=== PATIENT | male | born 1980 | race Asian ===

== ENCOUNTER 2024-02-21 17:10 | Inpatient (IN) | payer MEDICAID, SELFPAY ==
[2024-02-21] VITALS (11 sets, daily range): BP systolic 164–209; BP diastolic 111–134; PULSE 90–131; RESP 17–95; TEMP 36.6–37; O2SAT 94–97; BMI 24.0
--- NOTE | 2024-02-21 17:35 | EKG_ITS ---
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
--- NOTE | 2024-02-21 17:35 | XR_ITS ---
Examination: CTA carotids with intravenous contrast CTA brain, head with intravenous contrast. 2-D sagittal, coronal reconstructions. 3-D reconstructions. Exam date and time: February 21, 2024 1756 hrs. Indications: Stroke alert, onset dizziness weakness numbness in the left side of the body beginning 1:00 PM today CTDI: vol (mGy) 19.4 DLP: (mGycm) 474 Technique: Multiple CTA axial brain, head carotid images post intravenous contrast injection 75 cc, [id number]. 2-D sagittal, coronal reconstructions. 3-D reconstructions, 3-D post processing including vascular maximum intensity projection images. Low dose protocols were performed. One or more of the following dose reduction techniques were used; automated exposure control, adjustment of the mA and/or KV according to patient size, use of iterative reconstruction technique. Findings: No significant common carotid carotid bifurcation or internal carotid artery stenoses Dominant left vertebral artery with no critical stenoses No cerebral large vessel arterial occlusions, thrombus, dissection or cerebral aneurysm Impression: No significant neck arterial stenoses No cerebral large vessel arterial occlusions, thrombus, dissection or cerebral aneurysm
--- NOTE | 2024-02-21 17:35 | XR_ITS ---
Examination: CT brain head without contrast. 2-D sagittal coronal reconstructions Date and time of exam:February 21, 2024 at 1741 hrs. Indications: Stroke alert, onset dizziness, weakness left side of the body beginning 1:00 PM today CTDI: vol (mGy):50.3 DLP: (mGycm):1017 Technique: Multiple CT axial sections of the brain have been obtained, 5 mm slice thickness. Contrast has not been administered. 2-D sagittal, coronal reconstructions have been obtained Low dose protocols were performed. One or more of the following dose reduction techniques were used; automated exposure control, adjustment of the mA and/or KV according to patient size, use of iterative reconstruction technique. Findings: No significant ventricular enlargement. Multiple old appearing small basal ganglia infarcts Intra-axial or extra-axial hemorrhage density is not seen. No mass effect or midline shift Basal cisterns are not remarkable. Fourth ventricle is midline. Cranial vault intact. Impression: Negative for acute hemorrhage, mass effect or midline shift Multiple small old appearing basal ganglia infarcts, but clinical correlation advised Brain MRI follow-up would best assess for acute ischemic change
--- NOTE | 2024-02-21 17:58 | ESCONSULT_ITS ---
Tele Neuro Consultation Consultation Date 02/21/24 Most Recent Vital Signs Last Vital Signs Temp 97.9 F 02/21/24 17:25 Pulse 92 02/21/24 17:25 Resp 18 02/21/24 17:25 BP 209/132 H 02/21/24 17:25 Pulse Ox 97 02/21/24 17:25 O2 Del Method Room Air 02/21/24 17:25 Consultation Narrative [facility] Tele[facility]urology Consult Services Patient Name:???Diana Peter Date of :???1980 Date of Service:???02/21/2024 17:38:39 Diagnosis:?R20.2 - Paresthesia of skin Impression: ?43M presents noting R sided numbness off and on for the last 1 month, however today upon waking up at 1pm he noticed his left leg and left torso were numb. He is not sure that his left leg was clearly weak, but he did have trouble walking. He was at his baseline when he went to sleep at 0300. Patient denies a prior diagnosis of HTN. On exam with decreased sensation R face and LLE. CT head with acute/subacute/chronic hypodensities concerning for infarct in bilateral basal ganglia. Presentation concerning for stroke. Our recommendations are outlined below. Recommendations: ? Stroke/Telemetry Floor ? Neuro Checks ? Bedside Swallow Eval ? DVT Prophylaxis ? IV Fluids, Normal Saline ? Head of Bed 30 Degrees ? Euglycemia and Avoid Hyperthermia (PRN Acetaminophen) ? Initiate or continue Aspirin 325 MG daily ?Ok to lower blood pressure by about 15% in the ER ?MR brain w/wo Sign Out: ? Discussed with Emergency Department Provider Advanced Imaging:Advanced imaging has been ordered. Results pending. Metrics: Last Known Well: 02/21/2024 03:00:00 Dispatch Time: 02/21/2024 17:38:39 Arrival Time: 02/21/2024 17:10:00 Initial Response Time: 02/21/2024 17:41:16Symptoms: left sided numbness. Initial patient interaction: 02/21/2024 17:43:00 NIHSS Assessment Completed: 02/21/2024 17:50:06Patient is not a candidate for Thrombolytic. Thrombolytic Medical Decision: 02/21/2024 17:50:07Patient was not deemed candidate for Thrombolytic because of following reasons: LKW outside 4.5 hr window. . I personally Reviewed the CT Head and it Showed acute vs subacute vs chronic hypodensities bilateral basal ganglia Primary Provider Notified of Diagnostic Impression and Management Plan on: 02/21/2024 17:52:20 History of Present Illness:Patient is a 43 year old Male. Patient was brought by private transportation with symptoms of left sided numbness. 43M presents noting R sided numbness off and on for the last 1 month, however today upon waking up at 1pm he noticed his left leg and left torso were numb. He is not sure that his left leg was clearly weak, but he did have trouble walking. He was at his baseline when he went to sleep at 0300. ? Past Medical History: ?There is no history of Hypertension Medications: No Anticoagulant use? No Antiplatelet use Reviewed EMR for current medications Allergies:? Reviewed Social History: Smoking: Yes Family History: There is no family history of premature cerebrovascular disease pertinent to th is consultation ROS : 14 Points Review of Systems was performed and was negative except mentioned in HPI. Past Surgical History: There Is No Surgical History Contributory To Today?s Visit ? Examination: BP(204/133),?Pulse(106),?Blood Glucose(146) 1A: Level of Consciousness - Alert; keenly responsive?+ 0 1B: Ask Month and Age - 1 Question Right?+ 1 1C: Blink Eyes & Squeeze Hands - Performs Both Tasks?+ 0 2: Test Horizontal Extraocular Movements - Normal?+ 0 3: Test Visual Hill - No Visual Loss?+ 0 4: Test Facial Palsy (Use Grimace if Obtunded) - Normal symmetry?+ 0 5A: Test Left Arm Motor Drift - No Drift for 10 Seconds?+ 0 5B: Test Right Arm Motor Drift - No Drift for 10 Seconds?+ 0 6A: Test Left Leg Motor Drift - No Drift for 5 Seconds?+ 0 6B: Test Right Leg Motor Drift - No Drift for 5 Seconds?+ 0 7: Test Limb Ataxia (FNF/Heel-Hoang) - No Ataxia?+ 0 8: Test Sensation - Normal; No sensory loss?+ 0 9: Test Language/Aphasia - Normal; No aphasia?+ 0 10: Test Dysarthria - Normal?+ 0 11: Test Extinction/Inattention - No abnormality?+ 0 NIHSS Score:?1 NIHSS Free Text :?less sensation R face, L foot Pre-Morbid Modified Aiken Scale:0 Points = No symptoms at all Spoke with :?ED physcian This consult was conducted in real time using interactive audio and video technology. Patient was informed of the technology being used for this visit and agreed to proceed. Patient located in hospital and provider located at home/office setting. Patient is being evaluated for possible acute neurologic impairment and high probability of imminent or life-threatening deterioration. I spent total of 35 minutes providing care to this patient, including time for face to face visit via telemedicine, review of medical records, imaging studies and discussion of findings with providers, the patient and/or family. Dr Talia Rachel [facility] For Inpatient follow-up with [facility] physician please call [facility] at . As we are not an outpatient service for any post hospital d ischarge needs please contact the hospital for assistance. If you have any questions for the [facility] physicians or need to reconsult for clinical or diagnostic changes please contact us via [facility] at .
[2024-02-21] MEDS: hydrALAZINE INJ 20 MG/ML VIAL IV (18:07)
[2024-02-21 18:16] LABS: Basophils % (Auto) 0 % (0-2.5); Eosinophils # (Auto) 0.1 Thou/mm3 (0.0-0.5); Eosinophils % (Auto) 2 % (0-10); Hematocrit 59.9 % (41.0-53.0); Immature Granulocytes % (Auto) 0 % (0-0); Immature Granulocytes Auto 0.01 Thou/mm3 (0.00-0.00); Lymphocytes # (Auto) 1.7 Thou/mm3 (1.0-4.8); Lymphocytes % (Auto) 30 % (10-50); Mean Corpuscular HGB Conc 35.4 g/dl (31.0-37.0); Mean Corpuscular Hemoglobin 31.7 pg (25.0-35.0); Mean Corpuscular Volume 90 fL (80-100); Monocytes # (Auto) 0.4 Thou/mm3 (0.0-0.8); Monocytes % (Auto) 6 % (0-12); Neutrophils # (Auto) 3.5 Thou/mm3 (1.8-7.7); Neutrophils % (Auto) 61 % (37-80); Nucleated Red Blood Cell % 0 /100 WBC (0); Platelet Count 222 Thou/mm3 (140-440); RDW Standard Deviation 41.1 fL (35.1-43.9); Red Blood Count 6.68 Miln/mm3 (4.50-5.90); White Blood Count 5.7 Thou/mm3 (3.8-10.6)
--- NOTE | 2024-02-21 18:26 | PD.EDDIZZY ---
ED Dizzyness RME/HPI General Chief Complaint: Dizziness Stated Complaint: Dizzy and numb on left side Time Seen by Provider: 02/21/24 17:13 Arrival date/time: 02/21/24 17:10 This is a 43-year-old male that comes in with complaints of left leg left shoulder numbness that started At an unknown time. Patient states that he woke up approximately at 1:30 PM today and had the symptoms. Patient was ambulatory but stated that he had a hard time walking. Patient has no focal deficits upon initial assessment. Patient denies past medical history. Patient reports that he is an active smoker. Patient reports to smoking half a pack a day since he was 19 years old. Patient denies any surgeries. Patient reported dizziness and a mild headache. Patient arrives hypertensive to the emergency room. Related Data Previous Rx's ?Medication ?Instructions ?Recorded amlodipine 10 mg tablet (Norvasc) 10 mg PO QDAY 30 days #30 tabs 02/24/24 aspirin 81 mg tablet,delayed 81 mg PO QDAY 21 days #21 tabs 02/24/24 release atorvastatin 80 mg tablet (Lipitor) 80 mg PO HS 30 days #30 tabs 02/24/24 clopidogrel 75 mg tablet 75 mg PO QDAY 30 days #30 tabs 02/24/24 Allergies Allergy/AdvReac Type Severity Reaction Status Date / Time No Known Allergies Allergy Verified 02/21/24 17:16 Review of Systems Review of Systems Systems Reviewed: All systems reviewed, normal except as documented Past Medical History Past Medical History Comments PMH COMMENT: denies pmh ED Exam General General appearance: Present alert and in no apparent distress Head Head exam: Present atraumatic Eye Eye exam: Present normal appearance, PERRL and EOMI ENT ENT exam: Present normal exam, normal oropharynx and mucous membranes moist Neck Neck exam: Present normal inspection, full ROM and trachea midline Chest Chest inspection: Present normal inspection and symmetric chest wall rise Respiratory Respiratory exam: Present normal lung sounds bilaterally Cardiovascular Cardiovascular exam: Present regular rate, normal rhythm and normal heart sounds Abdominal Exam Abdominal exam: Present soft Extremities Exam Extremities exam: Present normal inspection and full ROM Back Exam Back exam: Present normal inspection and full ROM Neurological Exam Neurological exam: Present alert, oriented X3 and CN II-XII intact (no pronator drift, equal hand respiratory tech bilaterally, equal strengths bilateral legs, no focal deficits ) Psychiatric Psychiatric exam: Present normal affect and normal mood Skin Skin exam: Present warm, dry, intact and normal color Course Quality Measures none (admitted for stroke ) Orders Category Date Time Status Bedside Blood Glucose NOW Care 02/21/24 17:35 Active COVID-19 Screening Questionnaire NOW Care 02/21/24 20:10 Active Firm Administrator NOW Care 02/21/24 17:35 Active Continuous Pulse Oximetry NOW Care 02/21/24 17:35 Active Decision to Admit X1 Care 02/21/24 20:10 Completed EKG (ED ONLY) *Do not use* NOW Care 02/21/24 17:35 Completed EKG (ED ONLY) *Do not use* NOW Care 02/21/24 20:25 Completed Insert IV NOW Care 02/21/24 17:35 Completed NIH Stroke Scale now Care 02/21/24 17:35 Active NPO NOW Care 02/21/24 17:35 Completed Nurse Swallow Screen x1 Care 02/21/24 17:35 Active Consult to Neurology / Tele-Neurology Routine Cons 02/21/24 17:[address] angio stroke protocol Stat Exams 02/21/24 17:[address] stroke protocol Stat Exams 02/21/24 17:35 Completed EKG (ED Only) Stat Exams 02/21/24 17:35 Draft EKG (ED Only) Stat Exams 02/21/24 20:25 Draft Alcohol, Blood Medical Stat Lab 02/21/24 17:55 Completed B-Type Natriuretic Peptide Stat Lab 02/21/24 17:55 Completed CBC Stat Lab 02/21/24 17:55 Completed Comprehensive Metabolic Panel Stat Lab 02/21/24 17:55 Completed Drug Screen,Urine Stat Lab 02/21/24 18:38 Completed Magnesium Stat Lab 02/21/24 17:55 Completed Partial Thromboplastin Time Stat Lab 02/21/24 17:55 Completed Prothrombin Time with INR Stat Lab 02/21/24 17:55 Completed Troponin I Stat Lab 02/21/24 17:55 Completed Urinalysis Stat Lab 02/21/24 18:40 Completed Acetaminophen Tab [Tylenol ES Tab] Med 02/21/24 18:46 Discontinued 1,000 mg PO X1 ONE Aspirin Med 02/21/24 19:57 Discontinued 325 mg PO X1 ONE Nicardipine/Ns 20Mg Ivpb [Cardene Ivpb] Med 02/21/24 18:45 Discontinued 20 mg in 200 ml IV 5 mg/hr Sodium Chloride 0.9% 1000 ml [Ns] 1,000 ml Med 02/21/24 19:48 Discontinued IV 999 mls/hr hydrALAZINE INJ [Apresoline Inj] Med 02/21/24 17:36 Discontinued 20 mg IV X1 ONE Vital Signs Vital signs: Vital Signs Temperature 97.9 F 02/21/24 17:25 Pulse Rate 92 02/21/24 17:25 Respiratory Rate 18 02/21/24 17:25 Blood Pressure 209/132 H 02/21/24 17:25 Pulse Oximetry (%) 97 02/21/24 17:25 Oxygen Delivery Method Room Air 02/21/24 17:25 Procedures -ED EKG Interpretation #1: Date of EK02/21/24 Time of EK:16 Rate: 98 Interpretation: Interpreted by me (sinus rhythm with q waves in septal leads ) EKG Impression: No ectopy, Normal QRS and Normal intervals Dizziness MDM Narrative MDM Narrative:: This is a 43-year-old male that comes in with complaints of left leg left shoulder numbness that started At an unknown time. Patient states that he woke up approximately at 1:30 PM today and had the symptoms. Patient was ambulatory but stated that he had a hard time walking. Patient has no focal deficits upon initial assessment. Patient denies past medical history. Patient reports that he is an active smoker. Patient reports to smoking half a pack a day since he was 19 years old. Patient denies any surgeries. Patient reported dizziness and a mild headache. Patient arrives hypertensive to the emergency room. ct head: Findings: No significant ventricular enlargement. Multiple old appearing small basal ganglia infarcts Intra-axial or extra-axial hemorrhage density is not seen. No mass effect or midline shift Basal cisterns are not remarkable. Fourth ventricle is midline. Cranial vault intact. Impression: Negative for acute hemorrhage, mass effect or midline shift Multiple small old appearing basal ganglia infarcts, but clinical correlation advised Brain MRI follow-up would best assess for acute ischemic change cta head and neck: Findings: No significant common carotid carotid bifurcation or internal carotid artery stenoses Dominant left vertebral artery with no critical stenoses No cerebral large vessel arterial occlusions, thrombus, dissection or cerebral aneurysm Impression: No significant neck arterial stenoses No cerebral large vessel arterial occlusions, thrombus, dissection or cerebral aneurysm Labs significant for hgb 21.2 and hct of 59.9. Pt had elevated lfts. Patient hypertensive 200/100. Spoke to tele neurology which recommended to bring blood pressure down by 15 percent. Pt started on a nicardipine drip. Hospitalist called to admit patient. Patient data External records reviewed:: [facility] previous records Clinical information provided by:: patient Social determinants that could affect healthcare access:: none Patient has the following chronic illnesses:: none How is presenting disease/condition affected by chronic disease/condition?: no chronic disease Evaluation data The following diagnostics were reviewed and interpreted by me:: lab results, radiology exam(s) and EKG tracing(s) Lab and/or radiology exams considered but not ordered:: none Interpretation Summary: see note Medications / Prescriptions Medications or Prescriptions considered but not ordered:: none Medication administrations:: Medication Administration History Acetaminophen (Acetaminophen 325 Mg Tablet) 650 mg PO Q6H PRN PRN Reason: PAIN OR FEVER > 101 Stop: 03/22/24 20:28 Amlodipine Besylate (Amlodipine Besylate 5 Mg Tablet) 5 mg PO [facility] Stop: 03/26/24 20:59 Last Admin: 02/28/24 20:28 Dose: 5 mg Documented By: Admin: 02/27/24 20:21 Dose: 5 mg Documented By: Admin: 02/26/24 22:06 Dose: 5 mg Documented By: Admin: 02/25/24 20:56 Dose: 5 mg Documented By: TALAT Aspirin (Aspirin Ec 81 Mg Tabec) 81 mg PO QDAY [facility] Stop: 03/28/24 08:59 Last Admin: 02/28/24 08:51 Dose: 81 mg Documented By: Admin: 02/27/24 09:46 Dose: 81 mg Documented By: RYAN Atorvastatin Calcium (Atorvastatin Calcium 20 Mg Tablet) 80 mg PO [facility] Stop: 03/24/24 20:59 Last Admin: 02/28/24 20:24 Dose: 80 mg Documented By: Admin: 02/27/24 20:21 Dose: 80 mg Documented By: Admin: 02/26/24 22:06 Dose: 80 mg Documented By: Admin: 02/25/24 20:55 Dose: 80 mg Documented By: Admin: 02/24/24 20:10 Dose: 80 mg Documented By: Admin: 02/23/24 20:23 Dose: 80 mg Documented By: CHICO Clopidogrel Bisulfate (Clopidogrel Bisulfate 75 Mg Tablet) 75 mg PO QDAY [facility] Stop: 03/25/24 08:59 Last Admin: 02/26/24 11:35 Dose: Not Given Documented By: RYAN Non-Admin Reason: NPO Admin: 02/25/24 09:04 Dose: 75 mg Documented By: Admin: 02/24/24 08:32 Dose: 75 mg Documented By: REYNOLD Heparin Sodium (Porcine) (Heparin Sod Inj 5000 Unit/Ml Vial) 5,000 unit SC BID [facility] Stop: 03/09/24 20:59 Last Admin: 02/28/24 20:24 Dose: 5,000 unit Documented By: TALAT Co-signed By: Admin: 02/28/24 08:52 Dose: 5,000 unit Documented By: DEWEY Co-signed By: TAMMY Admin: 02/27/24 20:21 Dose: 5,000 unit Documented By: CHAO Co-signed By: CHICO Admin: 02/27/24 09:47 Dose: 5,000 unit Documented By: RYAN Co-signed By: REYNOLD Admin: 02/26/24 22:13 Dose: Not Given Documented By: YENIFER Non-Admin Reason: hold per MD Admin: 02/26/24 11:36 Dose: Not Given Documented By: RYAN Non-Admin Reason: Held for Procedure Admin: 02/25/24 20:59 Dose: 5,000 unit Documented By: TALAT Co-signed By: Admin: 02/25/24 09:04 Dose: 5,000 unit Documented By: RYAN Co-signed By: GALLO Admin: 02/24/24 20:11 Dose: 5,000 unit Documented By: CHICO Co-signed By: ALIN Lisinopril (Lisinopril 2.5 Mg Tablet) 5 mg PO QDAY [facility] Stop: 03/28/24 08:59 Last Admin: 02/28/24 08:51 Dose: 5 mg Documented By: Admin: 02/27/24 09:46 Dose: 5 mg Documented By: RYAN Ondansetron HCl (Ondansetron Inj 2 Mg/Ml Inj 2 Ml) 4 mg IV Q6H PRN; Protocol PRN Reason: NAUSEA OR VOMITING Stop: 03/22/24 20:28 Pantoprazole Sodium (Pantoprazole 40 Mg Tablet) 40 mg PO QDAY [facility] Stop: 03/23/24 08:59 Last Admin: 02/28/24 08:51 Dose: 40 mg Documented By: Admin: 02/27/24 09:46 Dose: 40 mg Documented By: Admin: 02/26/24 11:36 Dose: Not Given Documented By: JRR Non-Admin Reason: NPO Admin: 02/25/24 09:04 Dose: 40 mg Documented By: Admin: 02/24/24 08:32 Dose: 40 mg Documented By: Admin: 02/23/24 08:17 Dose: 40 mg Documented By: Admin: 02/22/24 09:53 Dose: 40 mg Documented By: DEWEY Sennosides (Senna Tablet) 1 tab PO QDAY [facility]; Protocol Stop: 03/23/24 08:59 Last Admin: 02/28/24 08:53 Dose: Not Given Documented By: JTulio Non-Admin Reason: Patient Refused Admin: 02/27/24 09:46 Dose: 1 tab Documented By: Admin: 02/26/24 11:36 Dose: Not Given Documented By: JRR Non-Admin Reason: NPO Admin: 02/25/24 09:04 Dose: 1 tab Documented By: Admin: 02/24/24 08:33 Dose: 1 tab Documented By: Admin: 02/23/24 08:17 Dose: 1 tab Documented By: Admin: 02/22/24 09:53 Dose: 1 tab Documented By: DEWEY Discontinued Medications Acetaminophen (Acetaminophen 500 Mg Tablet) 1,000 mg PO X1 ONE Stop: 02/21/24 18:47 Last Admin: 02/21/24 18:52 Dose: Not Given Documented By: EMILIA Non-Admin Reason: Patient Refused Amlodipine Besylate (Amlodipine Besylate 5 Mg Tablet) 10 mg PO QDAY [facility] Stop: 03/25/24 08:59 Last Admin: 02/24/24 08:32 Dose: 10 mg Documented By: REYNOLD Amlodipine Besylate (Amlodipine Besylate 5 Mg Tablet) 5 mg PO HS [facility] Stop: 03/26/24 20:59 Amlodipine Besylate (Amlodipine Besylate 5 Mg Tablet) 5 mg PO HS [facility] Stop: 03/26/24 20:59 Aspirin (Aspirin 325 Mg Tablet) 325 mg PO X1 ONE Stop: 02/21/24 19:58 Last Admin: 02/21/24 20:53 Dose: 325 mg Documented By: ZARA Aspirin (Aspirin Ec 81 Mg Tabec) 81 mg PO QDAY [facility] Stop: 03/23/24 08:59 Aspirin (Aspirin 325 Mg Tablet) 325 mg PO QDAY [facility] Stop: 03/23/24 08:59 Last Admin: 02/23/24 08:17 Dose: 325 mg Documented By: Admin: 02/22/24 09:53 Dose: 325 mg Documented By: DEWEY Aspirin (Aspirin Ec 81 Mg Tabec) 81 mg PO QDAY [facility] Stop: 03/25/24 08:59 Last Admin: 02/26/24 11:35 Dose: Not Given Documented By: RYAN Non-Admin Reason: NPO Admin: 02/25/24 09:04 Dose: 81 mg Documented By: Admin: 02/24/24 08:32 Dose: 81 mg Documented By: REYNOLD Atorvastatin Calcium (Atorvastatin Calcium 20 Mg Tablet) 40 mg PO [facility] Stop: 03/22/24 20:59 Last Admin: 02/22/24 20:04 Dose: 40 mg Documented By: Admin: 02/21/24 20:52 Dose: 40 mg Documented By: ZARA Benzocaine (Benzocaine 20% (Hurricaine) [place] 1 Dose) Confirm Administered Dose 1 dose TOP .STK-MED ONE Stop: 02/26/24 12:18 Last Admin: 02/26/24 14:20 Dose: Not Given Documented By: CU Non-Admin Reason: Override Medication Benzocaine (Benzocaine 20% (Hurricaine) [place] 1 Dose) 0 dose TOP X1 ONE Stop: 02/26/24 13:07 Last Admin: 02/26/24 13:07 Dose: 1 dose Documented By: MILLIE Fentanyl Citrate (Fentanyl Cit Inj 50 Mcg/Ml Amp 2ml) Confirm Administered Dose 200 mcg .ROUTE .STK-MED ONE Stop: 02/26/24 12:18 Last Admin: 02/26/24 14:20 Dose: Not Given Documented By: CU Non-Admin Reason: Override Medication Fentanyl Citrate (Fentanyl Cit Inj 50 Mcg/Ml Amp 2ml) 100 mcg IVP X1 ONE Stop: 02/26/24 13:07 Last Admin: 02/26/24 13:08 Dose: 100 mcg Documented By: MILLIE Flumazenil (Flumazenil Inj 0.1 Mg/Ml Vial 10 Ml) Confirm Administered Dose 1 mg .ROUTE .STK-MED ONE Stop: 02/26/24 12:19 Last Admin: 02/26/24 14:20 Dose: Not Given Documented By: MILLIE Non-Admin Reason: Override Medication Folic Acid (Folic Acid 1 Mg Tablet) 1 mg PO BID [facility] Stop: 02/27/24 20:59 Folic Acid (Folic Acid 1 Mg Tablet) 1 mg PO BID [facility] Stop: 02/27/24 10:04 Last Admin: 02/27/24 09:46 Dose: 1 mg Documented By: Admin: 02/26/24 22:06 Dose: 1 mg Documented By: Admin: 02/26/24 11:35 Dose: Not Given Documented By: RYAN Non-Admin Reason: Nausea Admin: 02/25/24 20:56 Dose: 1 mg Documented By: Admin: 02/25/24 09:04 Dose: 1 mg Documented By: Admin: 02/24/24 20:10 Dose: 1 mg Documented By: Admin: 02/24/24 08:33 Dose: 1 mg Documented By: Admin: 02/23/24 20:24 Dose: 1 mg Documented By: Admin: 02/23/24 08:18 Dose: 1 mg Documented By: Admin: 02/22/24 20:05 Dose: 1 mg Documented By: Admin: 02/22/24 10:10 Dose: 1 mg Documented By: DEWEY Hydralazine HCl (Hydralazine Inj 20 Mg/Ml Vial) 20 mg IV X1 ONE Stop: 02/21/24 17:37 Last Admin: 02/21/24 18:07 Dose: 20 mg Documented By: EMILIA Hydralazine HCl (Hydralazine Inj 20 Mg/Ml Vial) 20 mg IV X1 ONE Stop: 02/23/24 11:39 Last Admin: 02/23/24 11:42 Dose: 20 mg Documented By: REYNOLD Nicardipine/Sodium Chloride (Cardene Ivpb) 20 mg in 200 mls @ 50 mls/hr IV .Q4H PRN; Protocol PRN Reason: Per Protocol Stop: 03/22/24 18:44 Sodium Chloride (Ns) 1,000 mls @ 999 mls/hr IV .Q1H1M ONE Stop: 02/21/24 20:48 Last Infusion: 02/21/24 21:59 Dose: Infused Documented By: Admin: 02/21/24 20:52 Dose: 999 mls/hr Documented By: ZARA Lactated Ringer's (Lactated Ringers) 1,000 mls @ 150 mls/hr IV .Q6H40M [facility] Stop: 02/27/24 07:23 Sodium Chloride (Ns) 1,000 mls @ 150 mls/hr IV .Q6H40M [facility] Stop: 02/27/24 08:05 Last Admin: 02/27/24 17:30 Dose: Not Given Documented By: RYAN Non-Admin Reason: Discontinued Admin: 02/27/24 02:40 Dose: 150 mls/hr Documented By: Infusion: 02/27/24 02:37 Dose: Infused Documented By: Admin: 02/26/24 19:56 Dose: 150 mls/hr Documented By: Infusion: 02/26/24 19:56 Dose: Infused Documented By: Admin: 02/26/24 15:27 Dose: 150 mls/hr Documented By: RYAN Comments: started 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,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 Labetalol HCl (Labetalol Inj 5 Mg/Ml Vial 20 Ml) 10 mg IVP Q6H PRN PRN Reason: hypertension Stop: 03/22/24 20:44 Last Admin: 02/23/24 08:19 Dose: 10 mg Documented By: Admin: 02/21/24 21:51 Dose: 10 mg Documented By: ZARA Comments: Lisinopril (Lisinopril 2.5 Mg Tablet) 5 mg PO QDAY [facility] Stop: 03/25/24 12:44 Last Admin: 02/24/24 13:32 Dose: 5 mg Documented By: REYNOLD Lisinopril (Lisinopril 2.5 Mg Tablet) 5 mg PO QDAY [facility] Stop: 03/25/24 12:44 Last Admin: 02/26/24 11:36 Dose: Not Given Documented By: RYAN Non-Admin Reason: NPO Admin: 02/25/24 09:05 Dose: 5 mg Documented By: RYAN Lisinopril (Lisinopril 2.5 Mg Tablet) 5 mg PO X1 ONE Stop: 02/26/24 15:07 Last Admin: 02/26/24 15:27 Dose: 5 mg Documented By: RYAN Lorazepam (Lorazepam 0.5 Mg Tablet) 0.5 mg PO Q4HR PRN PRN Reason: CIWA Score 2-6 Stop: 02/27/24 09:41 Lorazepam (Lorazepam 0.5 Mg Tablet) 1 mg PO Q4HR PRN PRN Reason: CIWA SCORE 7-11 Stop: 02/27/24 09:41 Lorazepam (Lorazepam 0.5 Mg Tablet) 2 mg PO Q4HR PRN PRN Reason: CIWA SCORE 12-15 Stop: 02/27/24 09:41 Metoprolol Tartrate (Metoprolol Tartrate Inj 1 Mg/Ml Amp 5 Ml) 5 mg IVP X1 ONE Stop: 02/21/24 21:52 Last Admin: 02/21/24 23:41 Dose: Not Given Documented By: VR Non-Admin Reason: Cancelled by Provider Midazolam HCl (Midazolam Inj 1 Mg/Ml Vial 2 Ml) Confirm Administered Dose 6 mg .ROUTE .STK-MED ONE Stop: 02/26/24 12:18 Last Admin: 02/26/24 14:20 Dose: Not Given Documented By: CU Non-Admin Reason: Override Medication Midazolam HCl (Midazolam Inj 1 Mg/Ml Vial 2 Ml) 6 mg IV X1 ONE Stop: 02/26/24 13:07 Last Admin: 02/26/24 13:08 Dose: 6 mg Documented By: MILLIE Naloxone HCl (Naloxone Inj 0.4 Mg/Ml Vial) Confirm Administered Dose 0.4 mg .ROUTE .STK-MED ONE Stop: 02/26/24 12:19 Last Admin: 02/26/24 14:20 Dose: Not Given Documented By: CU Non-Admin Reason: Override Medication Ondansetron HCl (Ondansetron Inj 2 Mg/Ml Inj 2 Ml) Confirm Administered Dose 4 mg .ROUTE .STK-MED ONE Stop: 02/26/24 12:19 Last Admin: 02/26/24 14:21 Dose: Not Given Documented By: CU Non-Admin Reason: Override Medication Potassium Chloride (Potassium Chloride 20 Meq Tabcr) 40 meq PO X1 ONE Stop: 02/22/24 09:51 Last Admin: 02/22/24 10:09 Dose: 40 meq Documented By: DEWEY Potassium Chloride (Potassium Chloride 20 Meq Tabcr) 40 meq PO X1 ONE Stop: 02/24/24 12:40 Last Admin: 02/24/24 13:32 Dose: 40 meq Documented By: REYNOLD Thiamine HCl (Thiamine 100 Mg Tablet) 100 mg PO BID [facility] Stop: 02/27/24 20:59 Thiamine HCl (Thiamine 100 Mg Tablet) 100 mg PO BID [facility] Stop: 02/27/24 10:04 Last Admin: 02/27/24 09:46 Dose: 100 mg Documented By: Admin: 02/26/24 22:07 Dose: 100 mg Documented By: Admin: 02/26/24 11:36 Dose: Not Given Documented By: RYAN Non-Admin Reason: NPO Admin: 02/25/24 20:57 Dose: 100 mg Documented By: Admin: 02/25/24 09:04 Dose: 100 mg Documented By: Admin: 02/24/24 20:11 Dose: 100 mg Documented By: Admin: 02/24/24 08:33 Dose: 100 mg Documented By: Admin: 02/23/24 20:24 Dose: 100 mg Documented By: Admin: 02/23/24 08:17 Dose: 100 mg Documented By: Admin: 02/22/24 20:05 Dose: 100 mg Documented By: Admin: 02/22/24 10:10 Dose: 100 mg Documented By: MarcelT see mar Consultations Consultation(s) initiated? (list below): No Diagnosis Most likely diagnosis given after review of the tests above:: stroke, brain bleed Admission Indicated Admission indicated?: indicated Admission Request Was there a request for admission?: Yes Admission Attestation Admission request attestation: Discussed case with [] from Hospitalist service regarding admission. Discussed patients ED course, exam findings, labs, and radiology results. The Hospitalist [agrees,declines] to accept the patient for admission. Disposition Plan Disposition Plan: Discharge Discharge Attestation Discharge Attestation: The patient and all family members were given an opportunity to ask questions and understood the discharge instructions. Discharge instructions specifically effects, indications for sooner follow up or return to the emergency department, and the expected course of current diagnosis. Patient condition: Stable Discharge Plan Plan Patient Disposition: Admit Acute Care w/in Hospital Disposition Comment: Hold discharge pending further instructions please! Patient condition on transfer: Stable Problem List Clinical Impression: Polycythemia, Hypertensive urgency, Acute CVA (cerebrovascular accident) PA/CARVER HAND Supervising Physician PA/CARVER HAND Supervising Physician: geraldine
[2024-02-21 18:29] LABS: INR 1.2 (0.9-1.3); Partial Thromboplastin Time 30.3 Seconds (22.0-36.0); Prothrombin Time 12.7 Seconds (9.0-12.2)
[2024-02-21 18:33] LABS: Hemoglobin 21.2 g/dL (13.5-16.0)
[2024-02-21 18:35] LABS: Alanine Aminotransferase 50 U/L (10-49); Albumin, Serum 4.9 gm/dL (3.5-5.0); Albumin/Globulin Ratio 1.6 (1.2-2.2); Alcohol, Blood Medical < 3.0 mg/dL (0-10.0); Alkaline Phosphatase 78 U/L (46-116); Anion Gap 7 (7-16); Aspartate Amino Transferase 37 U/L (0-34); BUN/Creatinine Ratio 7 Ratio (12-20); Bilirubin,Total 1.2 mg/dL (0.3-1.2); Blood Urea Nitrogen 8 mg/dL (9-23); Calcium 10.1 mg/dL (8.3-10.6); Calcium (Corrected) 10.1 mg/dL (8.5-10.1); Carbon Dioxide 25.7 mMol/L (20.0-31.0); Chloride 103 mMol/L (98-107); Creatinine (Component) 1.1 mg/dL (0.6-1.3); Glucose 123 mg/dL (74-106); Magnesium 1.9 mg/dL (1.6-2.6); Osmolality,Calculated 271 (275-295); Potassium 3.8 mMol/L (3.4-5.1); Sodium 136 mMol/L (136-145); Total Protein 7.9 gm/dL (5.7-8.2); Troponin I < 0.002 ng/mL (0.0-0.045); eGFR > 60 See Note
[2024-02-21 18:48] LABS: B-Type Natriuretic Peptide < 20 pg/mL (0-100)
[2024-02-21 19:12] LABS: Collection Type, Urine Clean Catch; Squamous Epithelial Cell,Urine 0 /hpf (0-5); WBC,Urine 0 /hpf (0-5)
[2024-02-21 19:22] LABS: Bilirubin,Urine Negative (Negative); Blood,Urine Negative (Negative); Clarity,Urine Clear (Clear/Hazy); Color,Urine Colorless (Lt Yel-Yel); Glucose, Urine Negative (Negative); Ketones,Urine Negative (Negative); Leukocyte Esterase,Urine Negative (Negative); Nitrite,Urine Negative (Negative); PH,Urine 6.5 (5.0-7.0); Protein,Urine Negative (Neg - Trace); RBC,Urine < 1 /hpf (0-3); Specific Gravity,Urine 1.017 (1.001-1.035); Urobilinogen,Urine Negative mg/dL (0.0-1.0)
[2024-02-21 19:31] LABS: Amphetamine/Methamp Scrn,U Negative (Negative); Barbiturate Screen,Urine Negative (Negative); Benzodiazepines Screen,Urine Negative (Negative); Benzoylecgonine Screen, Ur Negative (Negative); Fentanyl Screen,Urine Negative (Negative); Opiate Screen,Urine Negative (Negative); THC Screen,Urine Negative (Negative)
--- NOTE | 2024-02-21 20:25 | EKG_ITS ---
[facility] Test Date: 2024-02-21 Pat Name: RUTHIE WALTERS Department: Room: - Gender: Male Circular [place]: : 1980 Requested By: Doug Payne Order Number: [id number] Reading MD: Doug Payne Measurements Intervals [place] Rate: 129 P: 56 UT: 166 QRS: 21 QRSD: 83 T: 40 QT: 297 QTc: 436 Interpretive Statements SINUS TACHYCARDIA SEPTAL MYOCARDIAL INFARCTION , PROBABLY OLD [40+ ms Q WAVE IN V1/V2] Compared to ECG 02/21/2024 18:16:23 Sinus rhythm no longer present Myocardial infarct finding still present /[id number]/[id number]
--- NOTE | 2024-02-21 20:34 | ECHO_ITS ---
Transthoracic Echo Report Ht (in): 64 Wt (lb): 140 Exam Location: Portable Status: Emergency Dialysis Equipment Technician: Emma Elliott Indications: Procedure Performed: BP: 166 / 122 HR: 96 Rhythm: Sinus Technical Quality: Fair Contrast: Agitated Saline Total Dose (mL): MEASUREMENTS (Male / Female) Normal Values 2D ECHO LV Diastolic Diameter PLAX 4.2 cm 4.2 - 5.9 / 3.9 - 5.3 cm LV Systolic Diameter PLAX 2.6 cm IVS Diastolic Thickness 0.9 cm 0.6 - 1.0 / 0.6 - 0.9 cm LVPW Diastolic Thickness 0.8 cm 0.6 - 1.0 / 0.6 - 0.9 cm LV Relative Wall Thickness 0.4 LVOT Diameter 2.0 cm LA Volume Index 16.2 cm?/m? 16 - 28 cm?/m? Ascending Aorta Diameter 3.0 cm M-MODE Aortic Root Diameter MM 2.8 cm LA Systolic Diameter MM 2.9 cm LA Ao Ratio MM 1.0 AV Cusp Separation MM 1.9 cm DOPPLER AV Peak Velocity 96.1 cm/s AV Peak Gradient 3.7 mmHg AV Mean Gradient 2.0 mmHg AV Velocity Time Integral 22.2 cm LVOT Peak Velocity 91.6 cm/s LVOT Peak Gradient 3.4 mmHg LVOT Velocity Time Integral 20.2 cm LVOT Cardiac Index 3579.4 cm?/min?m? AV Area Cont Eq vti 2.9 cm? AV Area Cont Eq pk 3.0 cm? MV Peak Velocity 73.2 cm/s MV Peak Gradient 2.1 mmHg MV Mean Velocity 46.2 cm/s MV Mean Gradient 1.0 mmHg MV Area PHT 4.2 cm? Mitral E Point Velocity 72.8 cm/s Mitral A Point Velocity 61.1 cm/s Mitral E to A Ratio 1.2 LV E' Lateral Velocity 9.1 cm/s Mitral E to LV E' Lateral Ratio 8.0 LV E' Septal Velocity 7.4 cm/s Mitral E to LV E' Septal Ratio 9.8 FINDINGS Left Ventricle Normal left ventricular size, wall thickness, systolic function with no obvious regional wall motion abnormalities. The ejection fraction is visually estimated at 65-70%. Right Ventricle The right ventricle is normal in size and systolic function. Left Atrium The left atrium is normal by two-dimensional, color flow and Doppler imaging with no structural abnormalities, no thrombus formation present. Right Atrium The right atrium is normal by two-dimensional imaging, color flow and Doppler imaging with no struct ural abnormalities, no thrombus formation present. Atrial Septum The interatrial septum appears normal with no evidence of a shunt. Aorta The aorta is normal by two-dimensional, color flow and Doppler interrogation. Mitral Valve The mitral valve is normal by two-dimensional, color flow and Doppler interrogation. There is trace mitral valve regurgitation. Aortic Valve The aortic valve is trileaflet and normal by two-dimensional, color flow and Doppler interrogation. There is no significant aortic valve regurgitation. Tricuspid Valve The tricuspid valve is normal by two-dimensional, color flow and Doppler interrogation. There is no significant tricuspid valve regurgitation. Pulmonic Valve The pulmonic valve is not well visualized. There is no significant pulmonic valve regurgitation. Vessels The pulmonary artery appears normal. The inferior vena cava pulmonary and hepatic veins appear wes l. Pericardium The pericardium is normal by two-dimensional imaging. There is no significant pericardial effusion. CONCLUSIONS Negative bubble study. No evidence of PFO or ASD. Normal LV size and function. Estimated EF 65-70% Normal RV size and function. Trace MR. Arminda Breen (Electronically Signed) Final Date: 25 February 2024 10:09
[2024-02-21] MEDS: SODIUM CHLORIDE 0.9% 1000 ML 1,000 ML 999 ML IV (20:52)
[2024-02-21] MEDS: ATORVASTATIN CALCIUM 20 MG TABLET 40 MG PO (20:52)
[2024-02-21] MEDS: Aspirin 325 MG TABLET PO (20:53)
--- NOTE | 2024-02-21 21:48 | PC.NURSE ---
report received from Windy Henriquez in ED
[2024-02-21] MEDS: LABETALOL INJ 5 MG/ML VIAL 20 ML 10 MG IVP (21:51)
--- NOTE | 2024-02-21 21:52 | PD.RESHP ---
Documentation for date of: 02/21/24 [facility] History of Present Illness History of present illness: A 43-year-old male with no significant medical history presented to the emergency department after experiencing dizziness, left leg and shoulder numbness, and difficulty walking. These symptoms began at 1:30 PM after waking from sleep. The patient also reported associated dizziness and a headache, but denied any prior similar episodes, loss of consciousness, seizures, vision changes, chest pain, shortness of breath, or palpitations. On examination, the patient was hypertensive with a blood pressure of 210/132, but other vital signs were normal. Laboratory results showed polycythemia (hemoglobin 21.2, hematocrit 59.9) with other labs unremarkable. An EKG showed sinus tachycardia. A stroke alert was initiated, and a teleneuro consultation was requested. The NIH Stroke Scale score was 1. A CT head scan revealed multiple small old basal ganglia infarcts but no hemorrhage, mass, or midline shift. A CTA of the head and neck showed no large vessel occlusions . Based on these findings, teleneuro recommended admitting the patient for further evaluation and workup. In ED patient patient received hydralazine 20 IV push x 1, and was placed on nicardipine drip. Patient will be admitted for CVA/TIA as well as hypertensive emergency treatment and management. #PMH as above #PSH none #Allergies NKDA #Social history patient smokes 1 pack daily for more than 20 years, 5-6 beer daily, denies any recreational drug use, lives with the Review of Systems Review of Systems Systems Reviewed: All systems reviewed, normal except as documented Exam Vital Signs Temp Pulse Resp BP Pulse Ox O2 Del Method 98.6 F 118 H 22 H 164/128 H 95 Room Air 02/21/24 18:40 02/21/24 21:06 02/21/24 21:06 02/21/24 21:06 02/21/24 21:06 02/21/24 21:06 Narrative Exam GENERAL: no acute distress, AAO x3, well nourished. HEENT: Head AT/ NC. Mucous membranes moist. PERRL. NECK: Supple, no lymphadenopathy, no carotid bruits. CARDIOVASCULAR: tachicardic. Normal S1/S2, No m/r/g. No pitting edema of bilateral LEs. RESPIRATORY: CTAB. No wheezing, rhonchi, crackles. GASTROINTESTINAL: Abdomen soft, non tender no palpable masses. Bowel sounds present in all 4 quadrants. MUSCULOSKELETAL:? No cyanosis or edema, no visible joint swelling. NEUROLOGICAL: CN II-XII grossly intact. No focal deficits. Sensation intact, symmetric. PSYCHIATRIC: Awake and alert, not agitated, normal mood and affect. INTEGUMENTARY: No obvious rashes, no jaundice, normal turgor. Results: Labs 02/22/24 04:41 02/22/24 04:41 Labs: Short CBC 02/21/24 Range/Units 17:55 WBC 5.7 (3.8-10.6) Thou/mm3 Hgb 21.2 H* (13.5-16.0) g/dL Hct 59.9 H (41.0-53.0) % Plt Count 222 (140-440) Thou/mm3 BMP 02/21/24 17:55 Sodium 136 Potassium 3.8 Chloride 103 Carbon Dioxide 25.7 BUN 8 L Creatinine 1.1 Glucose 123 H Calcium 10.1 Cardiac Enzymes 02/21/24 Range/Units 17:55 Troponin I < 0.002 (0.0-0.045) ng/mL Liver Function 02/21/24 Range/Units 17:55 Total Bilirubin 1.2 (0.3-1.2) mg/dL AST 37 H (0-34) U/L ALT 50 H (10-49) U/L Alkaline Phosphatase 78 (46-116) U/L Albumin 4.9 (3.5-5.0) gm/dL Urine 02/21/24 Range/Units 18:40 Urine Color Colorless A (Lt Yel-Yel) Urine Clarity Clear (Clear/Hazy) Urine pH 6.5 (5.0-7.0) Ur Specific [place] 1.017 (1.001-1.035) Urine Protein Negative (Neg - Trace) Urine Glucose (UA) Negative (Negative) Quality Measures Quality Measures VTE prophylaxis Medications Home Medications and Allergies Home Medications ?Medication ?Instructions ?Recorded ?Confirmed ?Type No Known Home Medications 02/21/24 02/21/24 History Allergies Allergy/AdvReac Type Severity Reaction Status Date / Time No Known Allergies Allergy Verified 02/21/24 17:16 Visit Medications Acetaminophen (Acetaminophen 325 Mg Tablet) 650 mg PO Q6H PRN PRN Reason: PAIN OR FEVER > 101 Stop: 03/22/24 20:28 Aspirin (Aspirin Ec 81 Mg Tabec) 81 mg PO QDAY MINO Stop: 03/23/24 08:59 Atorvastatin Calcium (Atorvastatin Calcium 20 Mg Tablet) 40 mg PO HS MINO Stop: 03/22/24 20:59 Last Admin: 02/21/24 20:52 Dose: 40 mg Labetalol HCl (Labetalol Inj 5 Mg/Ml Vial 20 Ml) 10 mg IVP Q6H PRN PRN Reason: hypertension Stop: 03/22/24 20:44 Metoprolol Tartrate (Metoprolol Tartrate Inj 1 Mg/Ml Amp 5 Ml) 5 mg IVP X1 ONE Stop: 02/21/24 21:52 Ondansetron HCl (Ondansetron Inj 2 Mg/Ml Inj 2 Ml) 4 mg IV Q6H PRN; Protocol PRN Reason: NAUSEA OR VOMITING Stop: 03/22/24 20:28 Pantoprazole Sodium (Pantoprazole 40 Mg Tablet) 40 mg PO QDAY MINO Stop: 03/23/24 08:59 Sennosides (Senna Tablet) 1 tab PO QDAY [facility]; Protocol Stop: 03/23/24 08:59 Discontinued Medications Acetaminophen (Acetaminophen 500 Mg Tablet) 1,000 mg PO X1 ONE Stop: 02/21/24 18:47 Last Admin: 02/21/24 18:52 Dose: Not Given Aspirin (Aspirin 325 Mg Tablet) 325 mg PO X1 ONE Stop: 02/21/24 19:58 Last Admin: 02/21/24 20:53 Dose: 325 mg Hydralazine HCl (Hydralazine Inj 20 Mg/Ml Vial) 20 mg IV X1 ONE Stop: 02/21/24 17:37 Last Admin: 02/21/24 18:07 Dose: 20 mg Nicardipine/Sodium Chloride (Cardene Ivpb) 20 mg in 200 mls @ 50 mls/hr IV .Q4H PRN; Protocol PRN Reason: Per Protocol Stop: 03/22/24 18:44 Sodium Chloride (Ns) 1,000 mls @ 999 mls/hr IV .Q1H1M ONE Stop: 02/21/24 20:48 Last Admin: 02/21/24 20:52 Dose: 999 mls/hr Assessment & Plan Plan 43-year-old male with past medical history of hypertension not on any medication was admitted for CVA/TIA rule out and hypertensive urgency treatment and management. #Dizziness #Headache #Left-sided numbness/weakness DDx will include CVA/TIA versus hypertensive urgency In ED patient was given 20 of IV push hydralazine, and was placed on nicardipine drip CT head was done which was negative for acute hemorrhage, mass effect or midline shift, showed multiple small old appearing basal ganglia infarcts, CTA head/neck was negative for any LVO, -Activate stroke protocol order set -NIHSS score 1. -Patient is not a candidate for Thrombolytic therapy,LWK above 4.5 hours. -Admit to telemetry -Neurochecks every 4 -Seizure precaution -Head of bed elevation 30 degree -N.p.o. for now -Bedside swallow evaluation -Aspirin 81 mg daily -Lipitor 40 mg daily -Tylenol as needed to avoid hyperthermia -Euglycemia state -Hemoglobin A1c ordered, follow-up with results -MRI w/wo contrast -Echo ordered -Dr Olson was consulted, recommendations appreciated -Physical therapy evaluation. -DVT prophylaxis with SCDs due to risk of bleeding -Control risk factors such as HTN, HLD -labetolol 10 PRN for SBP>210,DBP>110, HR>90 -Continue to closely monitor and follow-up with results #?polycitemia vera Elevated HxH, dizziness, headache ,Hyperviscosity -blood smear, -Jak2 mutation send out lab Disposition:Temetryle DVT prophylaxis: SCDs GI prophylaxis: none Diet: NPO Lines: PIV CODE STATUS:Full code Patient care was discussed with attending physician Dr. Elmer Toney MD PGY-2 I have carefully reviewed this document. Due to imperfections in the voice software, there could be grammatical errors including phonetic/typographic errors. This in no way compromises the medical care the patient is receiving Attending Provider Attestation/Addendum I reviewed labs, imaging, EKG, home medications and prior available records. Face to face evaluation was performed by me. I have personally examined the patient and discussed assessment and plan with the IM team. I reviewed the resident note and agree with the plan with exceptions as below. 43-year-old male with history of tobacco use who presented with a chief complaint of left sided numbness and weakness started around 1:30 PM on the day of admission in addition to weakness and imbalance. His symptoms resolved at the time of my evaluation. CT head showed multiple bilateral basal ganglia acute versus subacute infarcts. He was admitted for further workup. Left-sided weakness: Differential diagnosis includes CVA versus TIA versus MS versus hypertensive encephalopathy. Consulted teleneurology: Recommended aspirin, atorvastatin, 15% reduction in the BP, and brain MRI. Continue frequent neurochecks every 4 hours. Hypertensive emergency: He was started on nicardipine drip in the ED. Stopped the nicardipine drip after we reached the 15% reduction goal. IV labetalol pushes as needed. Monitor BP. Tobacco use: Counseled the patient regarding importance of smoking cessation.
[2024-02-22] VITALS (8 sets, daily range): BP systolic 138–183; BP diastolic 92–110; PULSE 68–115; RESP 12–97; TEMP 36.1–36.6; O2SAT 95–98; BMI 23.6
[2024-02-22 05:27] LABS: Misc Send Out* See Sep Rpt
[2024-02-22 05:47] LABS: Basophils % (Auto) 0 % (0-2.5); Eosinophils # (Auto) 0.1 Thou/mm3 (0.0-0.5); Eosinophils % (Auto) 1 % (0-10); Hematocrit 57.6 % (41.0-53.0); Hemoglobin 19.7 g/dL (13.5-16.0); Immature Granulocytes % (Auto) 0 % (0-0); Immature Granulocytes Auto 0.02 Thou/mm3 (0.00-0.00); Lymphocytes # (Auto) 1.8 Thou/mm3 (1.0-4.8); Lymphocytes % (Auto) 24 % (10-50); Mean Corpuscular HGB Conc 34.2 g/dl (31.0-37.0); Mean Corpuscular Hemoglobin 31.5 pg (25.0-35.0); Mean Corpuscular Volume 92 fL (80-100); Monocytes # (Auto) 0.6 Thou/mm3 (0.0-0.8); Monocytes % (Auto) 8 % (0-12); Neutrophils # (Auto) 5.1 Thou/mm3 (1.8-7.7); Neutrophils % (Auto) 66 % (37-80); Nucleated Red Blood Cell % 0 /100 WBC (0); Platelet Count 223 Thou/mm3 (140-440); RDW Standard Deviation 42.5 fL (35.1-43.9); Red Blood Count 6.26 Miln/mm3 (4.50-5.90); White Blood Count 7.7 Thou/mm3 (3.8-10.6)
[2024-02-22 06:05] LABS: Path Review Blood Smear Sent to Pathologist
[2024-02-22 06:12] LABS: Alanine Aminotransferase 42 U/L (10-49); Albumin, Serum 4.4 gm/dL (3.5-5.0); Albumin/Globulin Ratio 1.5 (1.2-2.2); Alkaline Phosphatase 71 U/L (46-116); Anion Gap 8 (7-16); Aspartate Amino Transferase 28 U/L (0-34); BUN/Creatinine Ratio 7 Ratio (12-20); Bilirubin,Total 1.6 mg/dL (0.3-1.2); Blood Urea Nitrogen 6 mg/dL (9-23); Calcium 9.7 mg/dL (8.3-10.6); Calcium (Corrected) 9.7 mg/dL (8.5-10.1); Carbon Dioxide 24.7 mMol/L (20.0-31.0); Cardiac Risk Estimate 4.6 RATIO (4.0-6.7); Chloride 105 mMol/L (98-107); Cholesterol 195 mg/dL (132-200); Creatinine (Component) 0.9 mg/dL (0.6-1.3); Estimated Creatinine Clearance 90.4 mL/min (>60); Globulin 2.9 gm/dL (2.3-3.5); Glucose 92 mg/dL (74-106); HDL Cholesterol 42 mg/dL (40-60); LDL Cholesterol,Calculated 123 mg/dL (0-130); Magnesium 2.2 mg/dL (1.6-2.6); Osmolality,Calculated 273 (275-295); Phosphorous 3.4 mg/dL (2.4-5.1); Potassium 3.6 mMol/L (3.4-5.1); Sodium 138 mMol/L (136-145); Thyroid Stimulating Hormone 4.26 uIU/mL (0.55-4.78); Total Protein 7.3 gm/dL (5.7-8.2); Triglycerides 151 mg/dL (30-150); eGFR > 60 See Note
[2024-02-22 06:52] LABS: Glucose Estimated Average 103 mg/dL (80-131); Hemoglobin A1C 5.2 % Hgb (4.8-6.0)
[2024-02-22 07:06] LABS: INR 1.1 (0.9-1.3); Partial Thromboplastin Time 29.2 Seconds (22.0-36.0)
[2024-02-22] MEDS: PANTOPRAZOLE 40 MG TABLET PO (09:53)
[2024-02-22] MEDS: SENNA TABLET 1 TAB PO (09:53)
[2024-02-22] MEDS: Aspirin 325 MG TABLET PO (09:53)
[2024-02-22] MEDS: POTASSIUM CHLORIDE 20 mEq TABCR 40 MEQ PO (10:09)
[2024-02-22] MEDS: THIAMINE 100 MG TABLET PO ×2 (10:10→20:05)
[2024-02-22] MEDS: FOLIC ACID 1 MG TABLET PO ×2 (10:10→20:05)
--- NOTE | 2024-02-22 10:59 | XR_ITS ---
Examination: Abdomen sonogram, Limited Date and time of exam: February 22, 2024 1138 hrs. Indications: Elevated bilirubin on laboratory examination today Technique: Real-time aaron scale transabdominal sonographic images of the upper abdomen obtained. Findings: Gallbladder sludge No gallstones Normal gallbladder wall Normal common bile duct 0.3 cm Pancreatic head 2.2 cm Liver 13.4 cm right lobe millimeter lesion likely hemangioma Normal hepatopedal portal venous flow Patent IVC Impression: Gallbladder sludge Negative for cholelithiasis, negative for cholecystitis Normal common bile duct
--- NOTE | 2024-02-22 11:45 | ESPR_ITS ---
<Statement entered by Bhavana Olson MD - 02/22/24 21:42> I discussed with and supervised the technical support internship physician who took care of this patient. I personally saw and examined the patient and discussed the assessment and plan with the entire medicine team, including my attending , I agree with most of the assessment and plan as documented below Bhavana Olson M.D. PGY-2 Documentation for date of: 02/22/24 Subjective Subjective Interval history: 02/22/2024: Patient is an overnight admit, 43-year-old male with no significant past medical history; however, has not seen a doctor in over 9 years. Patient presented with left-sided weakness/numbness of upper and lower extremities; in the ED was found to be in hypertensive emergency and stroke alert was initiated. Patient was admitted after teleneurology recommended MRI brain to rule out stroke. Overnight during admission, patient developed SVT which was treated with x 1 dose of labetalol 10 mg IV. This morning, patient seen and examined in hospital bed back to his baseline; denies having any neurologic deficits and on exam muscle strength is 5 out of 5 bilaterally along with sensations being intact. Patient has a pending MRI brain along with TTE with bubble study. Patient also states that he drinks alcohol regularly; as a result, will start patient on CIWA protocol. Patient appeared to be slightly restless, asked if he would like a nicotine patch as he has active [id number] smoking history, but he denied. Patient also has polycythemia with an elevated hemoglobin and hematocrit; likely secondary to smoking but cannot rule out DIETER as patient states that he does snore. In the setting of alcohol use disorder, and elevated T bilirubin ordered a liver ultrasound;will follow-up with results. Exam Vital Signs Temp Pulse Resp BP Pulse Ox O2 Del Method 97.5 F 78 15 138/95 H 98 Room Air 02/22/24 08:00 02/22/24 08:00 02/22/24 08:00 02/22/24 08:00 02/22/24 08:00 02/22/24 08:00 Narrative Exam Physical Exam: GENERAL: Awake, answering questions appropriately, appears stated age, appears slightly restless HEENT: NC/AT. Moist mucosa. PERRLA/EOMI. CARDIO: Heart RRR, no obvious murmurs, no JVD. PULM: No coughing or visible SOB. Lungs CTA B/L. GI: Abdomen soft, NT/ND, +BS. SKIN/MSK/EXT: No wounds/discoloration/rashes/edema/amputations. +Pedal pulses present B/L. NEURO: Oriented x3, cranial nerves II to XII intact, fitness sales consultant strength 5/5, Moves extremities x4, no focal neurologic deficits noted Objective Labs 02/22/24 04:41 02/22/24 04:41 Labs: Laboratory Results - last 24 hr 02/21/24 02/21/24 02/21/24 17:55 18:38 18:40 WBC 5.7 RBC 6.68 H Hgb 21.2 H* Hct 59.9 H MCV 90 MCH 31.7 MCHC 35.4 RDW Std Deviation 41.1 Plt Count 222 Neut % (Auto) 61 Lymph % (Auto) 30 [place] % (Auto) 6 Eos % (Auto) 2 Baso % (Auto) 0 Neut # (Auto) 3.5 Lymph # (Auto) 1.7 [place] # (Auto) 0.4 Eos # (Auto) 0.1 Baso # (Auto) 0.0 Immature Gran # (Auto) 0.01 H Absolute Nucleated RBC 0.00 Immature Gran % 0 Nucleated RBC % 0 Smear Path Review PT 12.7 H INR 1.2 APTT 30.3 Sodium 136 Potassium 3.8 Chloride 103 Carbon Dioxide 25.7 Anion Gap 7 BUN 8 L Creatinine 1.1 Estim Creat Clear Calc 74.0 eGFR > 60 BUN/Creatinine Ratio 7 L Glucose [address] Glu mg/dL Hemoglobin A1c Calculated Osmolality 271 L Calcium 10.1 Corrected Calcium 10.1 Phosphorus Magnesium 1.9 Total Bilirubin 1.2 AST 37 H ALT 50 H Alkaline Phosphatase 78 Troponin I < 0.002 B-Natriuretic Peptide < 20 Total Protein 7.9 Albumin 4.9 Globulin 3.0 Albumin/Globulin Ratio 1.6 Triglycerides Cholesterol LDL Cholesterol, Calc HDL Cholesterol Cholesterol/HDL Ratio TSH Ur Collection Type Clean Catch Urine Color Colorless A Urine Clarity Clear Urine pH 6.5 Ur Specific [place] 1.017 Urine Protein Negative Urine Glucose (UA) Negative Urine Ketones Negative Urine Blood Negative Urine Nitrite Negative Urine Bilirubin Negative Urine Urobilinogen (Auto) Negative Ur Leukocyte Esterase Negative Urine RBC < 1 Urine WBC 0 Ur Squamous Epith Cells 0 Urine Bacteria None Urine Opiates Screen Negative Urine Fentanyl Screen Negative Ur Barbiturates Screen Negative U Amphetamin/Meth Scrn Negative U Benzodiazepines Scrn Negative U Cocaine Metab Screen Negative U Marijuana (THC) Screen Negative Ethyl Alcohol < 3.0 02/22/24 04:41 WBC 7.7 RBC 6.26 H Hgb 19.7 H* Hct 57.6 H MCV 92 MCH 31.5 MCHC 34.2 RDW Std Deviation 42.5 Plt Count 223 Neut % (Auto) 66 Lymph % (Auto) 24 [place] % (Auto) 8 Eos % (Auto) 1 Baso % (Auto) 0 Neut # (Auto) 5.1 Lymph # (Auto) 1.8 [place] # (Auto) 0.6 Eos # (Auto) 0.1 Baso # (Auto) 0.0 Immature Gran # (Auto) 0.02 H Absolute Nucleated RBC 0.00 Immature Gran % 0 Nucleated RBC % 0 Smear Path Review Sent to Pathologist PT 12.0 INR 1.1 APTT 29.2 Sodium 138 Potassium 3.6 Chloride 105 Carbon Dioxide 24.7 Anion Gap 8 BUN 6 L Creatinine 0.9 Estim Creat Clear Calc 90.4 eGFR > 60 BUN/Creatinine Ratio 7 L Glucose [address] Glu mg/dL 103 Hemoglobin A1c 5.2 Calculated Osmolality 273 L Calcium 9.7 Corrected Calcium 9.7 Phosphorus 3.4 Magnesium 2.2 Total Bilirubin 1.6 H AST 28 ALT 42 Alkaline Phosphatase 71 Troponin I B-Natriuretic Peptide Total Protein 7.3 Albumin 4.4 D Globulin 2.9 Albumin/Globulin Ratio 1.5 Triglycerides 151 H Cholesterol 195 LDL Cholesterol, Calc 123 HDL Cholesterol 42 Cholesterol/HDL Ratio 4.6 TSH 4.26 Ur Collection Type Urine Color Urine Clarity Urine pH Ur Specific [place] Urine Protein Urine Glucose (UA) Urine Ketones Urine Blood Urine Nitrite Urine Bilirubin Urine Urobilinogen (Auto) Ur Leukocyte Esterase Urine RBC Urine WBC Ur Squamous Epith Cells Urine Bacteria Urine Opiates Screen Urine Fentanyl Screen Ur Barbiturates Screen U Amphetamin/Meth Scrn U Benzodiazepines Scrn U Cocaine Metab Screen U Marijuana (THC) Screen Ethyl Alcohol Quality Measures Quality Measures VTE prophylaxis Assessment & Plan Assessment Current Active Medications: Generic Name Dose Route Start Last Admin Trade Name Freq PRN Reason Stop Dose Admin Acetaminophen 650 mg 02/21/24 20:29 Acetaminophen 325 Mg Tablet PO 03/22/24 20:28 Q6H PRN PAIN OR FEVER > 101 Aspirin 325 mg 02/22/24 09:00 02/22/24 09:53 Aspirin 325 Mg Tablet PO 03/23/24 08:59 325 mg QDAY MINO Administration Atorvastatin Calcium 40 mg 02/21/24 21:00 02/21/24 20:52 Atorvastatin Calcium 20 Mg Tablet PO 03/22/24 20:59 40 mg HS MINO Administration Folic Acid 1 mg 02/22/24 10:05 02/22/24 10:10 Folic Acid 1 Mg Tablet PO 02/27/24 10:04 1 mg BID MINO Administration Labetalol HCl 10 mg 02/21/24 20:34 02/21/24 21:51 Labetalol Inj 5 Mg/Ml Vial 20 Ml IVP 03/22/24 20:44 10 mg Q6H PRN Administration hypertension Lorazepam 0.5 mg 02/22/24 09:42 Lorazepam 0.5 Mg Tablet PO 02/27/24 09:41 Q4HR PRN CIWA Score 2-6 Lorazepam 1 mg 02/22/24 09:42 Lorazepam 0.5 Mg Tablet PO 02/27/24 09:41 Q4HR PRN CIWA SCORE 7-11 Lorazepam 2 mg 02/22/24 09:42 Lorazepam 0.5 Mg Tablet PO 02/27/24 09:41 Q4HR PRN CIWA SCORE 12-15 Ondansetron HCl 4 mg 02/21/24 20:29 Ondansetron Inj 2 Mg/Ml Inj 2 Ml IV 03/22/24 20:28 Q6H PRN NAUSEA OR VOMITING Protocol Pantoprazole Sodium 40 mg 02/22/24 09:00 02/22/24 09:53 Pantoprazole 40 Mg Tablet PO 03/23/24 08:59 40 mg QDAY MINO Administration Sennosides 1 tab 02/22/24 09:00 02/22/24 09:53 Senna Tablet PO 03/23/24 08:59 1 tab QDAY MINO Administration Protocol Thiamine HCl 100 mg 02/22/24 10:05 02/22/24 10:10 Thiamine 100 Mg Tablet PO 02/27/24 10:04 100 mg BID MINO Administration Plan 43-year-old male with past medical history of use disorder, smoking history ([id number]), possible hypertension not on any medication was admitted for CVA/TIA rule out and hypertensive urgency treatment and management. #Acute left-sided weakness, resolved #Possible TIA versus hypertensive emergency #Ruling out stroke/CVA Patient who presented with left-sided numbness/weakness which started at 1 PM on 02/20 Patient presented with blood pressure with systolics in the 200s In ED patient was given 20 of IV push hydralazine, and was placed on nicardipine drip CT head was done which was negative for acute hemorrhage, mass effect or midline shift, showed multiple small old appearing basal ganglia infarcts CTA head/neck was negative for any LVO Activate stroke protocol order set NIHSS score 1. Patient is not a candidate for tPA, LWK above 4.5 hours Passed bedside nursing swallow Plan: Neurology consulted, Dr. Olson, appreciate recommendations MRI w/wo contrast Echo with bubble study ordered Neurochecks every 4 HOB elevation 30 degree Continue Aspirin and atorvastatin Temperature control Euglycemia state Physical therapy evaluation. #Alcohol use disorder #Hyperbilirubinemia 5?points Child Class A Life Expectancy : 15-20 years Abdominal surgery gomez- operative mortality: 10% 9?points MELD Score (2016)* 1.9% Estimated 3-Month Mortality Patient states he drinks 5-6 beers a day Last drink was day prior to admission Patient appears slightly listless and restless on examination but denies having any diaphoresis/visual or auditory hallucinations/tongue fasciculations or tremors currently Plan: Ultrasound liver ordered CIWA protocol in place Folic and Thiamine supplementation #Possible hypertension? Patient does not follow-up outpatient with PCP Presented with hypertensive emergency as stated above Plan: Will consider starting an PETER/ARB on 02/22 if blood pressure remains elevated Will continue to monitor, telemetry #Polycythemia vera #History of Smoking Tobacco Patient is active smoker (>20pack year hx), denies using anabolic steroids, states that his mentions he snores Elevated HxH, dizziness, headache , hyperviscosity Plan: Patient could benefit from sleep study outpatient Blood smear and Jak2 mutation send out lab Patient denied wanting Nicotine patch at this time Hospital Management: Lines: PIV Bowel: Senna as needed Diet: Regular, passed bedside swallow eval GI prophylaxis: Not required DVT prophylaxis: Patient ambulating Dispo: Pending stroke workup; telemetry Code: Full Patient seen and examined with attending Dr. Torrez and senior resident Dr. Wesley Dempsey, PGY-1 Attending Provider Attestation/Addendum I have discussed and was present for the essential components of the history, physical examination, diagnosis, and treatment plan with the resident. I agree with the patient's care as documented by the resident and amended herein by me. Shubham Torrez DO. Patient seen and evaluated this AM. MRI brain pending, patient remains on CIWA, liver ultrasound performed today with no concerning findings, echo also pending. Will continue permissive hypertension through tomorrow Although this document has been carefully reviewed, there may still be some phonetic and other typographical errors. These errors are purely grammatical due to imperfections in the software program and should not be construed in any way to compromise the substance of the patient's medical care during this visit.
[2024-02-22] MEDS: ATORVASTATIN CALCIUM 20 MG TABLET 40 MG PO (20:04)
--- NOTE | 2024-02-22 20:20 | PC.NURSE ---
DR. ADDIE REGALADO MADE AWARE VIA PHONE OF PATIENT EXPERIENCING CONTINUED DIZZINESS. PT REQUESTING FOR MEDICATION TO HELP WITH SYMPTOMS. MD STATES HE WILL COME AND ASSESS PATIENT. MD AT BEDSIDE, PT STATING THAT HE IS NOT EXHIBITING ANYMORE DIZZINESS. NO FURTHER INTERVENTIONS AT THIS TIME.
--- NOTE | 2024-02-22 22:38 | PC.NURSE ---
Patient with c/o of worsening numbness traveling to left arm, up to shoulder, left torso, left neck (prior assessment, stated to have numbness to right face, bilateral hands, bilateral legs, worse of left leg than right leg). RUST 1. Dr. Arias on floor, assessing patient. BP at 183/110, HR 68, RR 19, 96% on RA, 0/[address] head w/o contrast placed by . Pt transported via wheelchair to CT Head. Back to bed at 2300, at bedside.
--- NOTE | 2024-02-22 22:45 | XR_ITS ---
Examination: CT brain head without contrast. 2-D sagittal coronal reconstructions Date and time of exam:February 22, 2024 10:55 PM Comparison February 21, 2024 Indications: New onset paresthesias today, stroke alert, onset left-sided body weakness beginning yesterday CTDI: vol (mGy):21 DLP: (mGycm):998 Technique: Multiple CT axial sections of the brain have been obtained, 5 mm slice thickness. Contrast has not been administered. 2-D sagittal, coronal reconstructions have been obtained Low dose protocols were performed. One or more of the following dose reduction techniques were used; automated exposure control, adjustment of the mA and/or KV according to patient size, use of iterative reconstruction technique. Findings: No significant ventricular enlargement. Bilateral old basal ganglia infarcts again depicted Intra-axial or extra-axial hemorrhage density is not seen. No mass effect or midline shift Basal cisterns are not remarkable. Fourth ventricle is midline. Cranial vault intact. Impression: Negative for acute hemorrhage, mass effect or midline shift Brain MRI follow-up would best assess for acute ischemic change
--- NOTE | 2024-02-22 23:24 | ESPR_ITS ---
Documentation for date of: 02/22/24 Subjective Subjective Interval history: Patient is in telemetry. Continues to have left leg monoparesis and paresthesia but significantly improved since admission. Exam - Neurology Vital Signs Temp Pulse Resp BP Pulse Ox O2 Del Method 97.3 F 68 19 183/110 H 96 Room Air 02/22/24 20:00 02/22/24 22:37 02/22/24 22:37 02/22/24 22:37 02/22/24 22:37 02/22/24 22:37 Narrative Exam GENERAL APPEARANCE: Well hydrated, well-nourished in no acute distress. HEENT: Normocephalic, atraumatic, extraocular movements intact. Pupils: Equal reacting to light and accommodation NECK: Supple, no JVD or bruits. CARDIOVASULAR: Heart: S1, S2 heard, regular without S3-S4 or murmur no rubs or gallops. LUNGS/CHEST: Clear to auscultation bilaterally. No rails, rhonchi, or wheezing. Normal inspection. ABDOMEN: Soft, nontender, with normal bowel sounds. No pulsatile masses. No rebound, rigidity, or guarding. Normal inspection and palpation. EXTREMITIES: Normal inspection and palpation. No edema, clubbing or cyanosis. SKIN: Warm and dry without rashes. Normal inspection. MUSCULOSKELETAL: No cervical, thoracic, lumbar or midline bony tenderness. Normal inspection. NEURO: Alert, awake and oriented x3. Cranial nerves: II through XII grossly intact. Speech and language: Normal with no dysarthria or dysphasia. Motor system: Tone and bulk: Normal: Strength: 5 out of 5 in all 4 extremities; No pronator drift noted. Deep tendon reflexes: 2+ bilaterally symmetrical. Plantar reflex: Downgoing bilaterally. Sensory system: Intact to all modalities of sensation bilaterally. Coordination: Intact to [id number] and ylrm-uiph-dvob test bilaterally. No ataxia, no dysmetria, or dysdiadochokinesia noted. No intention tremors noted. Gait: Walked with a walker. No signs of meningeal irritation noted. PSYCHIATRIC: Normal mood and affect. Objective Labs 02/24/24 05:42 02/24/24 05:42 Labs: Laboratory Results - last 24 hr 02/22/24 04:41 WBC 7.7 RBC 6.26 H Hgb 19.7 H* Hct 57.6 H MCV 92 MCH 31.5 MCHC 34.2 RDW Std Deviation 42.5 Plt Count 223 Neut % (Auto) 66 Lymph % (Auto) 24 [place] % (Auto) 8 Eos % (Auto) 1 Baso % (Auto) 0 Neut # (Auto) 5.1 Lymph # (Auto) 1.8 [place] # (Auto) 0.6 Eos # (Auto) 0.1 Baso # (Auto) 0.0 Immature Gran # (Auto) 0.02 H Absolute Nucleated RBC 0.00 Immature Gran % 0 Nucleated RBC % 0 Smear Path Review Sent to Pathologist PT 12.0 INR 1.1 APTT 29.2 Sodium 138 Potassium 3.6 Chloride 105 Carbon Dioxide 24.7 Anion Gap 8 BUN 6 L Creatinine 0.9 Estim Creat Clear Calc 90.4 eGFR > 60 BUN/Creatinine Ratio 7 L Glucose [address] Glu mg/dL 103 Hemoglobin A1c 5.2 Calculated Osmolality 273 L Calcium 9.7 Corrected Calcium 9.7 Phosphorus 3.4 Magnesium 2.2 Total Bilirubin 1.6 H AST 28 ALT 42 Alkaline Phosphatase 71 Total Protein 7.3 Albumin 4.4 D Globulin 2.9 Albumin/Globulin Ratio 1.5 Triglycerides 151 H Cholesterol 195 LDL Cholesterol, Calc 123 HDL Cholesterol 42 Cholesterol/HDL Ratio 4.6 TSH 4.26 Assessment & Plan Assessment and plan (1) Acute CVA (cerebrovascular accident): Status: Acute Assessment and plan: With left leg monoparesis and paresthesia MRI brain showed right thalamic infarct Echocardiogram: Taken, report pending Follow-up with hypercoagulopathy workup, Continue with aspirin 81 mg and Plavix 75 mg for prophylaxis along with high intensity statin (2) Hypertensive urgency: Status: Resolved Assessment and plan: Continue with aggressive blood pressure management (3) Polycythemia: Status: Acute Assessment and plan: Needs hematology evaluation for periodic phlebotomy
[2024-02-23] VITALS (12 sets, daily range): BP systolic 131–173; BP diastolic 88–122; PULSE 60–99; RESP 14–96; TEMP 36.1–36.9; O2SAT 94–97; BMI 23.4
--- NOTE | 2024-02-23 | XR_ITS ---
Examination: MRI of brain without intravenous contrast. MRI brain with intravenous contrast. Date and time of exam:February 23, 2024 1205 hrs. Indications: Dizziness difficulty walking ataxia beginning February 21, 2024 Technique: Multiple axial and sagittal images of the brain to been obtained. Siemens high-resolution 1.52 Sarika short bore scanner utilized. Sagittal sections, T1 weighted images, TR 500, TE 14, are performed. Axial sections proton-density and T2-weighted images have been obtained. Inversion recovery axial images, TR 9260, TE 111, TR 2500. Diffusion weighted images, axial sections, TR 4800, TE 128, B value 1000. Axial sections, ADC map, TR 4800, TE 128. Axial and coronal images were also obtained post 12 cc gadolinium administered intravenously. Findings:: Enlargement of the sella turcica is not present. The optic chiasm and infundibular stalk are not remarkable. There is no localized enlargement of the medulla or robert. Fourth ventricle and cerebellar tonsils appear normal in position. No subacute area of hemorrhage density is seen. Fourth ventricle is midline. Mass in the cerebellopontine angle region is not evident. 7th and 8th nerve complexes exhibit symmetry Globes are symmetrical Orbital musculature including medial lateral rectus muscles do not exhibit abnormality Increased white matter signal is prominent including old basal ganglia infarcts Effacement of the cortical sulcal markings is not identified. Mass effect upon the ventricular system is not identified. Diffusion-weighted images demonstrate acute focus restricted diffusion right thalamus Contrast images demonstrate no abnormal enhancement Impression: 20 mm acute infarct right thalamus
[2024-02-23 05:57] LABS: Basophils % (Auto) 1 % (0-2.5); Eosinophils # (Auto) 0.2 Thou/mm3 (0.0-0.5); Eosinophils % (Auto) 3 % (0-10); Hematocrit 57.9 % (41.0-53.0); Hemoglobin 19.7 g/dL (13.5-16.0); Immature Granulocytes % (Auto) 0 % (0-0); Immature Granulocytes Auto 0.01 Thou/mm3 (0.00-0.00); Lymphocytes # (Auto) 1.8 Thou/mm3 (1.0-4.8); Lymphocytes % (Auto) 27 % (10-50); Mean Corpuscular Hemoglobin 31.7 pg (25.0-35.0); Mean Corpuscular Volume 93 fL (80-100); Monocytes # (Auto) 0.6 Thou/mm3 (0.0-0.8); Monocytes % (Auto) 8 % (0-12); Neutrophils # (Auto) 4.2 Thou/mm3 (1.8-7.7); Neutrophils % (Auto) 62 % (37-80); Nucleated Red Blood Cell % 0 /100 WBC (0); Platelet Count 220 Thou/mm3 (140-440); RDW Standard Deviation 42.9 fL (35.1-43.9); Red Blood Count 6.21 Miln/mm3 (4.50-5.90); White Blood Count 6.9 Thou/mm3 (3.8-10.6)
[2024-02-23 06:31] LABS: Alanine Aminotransferase 41 U/L (10-49); Albumin, Serum 4.8 gm/dL (3.5-5.0); Albumin/Globulin Ratio 1.8 (1.2-2.2); Alkaline Phosphatase 70 U/L (46-116); Anion Gap 9 (7-16); Aspartate Amino Transferase 31 U/L (0-34); BUN/Creatinine Ratio 9 Ratio (12-20); Bilirubin,Total 1.9 mg/dL (0.3-1.2); Blood Urea Nitrogen 10 mg/dL (9-23); Chloride 102 mMol/L (98-107); Creatinine (Component) 1.1 mg/dL (0.6-1.3); Globulin 2.7 gm/dL (2.3-3.5); Glucose 86 mg/dL (74-106); Osmolality,Calculated 273 (275-295); Potassium 4.1 mMol/L (3.4-5.1); Sodium 138 mMol/L (136-145); Total Protein 7.5 gm/dL (5.7-8.2); eGFR > 60 See Note
--- NOTE | 2024-02-23 07:07 | ESPR_ITS ---
Documentation for date of: 02/23/24 Subjective Subjective Interval history: 02/23/2024; patient was seen and examined by bedside with sleeping in room, overnight patient complained of sudden dizziness along with continuation of numbness for which head CT was ordered, CT was negative for acute changes but noted for chronic bilateral basal ganglia infarcts, patient this a.m. continues to have same symptoms since admission with some increase in his dizziness and left facial /upper and lower extremity numbness. No motor function deficit noted, vitals noted for elevated BP of 150/90, labs unchanged except for increase in T.bili and LDL 123, biliary US was negative for cholelithiasis/cholecystitis. Brain MRI showed 20mm right thalamic infarct, patient currently pending echocardiogram, JAK2 mutation, erythropoetin level, and peripheral blood smear, continue patient on aspirin 325 mg and atorvastatin daily per neuro recommendations along with [facility] protocol. Exam Vital Signs Temp Pulse Resp BP Pulse Ox O2 Del Method 97.1 F 65 15 151/88 H 97 Room Air 02/23/24 04:00 02/23/24 04:00 02/23/24 04:00 02/23/24 04:00 02/23/24 04:00 02/23/24 04:00 Narrative Exam General: well developed, well nourished, laying in bed, not in acute distress, answering questions appropriately, making appropriate eye contact HEENT: Normocephalic, atraumatic, EOMI, PERRLA, moist oral mucosa, normal dentition. Cardiac: Regular rate and rhythm, normal S1/S2, no murmurs. Lungs: Clear to auscultation with no wheezings or crackles, normal respiratory effort and rate. Abdomen: Soft, nontender, nondistended, positive bowel sounds in all quadrants. No guarding or rebound tenderness. Neuro: Alert and oriented to name and date of and place. CN II- XII intact, no focal motor deficit noted, BUE/BLE motor function and sensation intact and equal, patient continues to report non-resolving dizziness. Extremities: Normal to inspection, no edema, no cyanosis, motor strength intact in all extremities but patient continues to report tingling sensation. Psych: Normal mood and affect. Objective Labs 02/24/24 05:42 02/24/24 05:42 Labs: Laboratory Results - last 24 hr 02/22/24 02/23/24 04:41 04:59 WBC 6.9 RBC 6.21 H Hgb 19.7 H* Hct 57.9 H MCV 93 MCH 31.7 MCHC 34.0 RDW Std Deviation 42.9 Plt Count 220 Neut % (Auto) 62 Lymph % (Auto) 27 [place] % (Auto) 8 Eos % (Auto) 3 Baso % (Auto) 1 Neut # (Auto) 4.2 Lymph # (Auto) 1.8 [place] # (Auto) 0.6 Eos # (Auto) 0.2 Baso # (Auto) 0.0 Immature Gran # (Auto) 0.01 H Absolute Nucleated RBC 0.00 Immature Gran % 0 Nucleated RBC % 0 Sodium 138 Potassium 3.6 Chloride 105 Carbon Dioxide 24.7 Anion Gap 8 BUN 6 L Creatinine 0.9 Estim Creat Clear Calc 90.4 eGFR > 60 BUN/Creatinine Ratio 7 L Glucose 92 Calculated Osmolality 273 L Calcium 9.7 Corrected Calcium 9.7 Phosphorus 3.4 Magnesium 2.2 Total Bilirubin 1.6 H AST 28 ALT 42 Alkaline Phosphatase 71 Total Protein 7.3 Albumin 4.4 D Globulin 2.9 Albumin/Globulin Ratio 1.5 Triglycerides 151 H Cholesterol 195 LDL Cholesterol, Calc 123 HDL Cholesterol 42 Cholesterol/HDL Ratio 4.6 TSH 4.26 Quality Measures Quality Measures VTE prophylaxis Assessment & Plan Assessment Current Active Medications: Generic Name Dose Route Start Last Admin Trade Name Freq PRN Reason Stop Dose Admin Acetaminophen 650 mg 02/21/24 20:29 Acetaminophen 325 Mg Tablet PO 03/22/24 20:28 Q6H PRN PAIN OR FEVER > 101 Aspirin 325 mg 02/22/24 09:00 02/22/24 09:53 Aspirin 325 Mg Tablet PO 03/23/24 08:59 325 mg QDAY MINO Administration Atorvastatin Calcium 40 mg 02/21/24 21:00 02/22/24 20:04 Atorvastatin Calcium 20 Mg Tablet PO 03/22/24 20:59 40 mg HS MINO Administration Folic Acid 1 mg 02/22/24 10:05 02/22/24 20:05 Folic Acid 1 Mg Tablet PO 02/27/24 10:04 1 mg BID MINO Administration Labetalol HCl 10 mg 02/21/24 20:34 02/21/24 21:51 Labetalol Inj 5 Mg/Ml Vial 20 Ml IVP 03/22/24 20:44 10 mg Q6H PRN Administration hypertension Lorazepam 0.5 mg 02/22/24 09:42 Lorazepam 0.5 Mg Tablet PO 02/27/24 09:41 Q4HR PRN CIWA Score 2-6 Lorazepam 1 mg 02/22/24 09:42 Lorazepam 0.5 Mg Tablet PO 02/27/24 09:41 Q4HR PRN CIWA SCORE 7-11 Lorazepam 2 mg 02/22/24 09:42 Lorazepam 0.5 Mg Tablet PO 02/27/24 09:41 Q4HR PRN CIWA SCORE 12-15 Ondansetron HCl 4 mg 02/21/24 20:29 Ondansetron Inj 2 Mg/Ml Inj 2 Ml IV 03/22/24 20:28 Q6H PRN NAUSEA OR VOMITING Protocol Pantoprazole Sodium 40 mg 02/22/24 09:00 02/22/24 09:53 Pantoprazole 40 Mg Tablet PO 03/23/24 08:59 40 mg QDAY MINO Administration Sennosides 1 tab 02/22/24 09:00 02/22/24 09:53 Senna Tablet PO 03/23/24 08:59 1 tab QDAY MINO Administration Protocol Thiamine HCl 100 mg 02/22/24 10:05 02/22/24 20:05 Thiamine 100 Mg Tablet PO 02/27/24 10:04 100 mg BID MINO Administration Plan 43-year-old male with past medical history of use disorder, smoking history ([id number]), possible hypertension not on any medication was admitted for CVA/TIA rule out and hypertensive urgency treatment and management. 02/23/2024; patient was seen and examined by bedside with sleeping in room, overnight patient complained of sudden dizziness along with continuation of numbness for which head CT was ordered, CT was negative for acute changes but noted for chronic bilateral basal ganglia infarcts, patient this a.m. continues to have same symptoms since admission with some increase in his dizziness and left facial /upper and lower extremity numbness. No motor function deficit noted, vitals noted for elevated BP of 150/90, labs unchanged except for increase in T.bili and LDL 123, biliary US was negative for cholelithiasis/cholecystitis. Brain MRI showed 20mm right thalamic infarct, patient currently pending echocardiogram, JAK2 mutation, erythropoetin level, protein C&S activity, factor V mutation, and peripheral blood smear, continue patient on aspirin 325 mg and atorvastatin daily per neuro recommendations along with CIWA protocol. #Right thalamic infarct #Dizziness. #Left upper and lower extremities numbness. #Hypertensive emergency #Ruling out stroke/CVA Patient who presented with left-sided numbness/weakness which started at 1 PM on 02/20 Patient presented with blood pressure with systolics in the 200s In ED patient was given 20 of IV push hydralazine, and was placed on nicardipine drip CT head was done which was negative for acute hemorrhage, mass effect or midline shift, showed multiple small old appearing basal ganglia infarcts CTA head/neck was negative for any LVO Activate stroke protocol order set NIHSS score 1. Patient is not a candidate for tPA, LWK above 4.5 hours Passed bedside nursing swallow Plan: Neurology consulted, Dr. Olson, appreciate recommendations MRI w/wo contrast Echo with bubble study ordered Neurochecks every 4 HOB elevation 30 degree Continue Aspirin and atorvastatin Temperature control Euglycemia state Physical therapy evaluation. #Alcohol use disorder #Hyperbilirubinemia 5?points Child Class A Life Expectancy : 15-20 years Abdominal surgery gomez- operative mortality: 10% 9?points MELD Score (2016)* 1.9% Estimated 3-Month Mortality Patient states he drinks 5-6 beers a day Last drink was day prior to admission Patient appears slightly listless and restless on examination but denies having any diaphoresis/visual or auditory hallucinations/tongue fasciculations or tremors currently Plan: Ultrasound liver ordered CIWA protocol in place Folic and Thiamine supplementation #HTN Patient does not follow-up outpatient with PCP Presented with hypertensive emergency as stated above Plan: Start patient on PETER/ARB on 02/22 if blood pressure remains elevated Will continue to monitor, telemetry #Polycythemia #History of Smoking Tobacco Patient is active smoker (>20pack year hx), denies using anabolic steroids, states that his mentions he snores Elevated HxH, dizziness, headache , hyperviscosity Plan: Patient could benefit from sleep study outpatient Blood smear and Jak2 mutation send out lab F/U erythropoetin level. Patient denied wanting Nicotine patch at this time Hospital Management: Lines: PIV Bowel: Senna as needed Diet: Regular, passed bedside swallow eval GI prophylaxis: Not required DVT prophylaxis: Patient ambulating Dispo: Pending stroke workup; telemetry Code: Full Plan of care discussed with attending Dr. Lore Robledo, PGY-3 Attending Provider Attestation/Addendum I have discussed and was present for the essential components of the history, physical examination, diagnosis, and treatment plan with the resident. I agree with the patient's care as documented by the resident and amended herein by me. Shubham Torrez, DO. Although this document has been carefully reviewed, there may still be some phonetic and other typographical errors. These errors are purely grammatical due to imperfections in the software program and should not be construed in any way to compromise the substance of the patient's medical care during this visit.
--- NOTE | 2024-02-23 08:14 | XR_ITS ---
Examination: Retroperitoneal ultrasound, complete Technique: Multiple high resolution grayscale images of the retroperitoneum obtained, including kidneys and bladder. Exam date and time:February 23, 2024 0959 hrs. Indications: Diagnosis secondary erythrocytosis Findings: Right kidney 10.0 x 4.5 0.0 cm renal cortex 1.3 Left kidney 10.5 x 5.6 x 4.9 cm cortex 1.8 cm No hydronephrosis or renal calculi No bladder mass or bladder calculi Bladder prevoid volume 131 cc Prostate 3.9 x 3.1 x 3.9 cm no prostate nodules Impression: No hydronephrosis or renal calculi
[2024-02-23] MEDS: THIAMINE 100 MG TABLET PO ×2 (08:17→20:24)
[2024-02-23] MEDS: PANTOPRAZOLE 40 MG TABLET PO (08:17)
[2024-02-23] MEDS: Aspirin 325 MG TABLET PO (08:17)
[2024-02-23] MEDS: SENNA TABLET 1 TAB PO (08:17)
[2024-02-23] MEDS: FOLIC ACID 1 MG TABLET PO ×2 (08:18→20:24)
[2024-02-23] MEDS: LABETALOL INJ 5 MG/ML VIAL 20 ML 10 MG IVP (08:19)
--- NOTE | 2024-02-23 09:06 | PC.SS ---
rounding note: Patient pending MRI. If cleared, may d/c home today
[2024-02-23] MEDS: hydrALAZINE INJ 20 MG/ML VIAL IV (11:42)
--- NOTE | 2024-02-23 14:54 | PC.SS ---
Patient Diana Peter is a 43 Year old male admitted for CVA/TIA. SS spoke to patients , Araceli Peter who reports is his surrogate decision maker [phone]. Patient lives at home with her. Prior to admission patient did not utilize any source of DME to assist with ambulation. Patient's PCP is Gerson Parks. Pharmacy of choice is [facility]. At time of discharge patient will return home. NExt of kin: , Araceli Peter Discharge Plan: home PCP: Gerson Parks
[2024-02-23 15:20] LABS: Path Review Blood Smear Sent to Pathologist
[2024-02-23 15:52] LABS: Vitamin B12 591 pg/mL (211-911)
[2024-02-23] MEDS: ATORVASTATIN CALCIUM 20 MG TABLET 80 MG PO (20:23)
--- NOTE | 2024-02-23 21:00 | PC.NURSE ---
Patient and asking about MRI and renal us that was completed. Bina PECK aware will go talk to patient.
--- NOTE | 2024-02-23 23:37 | PD.VPROG1 ---
Telemedicine visit statement This visit was conducted with the use of phone was obtained on 02/23/24. Documentation for date of: 02/23/24 Subjective Subjective Interval history: Patient is in telemetry. His left leg paresthesia and weakness are improving since admission. No new symptoms reported. Virtual exam Vital Signs Temp Pulse Resp BP Pulse Ox O2 Del Method 97.2 F 88 18 148/93 H 94 L Room Air 02/23/24 19:56 02/23/24 21:44 02/23/24 21:44 02/23/24 19:56 02/23/24 19:56 02/23/24 19:56 Objective Labs 02/24/24 05:42 02/24/24 05:42 Labs: Laboratory Results - last 24 hr 02/23/24 04:59 WBC 6.9 RBC 6.21 H Hgb 19.7 H* Hct 57.9 H MCV 93 MCH 31.7 MCHC 34.0 RDW Std Deviation 42.9 Plt Count 220 Neut % (Auto) 62 Lymph % (Auto) 27 [place] % (Auto) 8 Eos % (Auto) 3 Baso % (Auto) 1 Neut # (Auto) 4.2 Lymph # (Auto) 1.8 [place] # (Auto) 0.6 Eos # (Auto) 0.2 Baso # (Auto) 0.0 Immature Gran # (Auto) 0.01 H Absolute Nucleated RBC 0.00 Immature Gran % 0 Nucleated RBC % 0 Smear Path Review Sent to Pathologist Sodium 138 Potassium 4.1 D Chloride 102 Carbon Dioxide 27.0 Anion Gap 9 BUN 10 Creatinine 1.1 Estim Creat Clear Calc 74.0 eGFR > 60 BUN/Creatinine Ratio 9 L Glucose 86 Calculated Osmolality 273 L Calcium 10.0 Corrected Calcium 10.0 Total Bilirubin 1.9 H AST 31 ALT 41 Alkaline Phosphatase 70 Total Protein 7.5 Albumin 4.8 Globulin 2.7 Albumin/Globulin Ratio 1.8 Vitamin B12 591 Assessment & Plan Assessment (1) Acute CVA (cerebrovascular accident): Status: Acute Assessment and plan: With left leg monoparesis and paresthesia MRI brain showed right thalamic infarct Echocardiogram: Normal study He would need cardiology consult for transesophageal echocardiogram and extended Holter monitoring to evaluate for cardiac arrhythmias Follow-up with hypercoagulopathy workup, Continue with aspirin 81 mg and Plavix 75 mg for prophylaxis along with high intensity statin (2) Hypertensive urgency: Status: Resolved Assessment and plan: Continue with aggressive blood pressure management (3) Polycythemia: Status: Acute Assessment and plan: Needs hematology evaluation for periodic phlebotomy
[2024-02-24] VITALS (11 sets, daily range): BP systolic 122–160; BP diastolic 74–118; PULSE 69–101; RESP 12–97; TEMP 36.3–36.8; O2SAT 95–98; BMI 23.4
[2024-02-24 06:26] LABS: Basophils # (Auto) 0.1 Thou/mm3 (0.0-0.2); Basophils % (Auto) 1 % (0-2.5); Eosinophils # (Auto) 0.4 Thou/mm3 (0.0-0.5); Eosinophils % (Auto) 6 % (0-10); Hematocrit 56.8 % (41.0-53.0); Hemoglobin 19.7 g/dL (13.5-16.0); Immature Granulocytes % (Auto) 0 % (0-0); Immature Granulocytes Auto 0.01 Thou/mm3 (0.00-0.00); Lymphocytes # (Auto) 1.7 Thou/mm3 (1.0-4.8); Lymphocytes % (Auto) 24 % (10-50); Mean Corpuscular HGB Conc 34.7 g/dl (31.0-37.0); Mean Corpuscular Hemoglobin 31.5 pg (25.0-35.0); Mean Corpuscular Volume 91 fL (80-100); Monocytes # (Auto) 0.6 Thou/mm3 (0.0-0.8); Monocytes % (Auto) 8 % (0-12); Neutrophils # (Auto) 4.4 Thou/mm3 (1.8-7.7); Neutrophils % (Auto) 62 % (37-80); Nucleated Red Blood Cell % 0 /100 WBC (0); Platelet Count 228 Thou/mm3 (140-440); RDW Standard Deviation 42.5 fL (35.1-43.9); Red Blood Count 6.25 Miln/mm3 (4.50-5.90); White Blood Count 7.2 Thou/mm3 (3.8-10.6)
[2024-02-24 07:07] LABS: Alanine Aminotransferase 40 U/L (10-49); Albumin, Serum 4.8 gm/dL (3.5-5.0); Albumin/Globulin Ratio 1.8 (1.2-2.2); Alkaline Phosphatase 69 U/L (46-116); Anion Gap 10 (7-16); Aspartate Amino Transferase 34 U/L (0-34); BUN/Creatinine Ratio 12 Ratio (12-20); Bilirubin,Total 2.1 mg/dL (0.3-1.2); Blood Urea Nitrogen 12 mg/dL (9-23); Calcium 9.8 mg/dL (8.3-10.6); Calcium (Corrected) 9.8 mg/dL (8.5-10.1); Carbon Dioxide 24.8 mMol/L (20.0-31.0); Chloride 102 mMol/L (98-107); Estimated Creatinine Clearance 81.4 mL/min (>60); Globulin 2.6 gm/dL (2.3-3.5); Glucose 81 mg/dL (74-106); Osmolality,Calculated 272 (275-295); Potassium 3.6 mMol/L (3.4-5.1); Sodium 137 mMol/L (136-145); Total Protein 7.4 gm/dL (5.7-8.2); eGFR > 60 See Note
--- NOTE | 2024-02-24 07:58 | PD.RESDS ---
Planned Discharge Date 02/24/24 DS: Providers Provider Date of admission: 02/21/24 20:29 Primary care physician: Gerson Parks MD Admitting Provider: Doug Payne MD Attending Provider on Admission: Doug Payne MD Consults: 02/21/24 17:35 Consult to Neurology / Tele-Neurology Routine Comment: Consulting Provider: [facility] 02/21/24 20:35 Consult to Neurology / Tele-Neurology Stat Comment: Consulting Provider: Bry Olson Referral Physical Therapy Stat Comment: Physician Instructions: DS: Diagnosis Problem List Completed Was Problem List Reviewed/Reconciled?: Yes Hospital Course Hospital Course Hospital course: 02/23/2024; patient was seen and examined by bedside with sleeping in room, overnight patient complained of sudden dizziness along with continuation of numbness for which head CT was ordered, CT was negative for acute changes but noted for chronic bilateral basal ganglia infarcts, patient this a.m. continues to have same symptoms since admission with some increase in his dizziness and left facial /upper and lower extremity numbness. No motor function deficit noted, vitals noted for elevated BP of 150/90, labs unchanged except for increase in T.bili and LDL 123, biliary US was negative for cholelithiasis/cholecystitis. Brain MRI showed 20mm right thalamic infarct, patient currently pending echocardiogram, JAK2 mutation, erythropoetin level, and peripheral blood smear, continue patient on aspirin 325 mg and atorvastatin daily per neuro recommendations along with [facility] protocol. Patient was discharged on following instructions/recommendations; Take ASA for 21 days. Take Plavix once daily for life. Take Atorvastatin once daily for life. Take Amlodipine once daily to maintain good blood pressure control. F/U with PCP within 1 week of discharge. Obtain referral for Hematology/Oncology and schedule appointment [facility]. Obtain referral to cancer treatment center for evaluation of need for phlebotomy. F/U with Neurology- Dr. Olson within 1-2 weeks of discharge. Return to ED if symptoms recur or worsen. Status at Discharge Functional status at discharge: independent ambulation Overall status at discharge: patient is not back to baseline Time Spent with Patient Time attestation: Total time spent providing and/or coordinating discharge services: 35 minutes Exam Vital Signs Temp Pulse Resp BP Pulse Ox O2 Del Method 97.3 F 70 16 142/99 H 96 Room Air 02/24/24 03:52 02/24/24 07:54 02/24/24 07:54 02/24/24 03:52 02/24/24 03:52 02/24/24 03:52 Narrative Exam General: well developed, well nourished, laying in bed, not in acute distress, answering questions appropriately, making appropriate eye contact HEENT: Normocephalic, atraumatic, EOMI, PERRLA, moist oral mucosa, normal dentition. Cardiac: Regular rate and rhythm, normal S1/S2, no murmurs. Lungs: Clear to auscultation with no wheezings or crackles, normal respiratory effort and rate. Abdomen: Soft, nontender, nondistended, positive bowel sounds in all quadrants. No guarding or rebound tenderness. Neuro: Alert and oriented to name and date of and place. CN II- XII intact, no focal motor deficit noted, BUE/BLE motor function and sensation intact and equal, patient continues to report non-resolving dizziness. Extremities: Normal to inspection, no edema, no cyanosis, motor strength intact in all extremities but patient continues to report tingling sensation. Psych: Normal mood and affect. Discharge Plan Plan Patient Disposition: HOME (Self Care) Disposition Comment: Hold discharge pending further instructions please! Patient condition on transfer: Stable Care Plan Goals: Monitor blood pressure daily. Take ASA for 21 days. Take Plavix once daily for life. Take Atorvastatin once daily for life. Take Amlodipine once daily to maintain good blood pressure control. F/U with PCP within 1 week of discharge. Obtain referral for Hematology/Oncology and schedule appointment [facility]. F/U with Neurology- Dr. Olson within 1-2 weeks of discharge. Return to ED if symptoms recur or worsen. Prescriptions/Referrals Prescriptions/Med Rec: New amlodipine [Norvasc] 10 mg tablet 10 mg PO QDAY 30 Days Qty: 30 0RF aspirin 81 mg Tablet,Delayed Release (Dr/Ec) 81 mg PO QDAY 21 Days Qty: 21 0RF atorvastatin [Lipitor] 80 mg tablet 80 mg PO HS 30 Days Qty: 30 3RF clopidogrel 75 mg Tablet 75 mg PO QDAY 30 Days Qty: 30 3RF Referrals: Gerson Parks MD [Primary Care Provider] - Patient/Caregiver Discharge Instructions Education Materials: Hypertension Stroke Link, Polycythemia and Hyperviscosity ... Print Language: Turkish Stand Alone Forms: Aicha Award Info., Patient Portal Info Letter Quality Discharge Quality Measures VTE prophylaxis and stroke Statin ordered >75 y/o:moderate or high intensity dose on DC: n/a Statin ordered <75 y/o: high intensity dose on DC: yes Statin not ordered due to:: comfort measures only Anticoagulation ordered for A-fib or flutter (current or hx): not indicated Antithrombotic ordered on DC: ordered
[2024-02-24] MEDS: amLODIPine BESYLATE 5 MG TABLET 10 MG PO (08:32)
[2024-02-24] MEDS: CLOPIDOGREL BISULFATE 75 MG TABLET PO (08:32)
[2024-02-24] MEDS: ASPIRIN EC 81 MG TABEC PO (08:32)
[2024-02-24] MEDS: PANTOPRAZOLE 40 MG TABLET PO (08:32)
[2024-02-24] MEDS: SENNA TABLET 1 TAB PO (08:33)
[2024-02-24] MEDS: THIAMINE 100 MG TABLET PO ×2 (08:33→20:11)
[2024-02-24] MEDS: FOLIC ACID 1 MG TABLET PO ×2 (08:33→20:10)
--- NOTE | 2024-02-24 12:29 | PD.RESPRO ---
Documentation for date of: 02/24/24 Subjective Subjective Interval history: 02/24/2024; patient was seen and examined by bedside with present in room, no acute overnight events, continues to have dizziness and left facial /upper and lower extremity numbness. No motor function deficit noted, vitals noted for elevated BP of 160/118, labs unchanged except for increase in T.bili and LDL 123, biliary US was negative for cholelithiasis/cholecystitis. Brain MRI showed 20mm right thalamic infarct, and peripheral blood smear, patient was started on amlodipine 10 mg, Lisinopril 5mg, aspirin dose was reduced to 81 mg with addition of clopidogrel by neurology and atorvastatin daily per neuro recommendations along with [facility] protocol. Patient currently pending echocardiogram, JAK2 mutation, erythropoetin level, protein C&S activity, factor V mutation along with other anticoagulation panels. Per neurorecommendations will consult cardiology for inpatient MEGAN along with possible long-term Holter monitoring as patient has had multiple strokes at young age with no clear explanation. Cardiology consult placed, will continue to monitor patient's condition, elevated BP, and daily labs. Exam Vital Signs Temp Pulse Resp BP Pulse Ox O2 Del Method 97.7 F 87 17 160/118 H 97 Room Air 02/24/24 08:00 02/24/24 08:32 02/24/24 08:00 02/24/24 08:32 02/24/24 08:00 02/24/24 08:00 Narrative Exam General: well developed, well nourished, laying in bed, not in acute distress, answering questions appropriately, making appropriate eye contact HEENT: Normocephalic, atraumatic, EOMI, PERRLA, moist oral mucosa, normal dentition. Cardiac: Regular rate and rhythm, normal S1/S2, no murmurs. Lungs: Clear to auscultation with no wheezings or crackles, normal respiratory effort and rate. Abdomen: Soft, nontender, nondistended, positive bowel sounds in all quadrants. No guarding or rebound tenderness. Neuro: Alert and oriented to name and date of and place. CN II- XII intact, no focal motor deficit noted, BUE/BLE motor function and sensation intact and equal, patient continues to report non-resolving dizziness. Extremities: Normal to inspection, no edema, no cyanosis, motor strength intact in all extremities but patient continues to report tingling sensation. Psych: Normal mood and affect. Objective Labs 02/24/24 05:42 02/24/24 05:42 Labs: Laboratory Results - last 24 hr 02/23/24 02/24/24 04:59 05:42 WBC 7.2 RBC 6.25 H Hgb 19.7 H* Hct 56.8 H MCV 91 MCH 31.5 MCHC 34.7 RDW Std Deviation 42.5 Plt Count 228 Neut % (Auto) 62 Lymph % (Auto) 24 [place] % (Auto) 8 Eos % (Auto) 6 Baso % (Auto) 1 Neut # (Auto) 4.4 Lymph # (Auto) 1.7 [place] # (Auto) 0.6 Eos # (Auto) 0.4 Baso # (Auto) 0.1 Immature Gran # (Auto) 0.01 H Absolute Nucleated RBC 0.00 Immature Gran % 0 Nucleated RBC % 0 Smear Path Review Sent to Pathologist Sodium 137 Potassium 3.6 D Chloride 102 Carbon Dioxide 24.8 Anion Gap 10 BUN 12 Creatinine 1.0 Estim Creat Clear Calc 81.4 eGFR > 60 BUN/Creatinine Ratio 12 Glucose 81 Calculated Osmolality 272 L Calcium 9.8 Corrected Calcium 9.8 Total Bilirubin 2.1 H AST 34 ALT 40 Alkaline Phosphatase 69 Total Protein 7.4 Albumin 4.8 Globulin 2.6 Albumin/Globulin Ratio 1.8 Vitamin B12 591 Quality Measures Quality Measures VTE prophylaxis and stroke Suspected type of Stroke: Acute Ischemic Tenecteplase given: Reason(s) Tenecteplase not given: Outside the time window not given Rehab services: PT evaluation ordered VTE Prophylaxis: pharmaceutical Antithrombotic by day 2:: ordered Statin ordered: <75 y/o high intensity dose Anticoagulation ordered for A-fib or flutter (current or hx): not indicated Assessment & Plan Assessment Current Active Medications: Generic Name Dose Route Start Last Admin Trade Name Freq PRN Reason Stop Dose Admin Acetaminophen 650 mg 02/21/24 20:29 Acetaminophen 325 Mg Tablet PO 03/22/24 20:28 Q6H PRN PAIN OR FEVER > 101 Amlodipine Besylate 10 mg 02/24/24 09:00 02/24/24 08:32 Amlodipine Besylate 5 Mg Tablet PO 03/25/24 08:59 10 mg QDAY MINO Administration Aspirin 81 mg 02/24/24 09:00 02/24/24 08:32 Aspirin Ec 81 Mg Tabec PO 03/25/24 08:59 81 mg QDAY MINO Administration Atorvastatin Calcium 80 mg 02/23/24 21:00 02/23/24 20:23 Atorvastatin Calcium 20 Mg Tablet PO 03/24/24 20:59 80 mg HS MINO Administration Clopidogrel Bisulfate 75 mg 02/24/24 09:00 02/24/24 08:32 Clopidogrel Bisulfate 75 Mg Tablet PO 03/25/24 08:59 75 mg QDAY MINO Administration Folic Acid 1 mg 02/22/24 10:05 02/24/24 08:33 Folic Acid 1 Mg Tablet PO 02/27/24 10:04 1 mg BID MINO Administration Labetalol HCl 10 mg 02/21/24 20:34 02/23/24 08:19 Labetalol Inj 5 Mg/Ml Vial 20 Ml IVP 03/22/24 20:44 10 mg Q6H PRN Administration hypertension Lorazepam 0.5 mg 02/22/24 09:42 Lorazepam 0.5 Mg Tablet PO 02/27/24 09:41 Q4HR PRN CIWA Score 2-6 Lorazepam 1 mg 02/22/24 09:42 Lorazepam 0.5 Mg Tablet PO 02/27/24 09:41 Q4HR PRN CIWA SCORE 7-11 Lorazepam 2 mg 02/22/24 09:42 Lorazepam 0.5 Mg Tablet PO 02/27/24 09:41 Q4HR PRN CIWA SCORE 12-15 Ondansetron HCl 4 mg 02/21/24 20:29 Ondansetron Inj 2 Mg/Ml Inj 2 Ml IV 03/22/24 20:28 Q6H PRN NAUSEA OR VOMITING Protocol Pantoprazole Sodium 40 mg 02/22/24 09:00 02/24/24 08:32 Pantoprazole 40 Mg Tablet PO 03/23/24 08:59 40 mg QDAY MINO Administration Sennosides 1 tab 02/22/24 09:00 02/24/24 08:33 Senna Tablet PO 03/23/24 08:59 1 tab QDAY MINO Administration Protocol Thiamine HCl 100 mg 02/22/24 10:05 02/24/24 08:33 Thiamine 100 Mg Tablet PO 02/27/24 10:04 100 mg BID MINO Administration Plan 43-year-old male with past medical history of use disorder, smoking history ([id number]), possible hypertension not on any medication was admitted for CVA/TIA rule out and hypertensive urgency treatment and management. 02/24/2024; patient was seen and examined by bedside with present in room, no acute overnight events, continues to have dizziness and left facial /upper and lower extremity numbness. No motor function deficit noted, vitals noted for elevated BP of 160/118, labs unchanged except for increase in T.bili and LDL 123, biliary US was negative for cholelithiasis/cholecystitis. Brain MRI showed 20mm right thalamic infarct, and peripheral blood smear, patient was started on amlodipine 10 mg, Lisinopril 5mg, aspirin dose was reduced to 81 mg with addition of clopidogrel by neurology and atorvastatin daily per neuro recommendations along with CIWA protocol. Patient currently pending echocardiogram, JAK2 mutation, erythropoetin level, protein C&S activity, factor V mutation along with other anticoagulation panels. Per neurorecommendations will consult cardiology for inpatient MEGAN along with possible long-term Holter monitoring as patient has had multiple strokes at young age with no clear explanation. Cardiology consult placed, will continue to monitor patient's condition, elevated BP, and daily labs. #Right thalamic infarct #Dizziness. #Left upper and lower extremities numbness. #Hypertensive emergency #Ruling out stroke/CVA Patient who presented with left-sided numbness/weakness which started at 1 PM on 02/20 Patient presented with blood pressure with systolics in the 200s In ED patient was given 20 of IV push hydralazine, and was placed on nicardipine drip CT head was done which was negative for acute hemorrhage, mass effect or midline shift, showed multiple small old appearing basal ganglia infarcts CTA head/neck was negative for any LVO Activate stroke protocol order set NIHSS score 1. Patient is not a candidate for tPA, LWK above 4.5 hours Passed bedside nursing swallow Plan: Neurology consulted, Dr. Olson, appreciate recommendations MRI w/wo contrast Echo with bubble study ordered Neurochecks every 4 HOB elevation 30 degree Continue Aspirin and atorvastatin Temperature control Euglycemia state Physical therapy evaluation. #Alcohol use disorder #Hyperbilirubinemia 5?points Child Class A Life Expectancy : 15-20 years Abdominal surgery gomez-operative mortality: 10% 9?points MELD Score (2016)* 1.9% Estimated 3-Month Mortality Patient states he drinks 5-6 beers a day Last drink was day prior to admission Patient appears slightly listless and restless on examination but denies having any diaphoresis/visual or auditory hallucinations/tongue fasciculations or tremors currently Plan: Ultrasound liver ordered [facility] protocol in place Folic and Thiamine supplementation #HTN Patient does not follow-up outpatient with PCP Presented with hypertensive emergency as stated above Plan: Start patient on PETER/ARB on 02/22 if blood pressure remains elevated Will continue to monitor, telemetry #Polycythemia #History of Smoking Tobacco Patient is active smoker (>20pack year hx), denies using anabolic steroids, states that his mentions he snores Elevated HxH, dizziness, headache , hyperviscosity Plan: Patient could benefit from sleep study outpatient Blood smear and Jak2 mutation send out lab F/U erythropoetin level. Patient denied wanting Nicotine patch at this time Hospital Management: Lines: PIV Bowel: Senna as needed Diet: Regular, passed bedside swallow eval GI prophylaxis: Not required DVT prophylaxis: Heparin SC Dispo: Pending stroke workup; telemetry Code: Full Plan of care discussed with attending Dr. Lore Robledo, PGY-3 Attending Provider Attestation/Addendum I have discussed and was present for the essential components of the history, physical examination, diagnosis, and treatment plan with the resident. I agree with the patient's care as documented by the resident and amended herein by me. Shubham Torrez DO. In short and short, patient is a 43-year-old male with significant past medical history of substance abuse, tobacco use and questionable history of hypertension was admitted for strokelike symptoms and CVA rule out as well as hypertensive urgency. Initial CT head was negative for any acute intracranial pathology however did show small old appearing basal ganglia infarcts, CTA head and neck unremarkable, MRI brain demonstrated a 20 mm acute infarct in the right thalamus. INTERVAL HX: 02/23: Patient has no subjective complaints today, vital signs stable, patient afebrile overnight, patient on room air, SpO2 96%. Significant labs today include a hemoglobin of 19.7 which have been relatively stable since admission although elevated, BMP largely unremarkable. A renal ultrasound was also performed for possible secondary causes of erythrocytosis however negative study. CURRENT MEDICATIONS: Aspirin 81 mg daily Plavix 75 mg p.o. daily Atorvastatin 80 mg at bedtime Folic acid 1 mg p.o. twice daily Lisinopril 5 mg daily Protonix 40 mg daily Thiamine 100 mg p.o. twice daily ASSESSMENT: #Acute CVA, 20 mm infarct in the right thalamus #Erythrocytosis, possible polycythemia vera in setting of elevated hemoglobin/hematocrit with normal oxygen saturation, suspected hyperviscosity syndrome ISO CVA. Patient is an active smoker which also may contribute to his erythrocytosis. #Hypertensive emergency #Hyperbilirubinemia #Alcohol abuse PLAN: ?Neurology consulted, appreciate recommendations -Continue aspirin and Plavix as well as high-dose statin ? Blood pressure control, patient presently on lisinopril 5 mg daily and amlodipine 10 mg daily, will titrate as needed ? Hypercoagulability workup pending to include workup for polycythemia vera to include JAK2, erythropoietin levels, Red cell mass, antiphospholipid antibodies, Antithrombin, factor V Leiden, homocysteine, lupus anticoagulation, protein C, protein S etc. - Renal ultrasound performed, unremarkable, will also perform ultrasound of the patient's spleen to look for enlargement. ? Echo pending ? CIWA protocol in place Although this document has been carefully reviewed, there may still be some phonetic and other typographical errors. These errors are purely grammatical due to imperfections in the software program and should not be construed in any way to compromise the substance of the patient's medical care during this visit.
[2024-02-24] MEDS: POTASSIUM CHLORIDE 20 mEq TABCR 40 MEQ PO (13:32)
[2024-02-24] MEDS: Lisinopril 2.5 MG TABLET 5 MG PO (13:32)
--- NOTE | 2024-02-24 14:22 | XR_ITS ---
Examination: Ultrasound spleen Indications: Suspect splenic portal vein thrombus, elevated bilirubin on laboratory examination February 22, 2024 Exam date and time: February 24, 2024 1424 hrs. Technique And Findings: Multiple high resolution grayscale sonographic images of the spleen Spleen 9.2 x 3.7 x 8.4 cm No splenic lesion Splenic arterial and venous flow Impression: Normal spleen
[2024-02-24] MEDS: ATORVASTATIN CALCIUM 20 MG TABLET 80 MG PO (20:10)
[2024-02-24] MEDS: HEPARIN SOD INJ 5000 UNIT/ML VIAL SC (20:11)
--- NOTE | 2024-02-24 21:58 | PD.NEUROPROG ---
Documentation for date of: 02/24/24 Subjective Subjective Interval history: Patient is in telemetry. Continues to have left leg monoparesis and paresthesia but significantly improved since admission. Exam - Neurology Vital Signs Temp Pulse Resp BP Pulse Ox O2 Del Method 97.4 F 80 12 129/74 98 Room Air 02/24/24 19:24 02/24/24 19:24 02/24/24 19:24 02/24/24 19:24 02/24/24 19:24 02/24/24 19:24 Narrative Exam GENERAL APPEARANCE: Well hydrated, well-nourished in no acute distress. HEENT: Normocephalic, atraumatic, extraocular movements intact. Pupils: Equal reacting to light and accommodation NECK: Supple, no JVD or bruits. CARDIOVASULAR: Heart: S1, S2 heard, regular without S3-S4 or murmur no rubs or gallops. LUNGS/CHEST: Clear to auscultation bilaterally. No rails, rhonchi, or wheezing. Normal inspection. ABDOMEN: Soft, nontender, with normal bowel sounds. No pulsatile masses. No rebound, rigidity, or guarding. Normal inspection and palpation. EXTREMITIES: Normal inspection and palpation. No edema, clubbing or cyanosis. SKIN: Warm and dry without rashes. Normal inspection. MUSCULOSKELETAL: No cervical, thoracic, lumbar or midline bony tenderness. Normal inspection. NEURO: Alert, awake and oriented x3. Cranial nerves: II through XII grossly intact. Speech and language: Normal with no dysarthria or dysphasia. Motor system: Tone and bulk: Normal: Strength: 5 out of 5 in all 4 extremities; No pronator drift noted. Deep tendon reflexes: 2+ bilaterally symmetrical. Plantar reflex: Downgoing bilaterally. Sensory system: Intact to all modalities of sensation bilaterally. Coordination: Intact to [id number] and [id number] test bilaterally. No ataxia, no dysmetria, or dysdiadochokinesia noted. No intention tremors noted. Gait: Walked with a walker. No signs of meningeal irritation noted. PSYCHIATRIC: Normal mood and affect. Objective Labs 02/24/24 05:42 02/24/24 05:42 Labs: Laboratory Results - last 24 hr 02/24/24 05:42 WBC 7.2 RBC 6.25 H Hgb 19.7 H* Hct 56.8 H MCV 91 MCH 31.5 MCHC 34.7 RDW Std Deviation 42.5 Plt Count 228 Neut % (Auto) 62 Lymph % (Auto) 24 [place] % (Auto) 8 Eos % (Auto) 6 Baso % (Auto) 1 Neut # (Auto) 4.4 Lymph # (Auto) 1.7 [place] # (Auto) 0.6 Eos # (Auto) 0.4 Baso # (Auto) 0.1 Immature Gran # (Auto) 0.01 H Absolute Nucleated RBC 0.00 Immature Gran % 0 Nucleated RBC % 0 Sodium 137 Potassium 3.6 D Chloride 102 Carbon Dioxide 24.8 Anion Gap 10 BUN 12 Creatinine 1.0 Estim Creat Clear Calc 81.4 eGFR > 60 BUN/Creatinine Ratio 12 Glucose 81 Calculated Osmolality 272 L Calcium 9.8 Corrected Calcium 9.8 Total Bilirubin 2.1 H AST 34 ALT 40 Alkaline Phosphatase 69 Total Protein 7.4 Albumin 4.8 Globulin 2.6 Albumin/Globulin Ratio 1.8 Assessment & Plan Assessment and plan (1) Acute CVA (cerebrovascular accident): Status: Acute Assessment and plan: With left leg monoparesis and paresthesia MRI brain showed right thalamic infarct Echocardiogram: Normal study He would need cardiology consult for transesophageal echocardiogram and extended Holter monitoring to evaluate for cardiac arrhythmias Follow-up with hypercoagulopathy workup, Continue with aspirin 81 mg and Plavix 75 mg for prophylaxis along with high intensity statin (2) Hypertensive urgency: Status: Resolved Assessment and plan: Continue with aggressive blood pressure management (3) Polycythemia: Status: Acute Assessment and plan: Needs hematology evaluation for periodic phlebotomy
[2024-02-25] VITALS (10 sets, daily range): BP systolic 109–155; BP diastolic 74–98; PULSE 59–93; RESP 16–95; TEMP 36.2–36.7; O2SAT 93–96
[2024-02-25 06:48] LABS: Basophils # (Auto) 0.1 Thou/mm3 (0.0-0.2); Basophils % (Auto) 1 % (0-2.5); Eosinophils # (Auto) 0.4 Thou/mm3 (0.0-0.5); Eosinophils % (Auto) 6 % (0-10); Hematocrit 55.1 % (41.0-53.0); Hemoglobin 18.9 g/dL (13.5-16.0); Immature Granulocytes % (Auto) 0 % (0-0); Immature Granulocytes Auto 0.02 Thou/mm3 (0.00-0.00); Lymphocytes # (Auto) 1.7 Thou/mm3 (1.0-4.8); Lymphocytes % (Auto) 26 % (10-50); Mean Corpuscular HGB Conc 34.3 g/dl (31.0-37.0); Mean Corpuscular Hemoglobin 31.9 pg (25.0-35.0); Mean Corpuscular Volume 93 fL (80-100); Monocytes # (Auto) 0.7 Thou/mm3 (0.0-0.8); Monocytes % (Auto) 10 % (0-12); Neutrophils # (Auto) 3.9 Thou/mm3 (1.8-7.7); Neutrophils % (Auto) 58 % (37-80); Nucleated Red Blood Cell % 0 /100 WBC (0); Platelet Count 222 Thou/mm3 (140-440); RDW Standard Deviation 43.2 fL (35.1-43.9); Red Blood Count 5.93 Miln/mm3 (4.50-5.90); White Blood Count 6.8 Thou/mm3 (3.8-10.6)
[2024-02-25 06:56] LABS: Anion Gap 9 (7-16); BUN/Creatinine Ratio 15 Ratio (12-20); Blood Urea Nitrogen 15 mg/dL (9-23); Calcium 9.4 mg/dL (8.3-10.6); Carbon Dioxide 25.4 mMol/L (20.0-31.0); Chloride 104 mMol/L (98-107); Estimated Creatinine Clearance 81.4 mL/min (>60); Glucose 88 mg/dL (74-106); Osmolality,Calculated 275 (275-295); Potassium 4.1 mMol/L (3.4-5.1); Sodium 138 mMol/L (136-145); eGFR > 60 See Note
[2024-02-25] MEDS: ASPIRIN EC 81 MG TABEC PO (09:04)
[2024-02-25] MEDS: CLOPIDOGREL BISULFATE 75 MG TABLET PO (09:04)
[2024-02-25] MEDS: THIAMINE 100 MG TABLET PO ×2 (09:04→20:57)
[2024-02-25] MEDS: HEPARIN SOD INJ 5000 UNIT/ML VIAL SC ×2 (09:04→20:59)
[2024-02-25] MEDS: PANTOPRAZOLE 40 MG TABLET PO (09:04)
[2024-02-25] MEDS: FOLIC ACID 1 MG TABLET PO ×2 (09:04→20:56)
[2024-02-25] MEDS: SENNA TABLET 1 TAB PO (09:04)
[2024-02-25] MEDS: Lisinopril 2.5 MG TABLET 5 MG PO (09:05)
--- NOTE | 2024-02-25 10:12 | ESCONSULT_ITS ---
HPI Data of Consult Requesting Physician: Doug Payne MD Admitting Provider: Doug Payne MD Attending Provider: Doug Payne MD Primary Care Provider: Gerson Parks MD Consult Narrative Reason for consult: Stroke History of present illness: 43-year-old male with no relevant past medical history other than alcohol abuse disorder (sixpack of beers per day) and active smoker (half pack a day) was admitted to the hospital on 02/21/2024 due to strokelike symptoms and hypertensive emergency. Patient stated that on 02/21/2024 when he woke up he felt his left arm and left leg numb as well as he had difficulty walking due to weakness in his left leg. He also endorsed having some numbness in his left side face, dizziness, and headaches and his who was at bedside today stated that he was also having some slurred speech. He mentioned he had never had the symptoms before in the past and that this was new to him. Initially patient also had a blood pressure of 209/132 he denied any chest pain, palpitations, shortness of breath, or visual changes. In ED patient received 20 mg IV hydralazine x 1 and was placed on a Cardene drip. Teleneurology was consulted on admission and follow-up patient to have an NIHSS score of 1 and stated patient was out of window for tPA as his last known well normal was around 1 PM and he presented to the ER around 6 PM. Initially patient was afebrile, saturating well on room air at 97%, afebrile, and hypertensive. His initial labs showed elevated hemoglobin 21.2, elevated hematocrit 59.9, elevated PT 12.7, PTT 30.3, INR 1.2, potassium 3.8, BUN 8, creatinine 1.1, calcium 10.1, magnesium 1.9, T bilirubin 1.2, troponins were less than 0.002, UA was negative for any bacteria or blood, and U tox was negative. Initial imaging included head CT which showed multiple small old appearing basal ganglia infarcts, but no acute hemorrhage, mass effect, or midline shift, head/neck CTA did not show significant neck arterial stenosis and no cerebral large vessel arterial occlusions, EKG shows sinus rhythm, echo showed EF 65 to 70% with trace MR and a negative bubble study with no evidence of PFO or ASD. Since admission patient has significantly improved stating that his numbness in his left lower extremity as well as his left upper extremity and face is very minimal at this time. was at the bedside today also mentioned that he has significantly improved his speech and he is not having any slurred speech at this time. Patient mentioned that he has not follow-up with any physician for more than 10 years. He also mentioned that he does not know of any family medical history including his parents, grandparents, or siblings. He also mentioned that he does not take any daily medication. Over the course of patient's hospital stay he underwent additional imaging including a liver ultrasound due to elevated bilirubin and history of alcohol use showed lesion likely hemangioma and gallbladder sludge, head CT which was unchanged from initial one, brain MRI which showed a 20 mm acute infarct of the right thalamus, renal ultrasound which did not show any hydronephrosis or renal calculi, and spleen ultrasound which showed a normal spleen. Given unclear etiology of patient's stroke cardiology was consulted. Home medications: None per patient Past medical history: None per patient Past surgical history: None per patient Allergies: NKDA Social history: Smokes half a pack a day for the past 20+ years, drinks 6-7 beers per day, denies any illicit drugs. Patient lives with his . 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 cc:: cc: Doug Payne MD Review of Systems Review of Systems Narrative Review of Systems: Constitutional: Denies sweats, Denies weight loss/gain, Denies fever, Denies chills. HEENT: Denies hearing loss, Denies ear pain, Denies postnasal drip, Denies double vision, Denies blurry vision. Respiratory: Denies shortness of breath, Denies cough, Denies wheezing. Cardiovascular: Admits/Denies chest pain, Admits/Denies palpitations, Denies sudden loss of consciousness. GI: Denies blood in stool, Denies constipation, Denies abdominal pain, Denies difficulty swallowing, Denies nausea or vomit. : Denies urinary incontinence, Denies pain while urinating, Denies increased urinary frequency. MSK: Denies joint pain, Denies joint swelling, Admits numbness. Skin: Denies rash, Denies itching, Denies easy bruising. Neuro: Denies headaches, Admits dizziness, Denies seizures. Past Medical History Past Medical History Comments PMH COMMENT: Home medications: None per patient Past medical history: None per patient Past surgical history: None per patient Allergies: NKDA Social history: Smokes half a pack a day for the past 20+ years, drinks 6-7 beers per day, denies any illicit drugs. Patient lives with his . 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 Exam Vital Signs Temp Pulse Resp BP Pulse Ox O2 Del Method 97.8 F 84 17 120/78 93 L Room Air 02/25/24 08:00 02/25/24 09:05 02/25/24 08:00 02/25/24 09:05 02/25/24 08:00 02/25/24 08:00 Narrative Exam General: A/O x3, no acute distress, well-nourished, well-developed Eyes: PERRL, EOMI. Anicteric, vision grossly intact. Ears: No ear pain, no ear discharge, Hearing grossly intact. Nose: No nasal discharge. Mouth/Throat: Moist mucous membranes, poor denation, no redness, no lesions. Neck: Neck supple, non-tender, no cervical lymphadenopathy. Lungs: Clear WILIAN to auscultation and percussion, No accessory muscle use. Cardio: Normal S1/S2, regular rhythm, no murmurs, no JVD assessed. Abdomen: Soft, non-tender, no palpable masses, peristalsis present, no guarding or rebound. Extremities: Symmetrical, no significant deformities, no peripheral edema , non-tender, peripheral pulses presents. Skin: No rashes, no lesions, warm to touch. multiple tattoos throughout upper body. Neuro: Able to move all extremities, strength bilateral lower extremities 4/4, strength bilateral upper extremities 4/4, decreased sensation on left side of face, unequal sensation on left upper extremity and left lower extremity when compared to right upper extremity and right lower extremity respectively. No facial asymmetry and clear speech. Psych: Cooperative, appropriate mood and effect. Results Labs 02/26/24 04:37 02/26/24 04:37 Labs: Short CBC 02/25/24 Range/Units 06:06 WBC 6.8 (3.8-10.6) Thou/mm3 Hgb 18.9 H* (13.5-16.0) g/dL Hct 55.1 H (41.0-53.0) % Plt Count 222 (140-440) Thou/mm3 BMP 02/25/24 06:06 Sodium 138 Potassium 4.1 D Chloride 104 Carbon Dioxide 25.4 BUN 15 Creatinine 1.0 Glucose 88 Calcium 9.4 Quality Measures Quality Measures VTE prophylaxis and stroke Suspected type of Stroke: Acute Ischemic Tenecteplase given: Reason(s) Tenecteplase not given: Outside the time window not given Rehab services: PT evaluation ordered VTE Prophylaxis: pharmaceutical Antithrombotic by day 2:: not indicated (describe) (out of window ) Statin ordered: <75 y/o high intensity dose Anticoagulation ordered for A-fib or flutter (current or hx): not indicated Medications Home Medications and Allergies Allergies Allergy/AdvReac Type Severity Reaction Status Date / Time No Known Allergies Allergy Verified 02/21/24 17:16 Visit Medications Acetaminophen (Acetaminophen 325 Mg Tablet) 650 mg PO Q6H PRN PRN Reason: PAIN OR FEVER > 101 Stop: 03/22/24 20:28 Amlodipine Besylate (Amlodipine Besylate 5 Mg Tablet) 5 mg PO HS [facility] Stop: 03/26/24 20:59 Aspirin (Aspirin Ec 81 Mg Tabec) 81 mg PO QDAY [facility] Stop: 03/25/24 08:59 Last Admin: 02/25/24 09:04 Dose: 81 mg Atorvastatin Calcium (Atorvastatin Calcium 20 Mg Tablet) 80 mg PO HS [facility] Stop: 03/24/24 20:59 Last Admin: 02/24/24 20:10 Dose: 80 mg Clopidogrel Bisulfate (Clopidogrel Bisulfate 75 Mg Tablet) 75 mg PO QDAY [facility] Stop: 03/25/24 08:59 Last Admin: 02/25/24 09:04 Dose: 75 mg Folic Acid (Folic Acid 1 Mg Tablet) 1 mg PO BID [facility] Stop: 02/27/24 10:04 Last Admin: 02/25/24 09:04 Dose: 1 mg Heparin Sodium (Porcine) (Heparin Sod Inj 5000 Unit/Ml Vial) 5,000 unit SC BID [facility] Stop: 03/09/24 20:59 Last Admin: 02/25/24 09:04 Dose: 5,000 unit Labetalol HCl (Labetalol Inj 5 Mg/Ml Vial 20 Ml) 10 mg IVP Q6H PRN PRN Reason: hypertension Stop: 03/22/24 20:44 Last Admin: 02/23/24 08:19 Dose: 10 mg Lisinopril (Lisinopril 2.5 Mg Tablet) 5 mg PO QDAY [facility] Stop: 03/25/24 12:44 Last Admin: 02/25/24 09:05 Dose: 5 mg Lorazepam (Lorazepam 0.5 Mg Tablet) 0.5 mg PO Q4HR PRN PRN Reason: CIWA Score 2-6 Stop: 02/27/24 09:41 Lorazepam (Lorazepam 0.5 Mg Tablet) 1 mg PO Q4HR PRN PRN Reason: CIWA SCORE 7-11 Stop: 02/27/24 09:41 Lorazepam (Lorazepam 0.5 Mg Tablet) 2 mg PO Q4HR PRN PRN Reason: CIWA SCORE 12-15 Stop: 02/27/24 09:41 Ondansetron HCl (Ondansetron Inj 2 Mg/Ml Inj 2 Ml) 4 mg IV Q6H PRN; Protocol PRN Reason: NAUSEA OR VOMITING Stop: 03/22/24 20:28 Pantoprazole Sodium (Pantoprazole 40 Mg Tablet) 40 mg PO QDAY [facility] Stop: 03/23/24 08:59 Last Admin: 02/25/24 09:04 Dose: 40 mg Sennosides (Senna Tablet) 1 tab PO QDAY [facility]; Protocol Stop: 03/23/24 08:59 Last Admin: 02/25/24 09:04 Dose: 1 tab Thiamine HCl (Thiamine 100 Mg Tablet) 100 mg PO BID [facility] Stop: 02/27/24 10:04 Last Admin: 02/25/24 09:04 Dose: 100 mg Discontinued Medications Acetaminophen (Acetaminophen 500 Mg Tablet) 1,000 mg PO X1 ONE Stop: 02/21/24 18:47 Last Admin: 02/21/24 18:52 Dose: Not Given Amlodipine Besylate (Amlodipine Besylate 5 Mg Tablet) 10 mg PO QDAY [facility] Stop: 03/25/24 08:59 Last Admin: 02/24/24 08:32 Dose: 10 mg Amlodipine Besylate (Amlodipine Besylate 5 Mg Tablet) 5 mg PO HS [facility] Stop: 03/26/24 20:59 Aspirin (Aspirin 325 Mg Tablet) 325 mg PO X1 ONE Stop: 02/21/24 19:58 Last Admin: 02/21/24 20:53 Dose: 325 mg Aspirin (Aspirin Ec 81 Mg Tabec) 81 mg PO QDAY [facility] Stop: 03/23/24 08:59 Aspirin (Aspirin 325 Mg Tablet) 325 mg PO QDAY [facility] Stop: 03/23/24 08:59 Last Admin: 02/23/24 08:17 Dose: 325 mg Atorvastatin Calcium (Atorvastatin Calcium 20 Mg Tablet) 40 mg PO HS [facility] Stop: 03/22/24 20:59 Last Admin: 02/22/24 20:04 Dose: 40 mg Folic Acid (Folic Acid 1 Mg Tablet) 1 mg PO BID [facility] Stop: 02/27/24 20:59 Hydralazine HCl (Hydralazine Inj 20 Mg/Ml Vial) 20 mg IV X1 ONE Stop: 02/21/24 17:37 Last Admin: 02/21/24 18:07 Dose: 20 mg Hydralazine HCl (Hydralazine Inj 20 Mg/Ml Vial) 20 mg IV X1 ONE Stop: 02/23/24 11:39 Last Admin: 02/23/24 11:42 Dose: 20 mg Nicardipine/Sodium Chloride (Cardene Ivpb) 20 mg in 200 mls @ 50 mls/hr IV .Q4H PRN; Protocol PRN Reason: Per Protocol Stop: 03/22/24 18:44 Sodium Chloride (Ns) 1,000 mls @ 999 mls/hr IV .Q1H1M ONE Stop: 02/21/24 20:48 Last Infusion: 02/21/24 21:59 Dose: Infused Lisinopril (Lisinopril 2.5 Mg Tablet) 5 mg PO QDAY [facility] Stop: 03/25/24 12:44 Last Admin: 02/24/24 13:32 Dose: 5 mg Metoprolol Tartrate (Metoprolol Tartrate Inj 1 Mg/Ml Amp 5 Ml) 5 mg IVP X1 ONE Stop: 02/21/24 21:52 Last Admin: 02/21/24 23:41 Dose: Not Given Potassium Chloride (Potassium Chloride 20 Meq Tabcr) 40 meq PO X1 ONE Stop: 02/22/24 09:51 Last Admin: 02/22/24 10:09 Dose: 40 meq Potassium Chloride (Potassium Chloride 20 Meq Tabcr) 40 meq PO X1 ONE Stop: 02/24/24 12:40 Last Admin: 02/24/24 13:32 Dose: 40 meq Thiamine HCl (Thiamine 100 Mg Tablet) 100 mg PO BID [facility] Stop: 02/27/24 20:59 Assessment & Plan Plan 43-year-old male with no relevant past medical history other than alcohol abuse disorder (sixpack of beers per day) and active smoker (half pack a day) was admitted to the hospital on 02/21/2024 due to stroke-like symptoms and hypertensive emergency. 1. Right thalamic infarct 2. Dizziness 3. Left upper and lower extremity paresthesia 4. Dysarthria ?Patient came in on 02/21/2024 with complaints of dizziness, left upper and lower extremity numbness as well as weakness on the left lower extremity, as well as slurred speech. ?Brain MRI on 02/23/2024 showed a 20 mm acute infarct of the right thalamus ?There is no clear reason as of now for patient's stroke -Patient denies any kind of swallowing problems, esophageal interventions or prior surgeries. -Patient denies any kind of gastric ulcer bleeding, hematemesis, or hematochezia. -Patient denies any issue with anesthesia priorly. -Patient explained all risks, benefits, and alternative of MEGAN including, but not limited to risk of perforation, bleeding, respiratory failure secondary to sedation, injury to teeth, gum, esophagus, or stomach. Patient understands all risks and benefits and provided consent for the procedure. Plan: ?N.p.o. after midnight ?MEGAN tomorrow ?Recommended to continue DAPT and high intensity statin. ?Recommend to follow neurologist recommendations ?Cardiology will follow this case 5. Hypertensive emergency ?Initial blood pressure was 209/132 ?Patient had focal neurological symptoms ?Initially patient had no chest pain, chest discomfort, or shortness of breath. ?Initial EKG showed sinus rhythm ?Blood pressure this morning 120/78 Plan: ?Recommend continuing lisinopril 5 mg daily ?Recommend IV labetalol with parameters of SBP above 200, or DBP above 110 6. Erythrocytosis 7. Active smoker ?Patient's hemoglobin on admission was 21.2 and hematocrit 59.9 ?Patient smokes half a pack of cigarette every day which could explain the erythrocytosis ?DDx erythrocytosis secondary to cigarette smoking versus ?I counseled the patient extensively about need to quit smoking and he showed desire to quit. ?Hemoglobin today 18.9 and hematocrit 55.1 ?Patient's erythrocytosis percent and increased risk of thrombosis given his hypercoagulable state which could have caused his most recent stroke Plan: ?Recommend to follow-up on hematological workup included immunology ?Continue management as per primary care team 8. Alcohol abuse disorder 9. Hyperbilirubinemia 10. Hemangioma ?Patient admits to drinking 6 to 7 cans of beers every day ?Bilirubin on admission was 1.2 and up trended to 2.1 today ?Liver ultrasound was unremarkable other than an incidental hemangioma finding ?Continue management as per primary care team Continue rest of management as per primary team. We are grateful to be able to participate in Ms. Monterroso's care. Thank you for the consult Plan of care discussed with attending Vegetable Farmer, Dr Roosevelt Diane MD PGY-1 Attending Provider Attestation/Addendum I have personally seen and examined the patient separately on the above date of service and discussed the plan of care with the resident. I reviewed the resident Dr. Vanegas consultation note and agree with the resident findings and plan in the note above and have also edited the documentation to reflect my findings and plan. Gil Albert M.D. Interventional Cardiology
--- NOTE | 2024-02-25 11:22 | ECHO_ITS ---
Transesophage al Echo Report Ht 64 Wt 13 (in): (lb): 4 Exam Location: [facility] Inpatient s: Sonograph Emma Elliott er: Indicatio ns: Procedure Performed: BP 134 / 100 HR 70 : : Contras Agitated t: Saline Rhyth Sinus m: Technical Fair Quality: Total Dose (mL): Medicati ons The patient is medicated with 4mg of intravenous Versed and 100mcg of intravenous Fentanyl. Complicati ons There are no complications prior to, during or in recovery from the transesophageal ehocardiogram. FINDING S Left Ventricle Normal left ventricular size, wall thickness, systolic function with no obvious regional wall motion abnormalities. The ejection fraction is visually estimated at 60-65%. Right Ventricle The right ventricle is normal in size and systolic function. Left Atrium The left atrium is normal. Right Atrium The right atrium is normal. Atrial Septum The interatrial septum appears normal with no evidence of a shunt. Aort a The aorta is normal. Mitral Valve The mitral valve is normal. There is trace mitral valve regurgitation. Aortic Valve The aortic valve is trileaflet and normal. There is no significant aortic valve regurgitation. Tricuspid Valve The tricuspid valve is normal. There is trace tricuspid valve regurgitation. Pulmonic Valve There is no significant pulmonic valve regurgitation. Vesse ls The pulmonary artery appears normal. The inferior vena cava pulmonary and hepatic veins appear normal. Pericard ium The pericardium is normal. There is no significant pericardial effusion. CONCLUSIO NS Indication: Stroke R/O PFO Negative bubble study. No evidence of PFO or LA/RUIZ thrombus. Normal LV size and function. Estimated EF 60-65% Normal RV size and function. Trace MR, TR. Gil Albert (Electronically Signed) Final Date: 26 February 2024 16:09
--- NOTE | 2024-02-25 12:40 | ESPR_ITS ---
Documentation for date of: 02/25/24 Subjective Subjective Interval history: Patient was seen and examined by bedside with present in room, no acute overnight events Patient tolerating diet, adequate urine output and mentation is at baseline. Patient endorses improvement of left leg paresis, however continues to have dizziness and residual LT LE paresthesia up to the knees He is scheduled for a MEGAN tomorrow for further evaluation given history of recurrent CVA, as recommended by neurology Patient is tolerating diet, no difficulty swallowing Exam Vital Signs Temp Pulse Resp BP Pulse Ox O2 Del Method 97.8 F 76 17 120/78 93 L Room Air 02/25/24 08:00 02/25/24 12:00 02/25/24 08:00 02/25/24 09:05 02/25/24 08:00 02/25/24 08:00 Narrative Exam Constitutional Alert, oriented x3 and comfortable HEENT Vision grossly intact. Patent nares. Trachea midline. Respiratory Chest normal on inspection and clear to auscultation bilaterally. Cardiovascular S1 and S2 audible, RRR. No murmurs or carotid bruit. No gross JVD. Abdominal Soft and non tender to palpation in all quadrants. BS + Genitourinary No bladder tenderness, no flank pain. Normal to palpation. Musculoskeletal Extremities tone within normal limits. No LE edema. Neurological CN II - XII grossly intact. LLE reduced sensory function Skin Warm, dry and intact. No apparent lesions. Psychiatric Patient has a good affect, is cooperative. Objective Labs 02/25/24 06:06 02/25/24 06:06 Labs: Laboratory Results - last 24 hr 02/25/24 06:06 WBC 6.8 RBC 5.93 H Hgb 18.9 H* Hct 55.1 H MCV 93 MCH 31.9 MCHC 34.3 RDW Std Deviation 43.2 Plt Count 222 Neut % (Auto) 58 Lymph % (Auto) 26 [place] % (Auto) 10 Eos % (Auto) 6 Baso % (Auto) 1 Neut # (Auto) 3.9 Lymph # (Auto) 1.7 [place] # (Auto) 0.7 Eos # (Auto) 0.4 Baso # (Auto) 0.1 Immature Gran # (Auto) 0.02 H Absolute Nucleated RBC 0.00 Immature Gran % 0 Nucleated RBC % 0 Sodium 138 Potassium 4.1 D Chloride 104 Carbon Dioxide 25.4 Anion Gap 9 BUN 15 Creatinine 1.0 Estim Creat Clear Calc 81.4 eGFR > 60 BUN/Creatinine Ratio 15 Glucose 88 Calculated Osmolality 275 Calcium 9.4 Quality Measures Quality Measures VTE prophylaxis and stroke Suspected type of Stroke: Acute Ischemic Tenecteplase given: Reason(s) Tenecteplase not given: Outside the time window not given Rehab services: PT evaluation ordered and Speech Language Pathology eval ordered VTE Prophylaxis: pharmaceutical Antithrombotic by day 2:: ordered Statin ordered: <75 y/o high intensity dose Anticoagulation ordered for A-fib or flutter (current or hx): not indicated Assessment & Plan Assessment Current Active Medications: Generic Name Dose Route Start Last Admin Trade Name Freq PRN Reason Stop Dose Admin Acetaminophen 650 mg 02/21/24 20:29 Acetaminophen 325 Mg Tablet PO 03/22/24 20:28 Q6H PRN PAIN OR FEVER > 101 Amlodipine Besylate 5 mg 02/25/24 21:00 Amlodipine Besylate 5 Mg Tablet PO 03/26/24 20:59 HS MINO Aspirin 81 mg 02/24/24 09:00 02/25/24 09:04 Aspirin Ec 81 Mg Tabec PO 03/25/24 08:59 81 mg QDAY MINO Administration Atorvastatin Calcium 80 mg 02/23/24 21:00 02/24/24 20:10 Atorvastatin Calcium 20 Mg Tablet PO 03/24/24 20:59 80 mg HS MINO Administration Clopidogrel Bisulfate 75 mg 02/24/24 09:00 02/25/24 09:04 Clopidogrel Bisulfate 75 Mg Tablet PO 03/25/24 08:59 75 mg QDAY MINO Administration Folic Acid 1 mg 02/22/24 10:05 02/25/24 09:04 Folic Acid 1 Mg Tablet PO 02/27/24 10:04 1 mg BID MINO Administration Heparin Sodium (Porcine) 5,000 unit 02/24/24 21:00 02/25/24 09:04 Heparin Sod Inj 5000 Unit/Ml Vial SC 03/09/24 20:59 5,000 unit BID MINO Administration Labetalol HCl 10 mg 02/21/24 20:34 02/23/24 08:19 Labetalol Inj 5 Mg/Ml Vial 20 Ml IVP 03/22/24 20:44 10 mg Q6H PRN Administration hypertension Lisinopril 5 mg 02/25/24 08:00 02/25/24 09:05 Lisinopril 2.5 Mg Tablet PO 03/25/24 12:44 5 mg QDAY MINO Administration Lorazepam 0.5 mg 02/22/24 09:42 Lorazepam 0.5 Mg Tablet PO 02/27/24 09:41 Q4HR PRN CIWA Score 2-6 Lorazepam 1 mg 02/22/24 09:42 Lorazepam 0.5 Mg Tablet PO 02/27/24 09:41 Q4HR PRN CIWA SCORE 7-11 Lorazepam 2 mg 02/22/24 09:42 Lorazepam 0.5 Mg Tablet PO 02/27/24 09:41 Q4HR PRN CIWA SCORE 12-15 Ondansetron HCl 4 mg 02/21/24 20:29 Ondansetron Inj 2 Mg/Ml Inj 2 Ml IV 03/22/24 20:28 Q6H PRN NAUSEA OR VOMITING Protocol Pantoprazole Sodium 40 mg 02/22/24 09:00 02/25/24 09:04 Pantoprazole 40 Mg Tablet PO 03/23/24 08:59 40 mg QDAY MINO Administration Sennosides 1 tab 02/22/24 09:00 02/25/24 09:04 Senna Tablet PO 03/23/24 08:59 1 tab QDAY MINO Administration Protocol Thiamine HCl 100 mg 02/22/24 10:05 02/25/24 09:04 Thiamine 100 Mg Tablet PO 02/27/24 10:04 100 mg BID MINO Administration Plan 43-year-old male with past medical history of use disorder, smoking history ([id number]), possible hypertension not on any medication was admitted for CVA/TIA rule out and hypertensive urgency treatment and management. 02/24/2024;No motor function deficit noted, vitals noted for elevated BP of 160/118, labs unchanged except for increase in T.bili and LDL 123, biliary US was negative for cholelithiasis/cholecystitis. Brain MRI showed 20mm right thalamic infarct, and peripheral blood smear, patient was started on amlodipine 10 mg, Lisinopril 5mg, aspirin dose was reduced to 81 mg with addition of clopidogrel by neurology and atorvastatin daily per neuro recommendations along with CIWA protocol. Patient currently pending echocardiogram, JAK2 mutation, erythropoetin level, protein C&S activity, factor V mutation along with other anticoagulation panels. Per neurorecommendations will consult cardiology for inpatient MEGAN along with possible long-term Holter monitoring as patient has had multiple strokes at young age with no clear explanation. Cardiology consult placed, will continue to monitor patient's condition, elevated BP, and daily labs. 1. Acute ischemic CVA - Right thalamic infarct 2. Dizziness 3. Left lower extremities paresthesia Patient who presented with left-sided numbness/weakness which started at 1 PM on 02/20 NIHSS score 1 on admission Patient not a candidate for tPA, last well known >4.[address] head : negative for acute findings, showed multiple small old appearing basal ganglia infarcts CTA head/neck : negative Brain MRI : 20mm right thalamic infarct 02/20 Echo with bubble study: Negative bubble study. No evidence of PFO or ASD. Estimated EF 65-70% Passed bedside nursing swallow Plan: Neurology consulted, Dr. Olson, appreciate recommendations Neurochecks every 4 HOB elevation 30 degree Continue Aspirin and atorvastatin Temperature control Euglycemia state Physical therapy evaluation. 4. Hypertensive emergency Patient presented with blood pressure with systolics in the 200s In ED patient was given 20 of IV push hydralazine, and was placed on nicardipine drip Patient does not follow-up outpatient with PCP 02/24 BP trending 120/70s Plan: Started on PETER/ARB on 02/22 for HTN urgency Blood pressure controlled, on lisinopril 5 mg daily 5. Alcohol use disorder 6. Hyperbilirubinemia Patient states he drinks 5-6 beers a day Last drink was day prior to admission 5?points Child Class A Life Expectancy 9?points MELD Score (2016)* 1.9% Estimated 3-Month Mortality Patient appears slightly listless and restless on examination but denies having any diaphoresis/visual or auditory hallucinations/tongue fasciculations or tremors currently Ultrasound liver - Negative for cholelithiasis, normal CBD. Gallbladder sludge noted. Plan: CIWA protocol in place Maddrey score - does nto recommend steroids at this time Banana bag alternative x1 given IV Folic and Thiamine supplementation 7. Polycythemia 8. 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 Patient is an active smoker >20pack year hx, which also may contribute to his erythrocytosis. Denies steroid use. Renal ultrasound for possible secondary causes of erythrocytosis : negative study. 12/1 H&H improving : Hb 21 --> 18.9 and Hct 59 --> 55 He continues to complain of dizziness, headaches Plan: Hypercoagulability workup pending: JAK2, erythropoietin levels, blood smear, antiphospholipid antibodies, Antithrombin III, factor V Leiden, homocysteine, lupus anticoagulant, protein C, protein S Hematology Dr Farrell consulted, will follow up with recommendations re: need for phlebotomy Hospital Management: Dispo: Pending stroke workup; telemetry Bowel: Senna as needed Diet: Regular GI prophylaxis: Not required DVT prophylaxis: Heparin SC q12 Code status: Full Plan of care discussed with attending Dr Charles , Tristian Caba MD, PGY 2 Attending Provider Attestation/Addendum Jung, Charlene Charles, , attest that I was physically present for the [place] portions of the service and evaluated the patient with the resident and I reviewed and discussed the case with the resident and agree with the resident's findings and plans of care as documented above Patient seen and evaluated this AM. at bedside. Patient states that he is doing well and able to ambulate with walker. He continues to have some heaviness in his left leg. MS is 4+/5 in all four extremities. Patient continues to have trouble with coordination in his LUE and LLE. Pending MEGAN tomorrow. Due to persistent erythrocytosis, will consult hematology. Case was discussed with hematology, recommends phlebotomy and withdrawal 250mL of blood. Will need to wait for studies before starting any medications. However, patient can likely follow up outpatient. Patient denies any testosterone use or living in high altitudes. He is an active tobacco user, which may be the cause of his erythrocytosis. Patient to be NPO after midnight.
[2024-02-25 13:55] LABS: Base Excess 0 (-3-3); HCO3 25 mEq/L (20-26); Inspired Oxygen, FIO2 21 %; O2 Saturation 97 % (91-98); PCO2 40 mmHg (32.0-48.0); PO2 84 mmHg (83-108); pH, Arterial 7.39 (7.35-7.45)
[2024-02-25 13:56] LABS: Allen Test Performed/OK; Puncture Site Left Radial
[2024-02-25 14:12] LABS: LDH (Lactate Dehydrogenase) 185 U/L (120-246)
[2024-02-25] MEDS: ATORVASTATIN CALCIUM 20 MG TABLET 80 MG PO (20:55)
[2024-02-25] MEDS: amLODIPine BESYLATE 5 MG TABLET PO (20:56)
--- NOTE | 2024-02-25 23:23 | PD.VPROG1 ---
Telemedicine visit statement This visit was conducted with the use of phone was obtained on 02/25/24 at 2323. Documentation for date of: 02/25/24 Subjective Subjective Interval history: Patient is in telemetry. His left leg paresthesia and weakness are improving since admission. No new symptoms reported. Virtual exam Vital Signs Temp Pulse Resp BP Pulse Ox O2 Del Method 97.5 F 71 18 121/86 H 96 Room Air 02/25/24 20:00 02/25/24 20:56 02/25/24 20:00 02/25/24 20:56 02/25/24 20:00 02/25/24 20:00 Objective Labs 02/26/24 04:37 02/26/24 04:37 Labs: Laboratory Results - last 24 hr 02/25/24 02/25/24 06:06 13:44 WBC 6.8 RBC 5.93 H Hgb 18.9 H* Hct 55.1 H MCV 93 MCH 31.9 MCHC 34.3 RDW Std Deviation 43.2 Plt Count 222 Neut % (Auto) 58 Lymph % (Auto) 26 [place] % (Auto) 10 Eos % (Auto) 6 Baso % (Auto) 1 Neut # (Auto) 3.9 Lymph # (Auto) 1.7 [place] # (Auto) 0.7 Eos # (Auto) 0.4 Baso # (Auto) 0.1 Immature Gran # (Auto) 0.02 H Absolute Nucleated RBC 0.00 Immature Gran % 0 Nucleated RBC % 0 Puncture Site Left Radial ABG pH 7.39 ABG pCO2 40 ABG pO2 84 ABG HCO3 25 ABG O2 Saturation 97 ABG Base Excess 0 FiO2 21 Sodium 138 Potassium 4.1 D Chloride 104 Carbon Dioxide 25.4 Anion Gap 9 BUN 15 Creatinine 1.0 Estim Creat Clear Calc 81.4 eGFR > 60 BUN/Creatinine Ratio 15 Glucose 88 Calculated Osmolality 275 Calcium 9.4 Lactate Dehydrogenase 185 ABG Interpretation ABG results: 02/25/24 13:44 ABG pH 7.39 ABG pCO2 40 ABG pO2 84 ABG HCO3 25 ABG O2 Saturation 97 ABG Base Excess 0 Assessment & Plan Assessment (1) Acute CVA (cerebrovascular accident): Status: Acute Assessment and plan: With left leg monoparesis and paresthesia MRI brain showed right thalamic infarct Echocardiogram: Normal study He would need cardiology consult for transesophageal echocardiogram and extended Holter monitoring to evaluate for cardiac arrhythmias Follow-up with hypercoagulopathy workup, Continue with aspirin 81 mg and Plavix 75 mg for prophylaxis along with high intensity statin (2) Hypertensive urgency: Status: Resolved Assessment and plan: Continue with aggressive blood pressure management (3) Polycythemia: Status: Acute Assessment and plan: Needs hematology evaluation for periodic phlebotomy Hematology got consulted.
[2024-02-26] VITALS (25 sets, daily range): BP systolic 121–181; BP diastolic 85–146; PULSE 66–125; RESP 13–22; TEMP 35.9–36.6; O2SAT 92–98; BMI 23.3
[2024-02-26 01:50] LABS: Vitamin B12 686 pg/mL (211-911)
[2024-02-26 05:47] LABS: Basophils % (Auto) 1 % (0-2.5); Eosinophils # (Auto) 0.4 Thou/mm3 (0.0-0.5); Eosinophils % (Auto) 6 % (0-10); Hematocrit 54.9 % (41.0-53.0); Hemoglobin 18.8 g/dL (13.5-16.0); Immature Granulocytes % (Auto) 0 % (0-0); Immature Granulocytes Auto 0.02 Thou/mm3 (0.00-0.00); Lymphocytes # (Auto) 1.7 Thou/mm3 (1.0-4.8); Lymphocytes % (Auto) 22 % (10-50); Mean Corpuscular HGB Conc 34.2 g/dl (31.0-37.0); Mean Corpuscular Hemoglobin 31.5 pg (25.0-35.0); Mean Corpuscular Volume 92 fL (80-100); Monocytes # (Auto) 0.7 Thou/mm3 (0.0-0.8); Monocytes % (Auto) 10 % (0-12); Neutrophils # (Auto) 4.8 Thou/mm3 (1.8-7.7); Neutrophils % (Auto) 62 % (37-80); Nucleated Red Blood Cell % 0 /100 WBC (0); Platelet Count 224 Thou/mm3 (140-440); RDW Standard Deviation 41.8 fL (35.1-43.9); Red Blood Count 5.97 Miln/mm3 (4.50-5.90); White Blood Count 7.8 Thou/mm3 (3.8-10.6)
[2024-02-26 06:44] LABS: Anion Gap 11 (7-16); BUN/Creatinine Ratio 12 Ratio (12-20); Blood Urea Nitrogen 12 mg/dL (9-23); Calcium 9.6 mg/dL (8.3-10.6); Carbon Dioxide 23.6 mMol/L (20.0-31.0); Chloride 103 mMol/L (98-107); Estimated Creatinine Clearance 81.4 mL/min (>60); Glucose 78 mg/dL (74-106); Magnesium 2.2 mg/dL (1.6-2.6); Osmolality,Calculated 274 (275-295); Potassium 3.8 mMol/L (3.4-5.1); Sodium 138 mMol/L (136-145); eGFR > 60 See Note
--- NOTE | 2024-02-26 07:25 | ESPR_ITS ---
<Statement entered by Vidal Stephens MD - 02/27/24 07:43> Patient was seen and examined by me personally. I agree with most of the assessment and plan as discussed with the underwriting internship physician, and my attending, Dr. Charles. Patient underwent MEGAN, with negative bubble study. Will continue hypercoag work up. Discussed with set builder, who recommends bone marrow biopsy, therefore plavix held. Additionally recommended therapeutic phlebotomy, which was done. Continue to monitor CBC. Will continue ASA and high-intensity statin for CVA, per neuro recs. Vidal Stephens MD, PGY-3 Documentation for date of: 02/26/24 Subjective Subjective Interval history: No acute overnight event. Left lower extremity numbness improving. Tolerating oral diet. Denies fever, chills, headaches, chest pain, sob, cough, GI or urinary symptoms. Exam Vital Signs Temp Pulse Resp BP Pulse Ox O2 Del Method 97.3 F 89 21 H 126/86 H 97 Room Air 02/26/24 04:00 02/26/24 04:00 02/26/24 04:00 02/26/24 04:00 02/26/24 04:00 02/26/24 04:00 Narrative Exam General: A/O x3, no acute distress, well-nourished, well-developed Eyes: PERRL, EOMI. Anicteric, vision grossly intact. Ears: No ear pain, no ear discharge, Hearing grossly intact. Nose: No nasal discharge. Mouth/Throat: Moist mucous membranes, poor denation, no redness, no lesions. Neck: Neck supple, non-tender, no cervical lymphadenopathy. Lungs: Clear WILIAN to auscultation and percussion, No accessory muscle use. Cardio: Normal S1/S2, regular rhythm, no murmurs, no JVD assessed. Abdomen: Soft, non-tender, no palpable masses, peristalsis present, no guarding or rebound. Extremities: Symmetrical, no significant deformities, no peripheral edema , non-tender, peripheral pulses presents. Skin: No rashes, no lesions, warm to touch. multiple tattoos throughout upper body. Neuro: Able to move all extremities, strength bilateral lower extremities 4/4, strength bilateral upper extremities 4/4, decreased sensation on left side of face, unequal sensation on left upper extremity and left lower extremity when compared to right upper extremity and right lower extremity respectively. No facial asymmetry and clear speech. Psych: Cooperative, appropriate mood and effect. Objective Labs 02/27/24 05:30 02/27/24 05:30 Labs: Laboratory Results - last 24 hr 02/25/24 02/25/24 02/26/24 06:06 13:44 04:37 WBC 7.8 RBC 5.97 H Hgb 18.8 H* Hct 54.9 H MCV 92 MCH 31.5 MCHC 34.2 RDW Std Deviation 41.8 Plt Count 224 Neut % (Auto) 62 Lymph % (Auto) 22 [place] % (Auto) 10 Eos % (Auto) 6 Baso % (Auto) 1 Neut # (Auto) 4.8 Lymph # (Auto) 1.7 [place] # (Auto) 0.7 Eos # (Auto) 0.4 Baso # (Auto) 0.0 Immature Gran # (Auto) 0.02 H Absolute Nucleated RBC 0.00 Immature Gran % 0 Nucleated RBC % 0 Puncture Site Left Radial ABG pH 7.39 ABG pCO2 40 ABG pO2 84 ABG HCO3 25 ABG O2 Saturation 97 ABG Base Excess 0 FiO2 21 Sodium 138 Potassium 3.8 Chloride 103 Carbon Dioxide 23.6 Anion Gap 11 BUN 12 Creatinine 1.0 Estim Creat Clear Calc 81.4 eGFR > 60 BUN/Creatinine Ratio 12 Glucose 78 Calculated Osmolality 274 L Calcium 9.6 Magnesium 2.2 Lactate Dehydrogenase 185 Vitamin B12 686 ABG Interpretation ABG results: 02/25/24 13:44 ABG pH 7.39 ABG pCO2 40 ABG pO2 84 ABG HCO3 25 ABG O2 Saturation 97 ABG Base Excess 0 Quality Measures Quality Measures VTE prophylaxis and stroke Suspected type of Stroke: Acute Ischemic Tenecteplase given: Reason(s) Tenecteplase not given: Outside the time window not given Rehab services: PT evaluation ordered and Speech Language Pathology eval ordered VTE Prophylaxis: mechanical Antithrombotic by day 2:: ordered Statin ordered: >75 y/o moderate or high intensity dose Anticoagulation ordered for A-fib or flutter (current or hx): ordered Assessment & Plan Assessment Current Active Medications: Generic Name Dose Route Start Last Admin Trade Name Freq PRN Reason Stop Dose Admin Acetaminophen 650 mg 02/21/24 20:29 Acetaminophen 325 Mg Tablet PO 03/22/24 20:28 Q6H PRN PAIN OR FEVER > 101 Amlodipine Besylate 5 mg 02/25/24 21:00 02/25/24 20:56 Amlodipine Besylate 5 Mg Tablet PO 03/26/24 20:59 5 mg HS MINO Administration Aspirin 81 mg 02/24/24 09:00 02/25/24 09:04 Aspirin Ec 81 Mg Tabec PO 03/25/24 08:59 81 mg QDAY MINO Administration Atorvastatin Calcium 80 mg 02/23/24 21:00 02/25/24 20:55 Atorvastatin Calcium 20 Mg Tablet PO 03/24/24 20:59 80 mg HS MINO Administration Clopidogrel Bisulfate 75 mg 02/24/24 09:00 02/25/24 09:04 Clopidogrel Bisulfate 75 Mg Tablet PO 03/25/24 08:59 75 mg QDAY MINO Administration Folic Acid 1 mg 02/22/24 10:05 02/25/24 20:56 Folic Acid 1 Mg Tablet PO 02/27/24 10:04 1 mg BID MINO Administration Heparin Sodium (Porcine) 5,000 unit 02/24/24 21:00 02/25/24 20:59 Heparin Sod Inj 5000 Unit/Ml Vial SC 03/09/24 20:59 5,000 unit BID MINO Administration Lactated Ringer's 1,000 mls @ 150 mls/hr 02/26/24 07:24 Lactated Ringers IV 03/27/24 07:23 .[id number] [facility] Lisinopril 5 mg 02/25/24 08:00 02/25/24 09:05 Lisinopril 2.5 Mg Tablet PO 03/25/24 12:44 5 mg QDAY MINO Administration Lorazepam 0.5 mg 02/22/24 09:42 Lorazepam 0.5 Mg Tablet PO 02/27/24 09:41 Q4HR PRN CIWA Score 2-6 Lorazepam 1 mg 02/22/24 09:42 Lorazepam 0.5 Mg Tablet PO 02/27/24 09:41 Q4HR PRN CIWA SCORE 7-11 Lorazepam 2 mg 02/22/24 09:42 Lorazepam 0.5 Mg Tablet PO 02/27/24 09:41 Q4HR PRN CIWA SCORE 12-15 Ondansetron HCl 4 mg 02/21/24 20:29 Ondansetron Inj 2 Mg/Ml Inj 2 Ml IV 03/22/24 20:28 Q6H PRN NAUSEA OR VOMITING Protocol Pantoprazole Sodium 40 mg 02/22/24 09:00 02/25/24 09:04 Pantoprazole 40 Mg Tablet PO 03/23/24 08:59 40 mg QDAY MINO Administration Sennosides 1 tab 02/22/24 09:00 02/25/24 09:04 Senna Tablet PO 03/23/24 08:59 1 tab QDAY MINO Administration Protocol Thiamine HCl 100 mg 02/22/24 10:05 02/25/24 20:57 Thiamine 100 Mg Tablet PO 02/27/24 10:04 100 mg BID MINO Administration Plan In summary: 43-year-old male PMHx of substance use disorder, [id number] tobacco user, possible HTN not on meds currently, admitted for acute CVA/TIA rule out and hypertensive emergency. MRI showed 20 mm right thalamic infarct. Patient started on AMLODIPINE, LISINOPRIL, ASPIRIN, CLOPIDOGREL and statin. Patient currently being worked up for polycythemia. We are holding PLAVIX and HEPARIN for bone marrow biopsy on . Pending JAK2 mutation, appropriate level, protein YAM CURER, factor V and anticoag's panel. MEGAN was done which is negative. # Acute ischemic CVA # Right thalamic infarct # Dizziness # Left lower extremity paresthesia Symptoms overall improving Presents with left-sided numbness and weakness, outside window for tPA CT head and CTA head neck negative for acute pathology MRI demonstrated 20 mm right thalamic infarct 02/20. Echo negative bubble study no evidence of PFO or ASD, EF 65-70% Passed bedside swallowing Neurology recommended Holter monitor along with echo which was already done, ASPIRIN and PLAVIX and high intensity statin Patient cleared by physical therapy ? Neurochecks every 4 hours ? Head elevation greater than 30 degrees ? Continue ASPIRIN 80 mg daily ? Holding PLAVIX for biopsy on ? Continue statin ? Temperature control ? Euglycemic state ? Physical therapy: Patient independent # Hypertensive emergency Patient presented with blood pressure with systolics in the 200s In ED patient was given 20 of IV push hydralazine, and was placed on nicardipine drip Patient does not follow-up outpatient with PCP BP continue within normal limits ? Continue LISINOPRIL 5 mg daily ? 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 Patient is an active smoker >20pack year hx, which also may contribute to his erythrocytosis. Denies steroid use. Renal ultrasound for possible secondary causes of erythrocytosis : negative study. 02/24 H&H improving : Hb 21 --> 18.9 and Hct 59 --> 55 He continues to complain of dizziness, headaches Hematology, Dr Farrell, recommended pending marrow biopsy and phlebotomy Phlebotomy was done today 12/26 ? Hypercoagulability workup pending: JAK2, erythropoietin levels, blood smear, antiphospholipid antibodies, Antithrombin III, factor V Leiden, homocysteine, lupus anticoagulant, protein C, protein S ? Started fluids 1 L LR at 150 cc/HR ? Pending bone marrow biopsy on # Alcohol use disorder # Hyperbilirubinemia Patient states he drinks 5-6 beers a day Last drink was day prior to admission 5?points Child Class A Life Expectancy 9?points MELD Score (2016)* 1.9% Estimated 3-Month Mortality Patient appears slightly listless and restless on examination but denies having any diaphoresis/visual or auditory hallucinations/tongue fasciculations or tremors currently Ultrasound liver - Negative for cholelithiasis, normal CBD. Gallbladder sludge noted. Plan: CIWA protocol in place Maddrey score - does nto recommend steroids at this time Banana bag alternative x1 given IV Folic and Thiamine supplementation Hospital Management: Dispo: Pending stroke workup; telemetry Bowel: Senna as needed Diet: Regular GI prophylaxis: Not required DVT prophylaxis: Heparin SC q12 Code status: Full Patient case was discussed with attending, Dr. Laura Charles DO and senior residents Dr. Stephens and Dr. Caba. Abbey Flores DO PGYI Attending Provider Attestation/Addendum I, Charlene Charles DO, attest that I was physically present for the [place] portions of the service and evaluated the patient with the resident and I reviewed and discussed the case with the resident and agree with the resident's findings and plans of care as documented above Patient seen and evaluated this afternoon. MEGAN was negative for any thrombi or vegetations. Case discussed in detail with hematology. Recommends therapeutic phlebotomy with removal of 250cc of blood with 250cc of IV fluid given in other arm at same time. Plan for IR guided Bone marrow biopsy. However, cannot be done until due to plavix last given on 02/24. OK to continue aspirin per IR. Patient agreeable to undergo biopsy. All questions and concerns addressed at bedside. Continue with current management otherwise.
--- NOTE | 2024-02-26 09:04 | ESPR_ITS ---
Documentation for date of: 02/26/24 Subjective Subjective Interval history: Patient was seen and examined this morning at bedside. Patient was n.p.o. overnight for MEGAN today. Patient underwent successful MEGAN with the following findings: Negative bubble study. No evidence of PFO or LA/RUIZ thrombus. Normal LV size and function. Estimated EF 60-65% Normal RV size and function. Trace MR, TR. Patient states that he still feels numb on the left lower extremity as well as the left upper extremity and some numbness is still present on the left side of his face. Patient's blood pressure was around 120s over 80s this morning. Patient was seen by Dr. Farrell, dredging inspector who recommended to do a bone marrow aspiration and do flow cytometry. He also stated that they wanted to do phlebotomy they should take around 250 mL of blood from 1 arm and give 250 mL of normal saline through the other arm. He also recommended to hydrate the patient well. Exam Vital Signs Temp Pulse Resp BP Pulse Ox O2 Del Method 96.7 F L 69 18 128/95 H 98 Room Air 02/26/24 07:41 02/26/24 07:41 02/26/24 07:41 02/26/24 07:41 02/26/24 07:41 02/26/24 07:41 Narrative Exam General: A/O x3, no acute distress, well-nourished, well-developed Eyes: PERRL, EOMI. Anicteric, vision grossly intact. Ears: No ear pain, no ear discharge, Hearing grossly intact. Nose: No nasal discharge. Mouth/Throat: Moist mucous membranes, poor denation, no redness, no lesions. Neck: Neck supple, non-tender, no cervical lymphadenopathy. Lungs: Clear WILIAN to auscultation and percussion, No accessory muscle use. Cardio: Normal S1/S2, regular rhythm, no murmurs, no JVD assessed. Abdomen: Soft, non-tender, no palpable masses, peristalsis present, no guarding or rebound. Extremities: Symmetrical, no significant deformities, no peripheral edema , non-tender, peripheral pulses presents. Skin: No rashes, no lesions, warm to touch. multiple tattoos throughout upper body. Neuro: Able to move all extremities, strength bilateral lower extremities 4/4, strength bilateral upper extremities 4/4, decreased sensation on left side of face, unequal sensation on left upper extremity and left lower extremity when compared to right upper extremity and right lower extremity respectively. No facial asymmetry and clear speech. Psych: Cooperative, appropriate mood and effect. Objective Labs 02/27/24 05:30 02/27/24 05:30 Labs: Laboratory Results - last 24 hr 02/25/24 02/25/24 02/26/24 06:06 13:44 04:37 WBC 7.8 RBC 5.97 H Hgb 18.8 H* Hct 54.9 H MCV 92 MCH 31.5 MCHC 34.2 RDW Std Deviation 41.8 Plt Count 224 Neut % (Auto) 62 Lymph % (Auto) 22 [place] % (Auto) 10 Eos % (Auto) 6 Baso % (Auto) 1 Neut # (Auto) 4.8 Lymph # (Auto) 1.7 [place] # (Auto) 0.7 Eos # (Auto) 0.4 Baso # (Auto) 0.0 Immature Gran # (Auto) 0.02 H Absolute Nucleated RBC 0.00 Immature Gran % 0 Nucleated RBC % 0 Puncture Site Left Radial ABG pH 7.39 ABG pCO2 40 ABG pO2 84 ABG HCO3 25 ABG O2 Saturation 97 ABG Base Excess 0 FiO2 21 Sodium 138 Potassium 3.8 Chloride 103 Carbon Dioxide 23.6 Anion Gap 11 BUN 12 Creatinine 1.0 Estim Creat Clear Calc 81.4 eGFR > 60 BUN/Creatinine Ratio 12 Glucose 78 Calculated Osmolality 274 L Calcium 9.6 Magnesium 2.2 Lactate Dehydrogenase 185 Vitamin B12 686 Misc Test Result Cancelled ABG Interpretation ABG results: 02/25/24 13:44 ABG pH 7.39 ABG pCO2 40 ABG pO2 84 ABG HCO3 25 ABG O2 Saturation 97 ABG Base Excess 0 Quality Measures Quality Measures VTE prophylaxis and stroke Suspected type of Stroke: Acute Ischemic Tenecteplase given: Reason(s) Tenecteplase not given: Outside the time window not given Rehab services: PT evaluation ordered VTE Prophylaxis: pharmaceutical Antithrombotic by day 2:: not indicated (describe) Statin ordered: <75 y/o high intensity dose Anticoagulation ordered for A-fib or flutter (current or hx): not indicated Assessment & Plan Assessment Current Active Medications: Generic Name Dose Route Start Last Admin Trade Name Freq PRN Reason Stop Dose Admin Acetaminophen 650 mg 02/21/24 20:29 Acetaminophen 325 Mg Tablet PO 03/22/24 20:28 Q6H PRN PAIN OR FEVER > 101 Amlodipine Besylate 5 mg 02/25/24 21:00 02/25/24 20:56 Amlodipine Besylate 5 Mg Tablet PO 03/26/24 20:59 5 mg HS MINO Administration Aspirin 81 mg 02/24/24 09:00 02/25/24 09:04 Aspirin Ec 81 Mg Tabec PO 03/25/24 08:59 81 mg QDAY MINO Administration Atorvastatin Calcium 80 mg 02/23/24 21:00 02/25/24 20:55 Atorvastatin Calcium 20 Mg Tablet PO 03/24/24 20:59 80 mg HS MINO Administration Clopidogrel Bisulfate 75 mg 02/24/24 09:00 02/25/24 09:04 Clopidogrel Bisulfate 75 Mg Tablet PO 03/25/24 08:59 75 mg QDAY MINO Administration Folic Acid 1 mg 02/22/24 10:05 02/25/24 20:56 Folic Acid 1 Mg Tablet PO 02/27/24 10:04 1 mg BID MINO Administration Heparin Sodium (Porcine) 5,000 unit 02/24/24 21:00 02/25/24 20:59 Heparin Sod Inj 5000 Unit/Ml Vial SC 03/09/24 20:59 5,000 unit BID MINO Administration Sodium Chloride 1,000 mls @ 150 mls/hr 02/26/24 08:06 Ns IV 02/27/24 08:05 .Q6H40M MINO Lisinopril 5 mg 02/25/24 08:00 02/25/24 09:05 Lisinopril 2.5 Mg Tablet PO 03/25/24 12:44 5 mg QDAY MINO Administration Lorazepam 0.5 mg 02/22/24 09:42 Lorazepam 0.5 Mg Tablet PO 02/27/24 09:41 Q4HR PRN CIWA Score 2-6 Lorazepam 1 mg 02/22/24 09:42 Lorazepam 0.5 Mg Tablet PO 02/27/24 09:41 Q4HR PRN CIWA SCORE 7-11 Lorazepam 2 mg 02/22/24 09:42 Lorazepam 0.5 Mg Tablet PO 02/27/24 09:41 Q4HR PRN CIWA SCORE 12-15 Ondansetron HCl 4 mg 02/21/24 20:29 Ondansetron Inj 2 Mg/Ml Inj 2 Ml IV 03/22/24 20:28 Q6H PRN NAUSEA OR VOMITING Protocol Pantoprazole Sodium 40 mg 02/22/24 09:00 02/25/24 09:04 Pantoprazole 40 Mg Tablet PO 03/23/24 08:59 40 mg QDAY MINO Administration Sennosides 1 tab 02/22/24 09:00 02/25/24 09:04 Senna Tablet PO 03/23/24 08:59 1 tab QDAY MINO Administration Protocol Thiamine HCl 100 mg 02/22/24 10:05 02/25/24 20:57 Thiamine 100 Mg Tablet PO 02/27/24 10:04 100 mg BID MINO Administration Plan 43-year-old male with no relevant past medical history other than alcohol abuse disorder (sixpack of beers per day) and active smoker (half pack a day) was admitted to the hospital on 02/21/2024 due to stroke-like symptoms and hypertensive emergency. 1. Right thalamic infarct 2. Dizziness 3. Left upper and lower extremity paresthesia 4. Dysarthria ?Patient came in on 02/21/2024 with complaints of dizziness, left upper and lower extremity numbness as well as weakness on the left lower extremity, as well as slurred speech. ?Brain MRI on 02/23/2024 showed a 20 mm acute infarct of the right thalamus ?There is no clear reason as of now for patient's stroke -Patient denies any kind of swallowing problems, esophageal interventions or prior surgeries. -Patient denies any kind of gastric ulcer bleeding, hematemesis, or hematochezia. -Patient denies any issue with anesthesia priorly. -Patient explained all risks, benefits, and alternative of MEGAN including, but not limited to risk of perforation, bleeding, respiratory failure secondary to sedation, injury to teeth, gum, esophagus, or stomach. Patient understands all risks and benefits and provided consent for the procedure. -Patient underwent successful MEGAN with the following findings: Negative bubble study. No evidence of PFO or LA/RUIZ thrombus. Normal LV size and function. Estimated EF 60-65% Normal RV size and function. Trace MR, TR. Plan: ?Recommended to continue DAPT and high intensity statin. ?Recommend to follow neurologist recommendations ? From cardiology standpoint patient can be discharged ? Cardiology will sign off, please call us with any questions or doubts about the patient. 5. Hypertensive emergency ?Initial blood pressure was 209/132 ?Patient had focal neurological symptoms ?Initially patient had no chest pain, chest discomfort, or shortness of breath. ?Initial EKG showed sinus rhythm ?Blood pressure this morning 128/95 Plan: ?Recommend continuing lisinopril 5 mg daily and amlodipine 10mg at night ?Recommend IV labetalol with parameters of SBP above 200, or DBP above 110 6. Erythrocytosis 7. Active smoker ?Patient's hemoglobin on admission was 21.2 and hematocrit 59.9 ?Patient smokes half a pack of cigarette every day which could explain the erythrocytosis ?DDx erythrocytosis secondary to cigarette smoking versus ?I counseled the patient extensively about need to quit smoking and he showed desire to quit. ?Hemoglobin today 18.8 and hematocrit 54.9 ?Patient's erythrocytosis percent and increased risk of thrombosis given his hypercoagulable state which could have caused his most recent stroke Plan: ?Recommend to follow-up on hematological workup included immunology ? Dr. Farrell, dredging inspector is following the case. Recommended to phlebotomy 250 mL of blood taken off from one arm and 250 mL of normal saline given in the other arm. ? Patient will have bone marrow biopsy and flow cytometry. ?Continue management as per primary care team 8. Alcohol abuse disorder 9. Hyperbilirubinemia 10. Hemangioma ?Patient admits to drinking 6 to 7 cans of beers every day ?Bilirubin on admission was 1.2 and up trended to 2.1 yesterday, not ordered on today's labs ?Liver ultrasound was unremarkable other than an incidental hemangioma finding ?Continue management as per primary care team Continue rest of management as per primary team. We are grateful to be able to participate in Ms. Peter's care. Thank you for the consult Plan of care discussed with attending D[employer]or, Dr Roosevelt Diane MD PGY-1 Attending Provider Attestation/Addendum I have personally seen and examined the patient separately on the above date of service and discussed the plan of care with the resident. I reviewed the resident Dr. Vanegas consultation progress note and agree with the resident findings and plan in the note above and have also edited the documentation to reflect my findings and plan. Gil Albert M.D. Interventional Cardiology
[2024-02-26] MEDS: BENZOCAINE 20% (Hurricaine) SPRAY 1 DOSE TOP (13:07)
[2024-02-26] MEDS: fentaNYL CIT INJ 50 mCg/ML AMP 2ML 100 MCG IVP (13:08)
[2024-02-26] MEDS: MIDAZOLAM INJ 1 MG/ML VIAL 2 ML 6 MG IV (13:08)
--- NOTE | 2024-02-26 14:27 | PC.NURSE ---
Addendum entered by Brandi Jones RN 02/26/24 14:54: per dr guaman, patient to hold aspirin, plavix and heparin if patient needs ct guided bone marrow biopsy, pt can have bone marrow bx done of holding blood thinners. Original Note: patient is awake, alert, breathing unlabored, s/p aure under iv sedation, report given to Lucy BOWSER, patient transferred back to room 275 with tele box
[2024-02-26] MEDS: Lisinopril 2.5 MG TABLET 5 MG PO (15:27)
[2024-02-26] MEDS: SODIUM CHLORIDE 0.9% 1000 ML 1,000 ML 150 ML IV ×2 (15:27→19:56)
--- NOTE | 2024-02-26 15:34 | ESCONSULT_ITS ---
RE: RUTHIE WALTERS : 1980 DATE OF CONSULTATION: 02/25/2024 REFERRING PHYSICIAN: Dr. Paola Toney REASON FOR CONSULTATION: 1. Polycythemia 2. Cerebrovascular accident HISTORY OF PRESENT ILLNESS: Mr. Walters is a 43-year-old gentleman with no significant past medical history. He presented to the emergency room after he experienced dizziness, left leg and shoulder and side numbness and difficulty ambulating. His symptoms started at 1:30 p.m. after he woken up from sleep. He mentioned that he has associated dizziness and headache, but denies any prior similar episode, loss of consciousness, seizure, vision change, chest pain, irregular heartbeat, shortness of breath or palpitations. The patient was hypertensive in emergency room. His blood pressure was 110/132. Other signs were normal. Blood showed hemoglobin of 21.2, hematocrit was 59.9. Rest of the lab were reasonably within normal limits. His electrocardiogram showed sinus tachycardia. He was diagnosed with a stroke. A CT scan showed multiple small old basal ganglia infarct, but no hemorrhage, mass or midline shift. CTA of the head and neck showed no enlarged vascular occlusion. The patient was admitted for further evaluation and because of elevated hemoglobin and hemoconcentration, this consultation is obtained. The patient mentioned that he has never seen a doctor for a long, long time and he does not take any kind of medication. He denies using any kind of supplement for the health food restore. He denies epistaxis, cough, or hemoptysis. He denies nausea, vomiting, constipation, diarrhea, hematemesis, melena, hematochezia. He denies dysuria or change in skeletomuscular pain. PAST MEDICAL HISTORY: As mentioned above, there is no other information. SOCIAL HISTORY: He smoked one pack since high school and he also drank 5 to 6 beer daily since that time. He denies use of illicit drugs. 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 FAMILY HISTORY: There is no history of cancer or blood disorder in the family. ALLERGIES: NONE KNOWN. PHYSICAL EXAMINATION: GENERAL: He is alert. He is afebrile. He is complaining of numbness in his leg, a little bit in his hand and on the left side of his trunk area. VITAL SIGNS: His vitals are stable. HEENT: Pupil are reactive to light and accommodation. Sclerae are nonicteric. NECK: Supple. There is no JVD or palpable mass. LUNGS: Good air entry bilaterally. They are clear to auscultation and percussion. HEART: Regular. ABDOMEN: Soft. Bowel sounds are present. There is no obvious organomegaly. EXTREMITIES: 3+ pedal pulses. There is no cyanosis or edema. SENIOR BIOSTATISTICIAN: The patient will move his extremities and follows simple command. LABORATORY DATA: His blood work done today has a WBC count of 6.8, RBC count is 5.93, hemoglobin is 18.9, hematocrit 55.1, and platelet count of 222,000. Differential grossly within normal limit. On 02/20 his WBC count was 5.7, RBC count was 6.68, hemoglobin 21.2, hematocrit 59.9 with normal indices, platelet count was 222,000. His chemistry panel on 02/23/2024, sodium of 138, potassium was 4.1, chloride was 102, BUN 10, creatinine is 1.1, GFR more than 60. His bilirubin was 1.9. Liver enzymes are grossly within normal limits. His total protein is 7.5, albumin is 4.8, globulin 2.7, and his chemistry panel on 02/24/2024 has a bilirubin of 2.1. Urine has no infection. Other labs are pending. ASSESSMENT AND PLAN: I agree with the present plan of treatment. I will go ahead and order some blood tests and will request Dr. Ly to do the bone marrow aspiration and the blood should be sent for flow cytometry. The patient has elevated hemoglobin and hematocrit and will have a working diagnosis of polycythemia. Phlebotomy has a role, but that just has a limited benefit, but if somebody wants to do phlebotomy, then they should take out 250 mL of blood from one side and give him 250 mL of normal saline through other arm during the phlebotomy, but we should go ahead and in the meantime, we should hydrate him. I will follow this patient with you and write order regarding to clinical station. The patient did ask a simple question and they were answered to his satisfaction. After a long discussion, the patient verbally acknowledged that he understands these and elected to proceed with the plan and I will do so and keep you apprised of his overall condition. I thank you, Dr. Dawna Guevara for letting me participate in the care of this interesting patient. If you have any questions, please feel free to contact me. DT: 13:06:01 TT: 15:47:00 Ref: [id number] - TID: [id number] MTDD
--- NOTE | 2024-02-26 15:40 | PC.NURSE ---
phlebotomy done at bedside by Lena BOWSER from [facility] ,started time 1515,completed @ 1520.pt.tolerated procedure well.VS before procedure 97.8-69-17,153/105.97% RA .VS after procedure 97.4-77-18-137/99 96% RA.removed 250 ml blood,received 250 ml NS.
--- NOTE | 2024-02-26 17:52 | ESPR_ITS ---
RE: RUTHIE WALTERS : 1980 DATE OF SERVICE: 02/26/2024 SUBJECTIVE: Mr. Walters is a 43-year-old gentleman with myeloproliferative disorder/polycythemia. He had a phlebotomy done today. He mentioned that he does not feel anything different, but denies any other symptoms. PHYSICAL EXAMINATION: General: He is alert, in no apparent distress. Vital Signs: He is afebrile. vitals are stable. HEENT: Pupil are reactive to light and accommodation. Sclerae are nonicteric. Neck: Supple. There is no JVD or palpable mass. Lungs: There is good air entry bilaterally. They are clear to auscultation and percussion. Heart: Regular. Abdomen: Soft. Bowel sounds are present. Extremities: There is no cyanosis or edema seen as the patient is able to move his extremities and follow symptoms. PLAN AND RECOMMENDATIONS: His blood work today showed WBC count 7.8, hemoglobin 18.8, hematocrit 54.9 with normal indices, platelet count 224,000, sodium of 138, potassium 3.8, chloride is 103, BUN (blood urea nitrogen) 12, creatinine is 1, GFR (glomerular filtration rate) more than 60, magnesium is 2.2. His ABD done today has a pH of 7.39. PCO2 is 40. PO2 is 84. Bicarb is 25. Oxygen saturation is 97%. on room air. He will be scheduled for bone marrow aspiration and hopefully send aspirated blood for flow cytometry. DT: 16:50:40 TT: 17:09:00 Ref: [id number] - TID: [id number] [facility]
--- NOTE | 2024-02-26 21:05 | ESPR_ITS ---
Documentation for date of: 02/26/24 Subjective Subjective Interval history: Patient is in telemetry. Continues to have left leg monoparesis and paresthesia but significantly improved since admission. Exam - Neurology Vital Signs Temp Pulse Resp BP Pulse Ox O2 Del Method O2 Flow Rate 97.7 F 81 14 121/85 H 97 Room Air 3 02/26/24 20:00 02/26/24 20:00 02/26/24 20:00 02/26/24 20:00 02/26/24 20:00 02/26/24 20:00 02/26/24 13:34 Narrative Exam GENERAL APPEARANCE: Well hydrated, well-nourished in no acute distress. HEENT: Normocephalic, atraumatic, extraocular movements intact. Pupils: Equal reacting to light and accommodation NECK: Supple, no JVD or bruits. CARDIOVASULAR: Heart: S1, S2 heard, regular without S3-S4 or murmur no rubs or gallops. LUNGS/CHEST: Clear to auscultation bilaterally. No rails, rhonchi, or wheezing. Normal inspection. ABDOMEN: Soft, nontender, with normal bowel sounds. No pulsatile masses. No rebound, rigidity, or guarding. Normal inspection and palpation. EXTREMITIES: Normal inspection and palpation. No edema, clubbing or cyanosis. SKIN: Warm and dry without rashes. Normal inspection. MUSCULOSKELETAL: No cervical, thoracic, lumbar or midline bony tenderness. Normal inspection. NEURO: Alert, awake and oriented x3. Cranial nerves: II through XII grossly intact. Speech and language: Normal with no dysarthria or dysphasia. Motor system: Tone and bulk: Normal: Strength: 5 out of 5 in all 4 extremities; No pronator drift noted. Deep tendon reflexes: 2+ bilaterally symmetrical. Plantar reflex: Downgoing bilaterally. Sensory system: Intact to all modalities of sensation bilaterally. Coordination: Intact to [id number] and [id number] test bilaterally. No ataxia, no dysmetria, or dysdiadochokinesia noted. No intention tremors noted. Gait: Walked with a walker. No signs of meningeal irritation noted. PSYCHIATRIC: Normal mood and affect. Objective Labs 02/26/24 04:37 02/26/24 04:37 Labs: Laboratory Results - last 24 hr 02/25/24 02/26/24 06:06 04:37 WBC 7.8 RBC 5.97 H Hgb 18.8 H* Hct 54.9 H MCV 92 MCH 31.5 MCHC 34.2 RDW Std Deviation 41.8 Plt Count 224 Neut % (Auto) 62 Lymph % (Auto) 22 [place]hing % (Auto) 10 Eos % (Auto) 6 Baso % (Auto) 1 Neut # (Auto) 4.8 Lymph # (Auto) 1.7 [place]hing # (Auto) 0.7 Eos # (Auto) 0.4 Baso # (Auto) 0.0 Immature Gran # (Auto) 0.02 H Absolute Nucleated RBC 0.00 Immature Gran % 0 Nucleated RBC % 0 Sodium 138 Potassium 3.8 Chloride 103 Carbon Dioxide 23.6 Anion Gap 11 BUN 12 Creatinine 1.0 Estim Creat Clear Calc 81.4 eGFR > 60 BUN/Creatinine Ratio 12 Glucose 78 Calculated Osmolality 274 L Calcium 9.6 Magnesium 2.2 Vitamin B12 686 Misc Test Result Cancelled ABG Interpretation ABG results: 02/25/24 13:44 ABG pH 7.39 ABG pCO2 40 ABG pO2 84 ABG HCO3 25 ABG O2 Saturation 97 ABG Base Excess 0 Assessment & Plan Assessment and plan (1) Acute CVA (cerebrovascular accident): Status: Acute Assessment and plan: With left leg monoparesis and paresthesia MRI brain showed right thalamic infarct Echocardiogram: Normal study Underwent transesophageal echocardiogram : negative Needs extended Holter monitoring to evaluate for cardiac arrhythmias Follow-up with hypercoagulopathy workup, Continue with aspirin 81 mg and Plavix 75 mg for prophylaxis along with high intensity statin. He needs to take atleast ASA 81 mg if he is going to have Bone marrow biopsy. (2) Hypertensive urgency: Status: Resolved Assessment and plan: Continue with aggressive blood pressure management (3) Polycythemia: Status: Acute Assessment and plan: Needs hematology evaluation for periodic phlebotomy. Recommended Bone marrow biopsy.
[2024-02-26] MEDS: FOLIC ACID 1 MG TABLET PO (22:06)
[2024-02-26] MEDS: ATORVASTATIN CALCIUM 20 MG TABLET 80 MG PO (22:06)
[2024-02-26] MEDS: amLODIPine BESYLATE 5 MG TABLET PO (22:06)
[2024-02-26] MEDS: THIAMINE 100 MG TABLET PO (22:07)
[2024-02-27] VITALS (8 sets, daily range): BP systolic 110–130; BP diastolic 73–96; PULSE 60–97; RESP 15–20; TEMP 36.4–36.9; O2SAT 93–98
[2024-02-27] MEDS: SODIUM CHLORIDE 0.9% 1000 ML 1,000 ML 150 ML IV (02:40)
[2024-02-27 06:01] LABS: Basophils % (Auto) 0 % (0-2.5); Eosinophils # (Auto) 0.4 Thou/mm3 (0.0-0.5); Eosinophils % (Auto) 6 % (0-10); Hematocrit 48.4 % (41.0-53.0); Hemoglobin 16.5 g/dL (13.5-16.0); Immature Granulocytes % (Auto) 0 % (0-0); Immature Granulocytes Auto 0.02 Thou/mm3 (0.00-0.00); Lymphocytes # (Auto) 1.2 Thou/mm3 (1.0-4.8); Lymphocytes % (Auto) 20 % (10-50); Mean Corpuscular HGB Conc 34.1 g/dl (31.0-37.0); Mean Corpuscular Hemoglobin 31.7 pg (25.0-35.0); Mean Corpuscular Volume 93 fL (80-100); Monocytes # (Auto) 0.7 Thou/mm3 (0.0-0.8); Monocytes % (Auto) 10 % (0-12); Neutrophils # (Auto) 3.9 Thou/mm3 (1.8-7.7); Neutrophils % (Auto) 63 % (37-80); Nucleated Red Blood Cell % 0 /100 WBC (0); Platelet Count 183 Thou/mm3 (140-440); RDW Standard Deviation 42.1 fL (35.1-43.9); White Blood Count 6.2 Thou/mm3 (3.8-10.6)
[2024-02-27 06:31] LABS: Anion Gap 5 (7-16); BUN/Creatinine Ratio 10 Ratio (12-20); Blood Urea Nitrogen 9 mg/dL (9-23); Calcium 8.9 mg/dL (8.3-10.6); Carbon Dioxide 26.3 mMol/L (20.0-31.0); Chloride 108 mMol/L (98-107); Creatinine (Component) 0.9 mg/dL (0.6-1.3); Estimated Creatinine Clearance 90.4 mL/min (>60); Glucose 91 mg/dL (74-106); Magnesium 1.9 mg/dL (1.6-2.6); Osmolality,Calculated 276 (275-295); Potassium 4.3 mMol/L (3.4-5.1); Sodium 139 mMol/L (136-145); eGFR > 60 See Note
[2024-02-27] MEDS: ASPIRIN EC 81 MG TABEC PO (09:46)
[2024-02-27] MEDS: Lisinopril 2.5 MG TABLET 5 MG PO (09:46)
[2024-02-27] MEDS: THIAMINE 100 MG TABLET PO (09:46)
[2024-02-27] MEDS: SENNA TABLET 1 TAB PO (09:46)
[2024-02-27] MEDS: FOLIC ACID 1 MG TABLET PO (09:46)
[2024-02-27] MEDS: PANTOPRAZOLE 40 MG TABLET PO (09:46)
[2024-02-27] MEDS: HEPARIN SOD INJ 5000 UNIT/ML VIAL SC ×2 (09:47→20:21)
--- NOTE | 2024-02-27 14:41 | ESPR_ITS ---
<Statement entered by Tristian Caba MD - 02/27/24 16:18> Mr. Peter is a 43-year-old male admitted for acute ischemic CVA, right thalamus infarct confirmed on MRI brain. He continues to have residual left lower extremity paresthesia, however there is marked improvement in the paresis/motor symptoms. Neurology is consulted, recommendations appreciated. Patient underwent MEGAN, with negative bubble study. Pending results from hypercoag studies. Discussed with commercial appraiser, who recommends bone marrow biopsy, therefore plavix to be held for 3 days as per IR request. Additionally therapeutic phlebotomy ordered with marked improvement in the globin and hematocrit levels. Will continue ASA and high-intensity statin for CVA, per neurology recommendation. Aspirin to be held after midnight on , 02/29/2024, and preparation for bone marrow biopsy. Patient examined and case discussed with the team including attending physician. Note reviewed, I agree with the care plan as documented. - Tristian Caba MD, PGY 2 Documentation for date of: 02/27/24 Subjective Subjective Interval history: No acute overnight events. Patient doing well. Reports improved left lower extremity numbness. Ambulating with a walker. Tolerating oral intake. Denies fever, chills, headaches, chest pain, sob, cough, GI or urinary symptoms. Exam Vital Signs Temp Pulse Resp BP Pulse Ox O2 Del Method O2 Flow Rate 98.2 F 76 19 120/82 96 Room Air 3 02/27/24 12:00 02/27/24 12:00 02/27/24 12:00 02/27/24 12:02/27/24 12:00 02/27/24 12:00 02/26/24 13:34 Narrative Exam General: A/O x3, no acute distress, well-nourished, well-developed Eyes: PERRL, EOMI. Anicteric, vision grossly intact. Ears: No ear pain, no ear discharge, Hearing grossly intact. Nose: No nasal discharge. Mouth/Throat: Moist mucous membranes, poor denation, no redness, no lesions. Neck: Neck supple, non-tender, no cervical lymphadenopathy. Lungs: Clear WILIAN to auscultation and percussion, No accessory muscle use. Cardio: Normal S1/S2, regular rhythm, no murmurs, no JVD assessed. Abdomen: Soft, non-tender, no palpable masses, peristalsis present, no guarding or rebound. Extremities: Symmetrical, no significant deformities, no peripheral edema , non-tender, peripheral pulses presents. Skin: No rashes, no lesions, warm to touch. multiple tattoos throughout upper body. Neuro: Able to move all extremities, strength bilateral lower extremities 4/4, strength bilateral upper extremities 4/4, decreased sensation on left side of face, unequal sensation on left upper extremity and left lower extremity when compared to right upper extremity and right lower extremity respectively. No facial asymmetry and clear speech. Psych: Cooperative, appropriate mood and effect. Objective Labs 02/27/24 05:30 02/27/24 05:30 Labs: Laboratory Results - last 24 hr 02/27/24 05:30 WBC 6.2 RBC 5.20 Hgb 16.5 H D Hct 48.4 MCV 93 MCH 31.7 MCHC 34.1 RDW Std Deviation 42.1 Plt Count 183 D Neut % (Auto) 63 Lymph % (Auto) 20 [place] % (Auto) 10 Eos % (Auto) 6 Baso % (Auto) 0 Neut # (Auto) 3.9 Lymph # (Auto) 1.2 [place] # (Auto) 0.7 Eos # (Auto) 0.4 Baso # (Auto) 0.0 Immature Gran # (Auto) 0.02 H Absolute Nucleated RBC 0.00 Immature Gran % 0 Nucleated RBC % 0 Sodium 139 Potassium 4.3 D Chloride 108 H Carbon Dioxide 26.3 Anion Gap 5 L BUN 9 Creatinine 0.9 Estim Creat Clear Calc 90.4 eGFR > 60 BUN/Creatinine Ratio 10 L Glucose 91 Calculated Osmolality 276 Calcium 8.9 Phosphorus 3.0 Magnesium 1.9 ABG Interpretation ABG results: 02/25/24 13:44 ABG pH 7.39 ABG pCO2 40 ABG pO2 84 ABG HCO3 25 ABG O2 Saturation 97 ABG Base Excess 0 Quality Measures Quality Measures VTE prophylaxis and stroke Suspected type of Stroke: Acute Ischemic Tenecteplase given: Reason(s) Tenecteplase not given: Outside the time window not given Rehab services: PT evaluation ordered VTE Prophylaxis: mechanical Antithrombotic by day 2:: contraindicated (describe) (Bone marrow biopsy on ) Statin ordered: not ordered Anticoagulation ordered for A-fib or flutter (current or hx): not indicated Assessment & Plan Assessment Current Active Medications: Generic Name Dose Route Start Last Admin Trade Name Freq PRN Reason Stop Dose Admin Acetaminophen 650 mg 02/21/24 20:29 Acetaminophen 325 Mg Tablet PO 03/22/24 20:28 Q6H PRN PAIN OR FEVER > 101 Amlodipine Besylate 5 mg 02/25/24 21:00 02/26/24 22:06 Amlodipine Besylate 5 Mg Tablet PO 03/26/24 20:59 5 mg HS MINO Administration Aspirin 81 mg 02/27/24 09:00 02/27/24 09:46 Aspirin Ec 81 Mg Tabec PO 03/28/24 08:59 81 mg QDAY MINO Administration Atorvastatin Calcium 80 mg 02/23/24 21:00 02/26/24 22:06 Atorvastatin Calcium 20 Mg Tablet PO 03/24/24 20:59 80 mg HS MINO Administration Clopidogrel Bisulfate 75 mg 02/24/24 09:00 02/26/24 11:35 Clopidogrel Bisulfate 75 Mg Tablet PO 03/25/24 08:59 Not Given QDAY MINO Heparin Sodium (Porcine) 5,000 unit 02/24/24 21:00 02/27/24 09:47 Heparin Sod Inj 5000 Unit/Ml Vial SC 03/09/24 20:59 5,000 unit BID MINO Administration Lisinopril 5 mg 02/27/24 09:00 02/27/24 09:46 Lisinopril 2.5 Mg Tablet PO 03/28/24 08:59 5 mg QDAY MINO Administration Ondansetron HCl 4 mg 02/21/24 20:29 Ondansetron Inj 2 Mg/Ml Inj 2 Ml IV 03/22/24 20:28 Q6H PRN NAUSEA OR VOMITING Protocol Pantoprazole Sodium 40 mg 02/22/24 09:00 02/27/24 09:46 Pantoprazole 40 Mg Tablet PO 03/23/24 08:59 40 mg QDAY MINO Administration Sennosides 1 tab 02/22/24 09:00 02/27/24 09:46 Senna Tablet PO 03/23/24 08:59 1 tab QDAY MINO Administration Protocol Plan In summary: 43-year-old male PMHx of substance use disorder, 67-[id number] tobacco user, possible HTN not on meds currently, admitted for acute CVA/TIA rule out and hypertensive emergency. MRI showed 20 mm right thalamic infarct. Patient started on AMLODIPINE, LISINOPRIL, ASPIRIN, CLOPIDOGREL and statin. Patient currently being worked up for polycythemia. We are holding PLAVIX and HEPARIN for bone marrow biopsy on . Pending JAK2 mutation, appropriate level, protein MILLER FIRST, factor V and anticoag's panel. MEGAN was done which is negative. # Acute ischemic CVA # Right thalamic infarct # Dizziness # Left lower extremity paresthesia Symptoms overall improving Presents with left-sided numbness and weakness, outside window for tPA CT head and CTA head neck negative for acute pathology MRI demonstrated 20 mm right thalamic infarct 02/20. Echo negative bubble study no evidence of PFO or ASD, EF 65-70% Passed bedside swallowing Neurology recommended Holter monitor along with echo which was already done, ASPIRIN and PLAVIX and high intensity statin Patient cleared by physical therapy ? Neurochecks every 4 hours ? Head elevation greater than 30 degrees ? Continue ASPIRIN 80 mg daily ? Holding PLAVIX for biopsy on ? Continue statin ? Temperature control ? Euglycemic state ? Physical therapy: Patient independent # Hypertensive emergency Patient presented with blood pressure with systolics in the 200s In ED patient was given 20 of IV push hydralazine, and was placed on nicardipine drip Patient does not follow-up outpatient with PCP BP continue within normal limits ? Continue LISINOPRIL 5 mg daily ? 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 Patient active smoker, greater than 14-[id number]-[id number] history, likely contributing to erythrocytosis. No history of STEROID use. Renal ultrasound negative for possible secondary erythrocytosis. Hematology, Dr. Farrell, following, recommending IR marrow aspiration which is scheduled for this week. Patient completed phlebotomy on 12/26, hemoglobin improved from 18.8 to 16.5. Pending hypercoagulability workup: JAK2, erythropoietin levels, blood smear, antiphospholipid antibodies, Antithrombin III, factor V Leiden, homocysteine, lupus anticoagulant, protein C, protein S ? Continue LR 150 cc an hour ? Appreciate heme-onc recommendations # Alcohol use disorder # Hyperbilirubinemia Patient states he drinks 5-6 beers a day Last drink was day prior to admission 5?points Child Class A Life Expectancy 9?points MELD Score (2016)* 1.9% Estimated 3-Month Mortality Patient appears slightly listless and restless on examination but denies having any diaphoresis/visual or auditory hallucinations/tongue fasciculations or tremors currently Ultrasound liver - Negative for cholelithiasis, normal CBD. Gallbladder sludge noted. No signs of seizure withdrawals ? CIWA protocol in place ? Maddrey score: No surgery indicated at this time ? Banana bag alternative x1 given ? IV Folic and Thiamine supplementation # Triglyceridemia Triglyceride 151, normal, cholesterol 195, normal LDL 123 ? Consider lifestyle modifications ? Follow-up PCP outpatient Hospital Management: Dispo: Pending stroke workup; telemetry Bowel: Senna as needed Diet: Regular GI prophylaxis: Not required DVT prophylaxis: Heparin SC q12 Code status: Full Patient case was discussed with attending, Dr. Laura Charles DO and senior residents Dr. Stephens and Dr. Caba. Abbey Flores DO PGYI Attending Provider Attestation/Addendum Jung, Charlene Charles DO, attest that I was physically present for the [place] portions of the service and evaluated the patient with the resident and I reviewed and discussed the case with the resident and agree with the resident's findings and plans of care as documented above Abebe seen and evaluated this AM. No acute events overnight. Patient denies any shortness of breath, chest pain, fevers or chills. Will transfer to med/tele as pt is pending IR bone marrow biopsy on AM. Will continue with aspirin at this time.
--- NOTE | 2024-02-27 15:30 | PC.NURSE ---
talked to Maria Dolores from lab want bone marrow aspiration with Flow cytometry,maria dolores stated that is how they do it,she will enter order prior procedure,notified I talked Maria Dolores.
--- NOTE | 2024-02-27 16:58 | ESPR_ITS ---
RE: RUTHIE WALTERS : 1980 DATE OF SERVICE: 02/27/2024 SUBJECTIVE: Mr. Walters is a 43-year-old gentleman admitted to the hospital because of CVA. He also has polycythemia. Workup is in progress. He denies any systemic symptoms. He mentioned that he is feeling a little better. PHYSICAL EXAMINATION: General: He is alert. Vital Signs: He is afebrile. HEENT: Pupils are reactive to light and accommodation. Sclera are nonicteric. Neck: Neck is supple. There are no JVD or palpable mass. Lungs: There is good air entry bilaterally. They are clear to auscultation and percussion. Heart: Regular. Abdomen: Soft. Bowel sounds are present. Extremities: 3+ pedal pulses. There are no cyanosis or edema. RIBBON BLOCKMAKER: The patient is able to move his extremities and follows command. PLAN AND RECOMMENDATIONS: His blood work today has white blood cell count of 6.2, hemoglobin 16.5, hematocrit 48.4 and platelet count of 183,000. He yesterday had a phlebotomy done. We are waiting for the bone marrow aspiration, which will be scheduled by Dr. Martinez and as soon that is done and we have the results, we will make the final diagnosis and depending on the diagnosis, then the patient will be started on the treatment according to the protocol. DT: 16:20:52 TT: 16:57:00 Ref: [id number] - TID: [id number]
[2024-02-27] MEDS: amLODIPine BESYLATE 5 MG TABLET PO (20:21)
[2024-02-27] MEDS: ATORVASTATIN CALCIUM 20 MG TABLET 80 MG PO (20:21)
--- NOTE | 2024-02-27 23:42 | PD.VPROG1 ---
Telemedicine visit statement This visit was conducted with the use of phone was obtained on 02/27/24 at 2342. Documentation for date of: 02/27/24 Subjective Subjective Interval history: Patient is in telemetry. His left leg paresthesia and weakness are improving since admission. No new symptoms reported. Virtual exam Vital Signs Temp Pulse Resp BP Pulse Ox O2 Del Method O2 Flow Rate 98.2 F 66 15 130/91 H 98 Room Air 3 02/27/24 20:00 02/27/24 20:21 02/27/24 20:00 02/27/24 20:21 02/27/24 20:00 02/27/24 20:00 02/26/24 13:34 Objective Labs 02/27/24 05:30 02/27/24 05:30 Labs: Laboratory Results - last 24 hr 02/27/24 05:30 WBC 6.2 RBC 5.20 Hgb 16.5 H D Hct 48.4 MCV 93 MCH 31.7 MCHC 34.1 RDW Std Deviation 42.1 Plt Count 183 D Neut % (Auto) 63 Lymph % (Auto) 20 [place] % (Auto) 10 Eos % (Auto) 6 Baso % (Auto) 0 Neut # (Auto) 3.9 Lymph # (Auto) 1.2 [place] # (Auto) 0.7 Eos # (Auto) 0.4 Baso # (Auto) 0.0 Immature Gran # (Auto) 0.02 H Absolute Nucleated RBC 0.00 Immature Gran % 0 Nucleated RBC % 0 Sodium 139 Potassium 4.3 D Chloride 108 H Carbon Dioxide 26.3 Anion Gap 5 L BUN 9 Creatinine 0.9 Estim Creat Clear Calc 90.4 eGFR > 60 BUN/Creatinine Ratio 10 L Glucose 91 Calculated Osmolality 276 Calcium 8.9 Phosphorus 3.0 Magnesium 1.9 ABG Interpretation ABG results: 02/25/24 13:44 ABG pH 7.39 ABG pCO2 40 ABG pO2 84 ABG HCO3 25 ABG O2 Saturation 97 ABG Base Excess 0 Assessment & Plan Assessment (1) Acute CVA (cerebrovascular accident): Status: Acute Assessment and plan: With left leg monoparesis and paresthesia MRI brain showed right thalamic infarct Echocardiogram and transesophageal echocardiogram: Normal study Follow-up with hypercoagulopathy workup, Continue with aspirin 81 mg and statin but holding Plavix 75 mg. (2) Hypertensive urgency: Status: Resolved Assessment and plan: Continue with aggressive blood pressure management (3) Polycythemia: Patient is waiting for bone marrow biopsy by radiology.
[2024-02-28] VITALS (10 sets, daily range): BP systolic 106–136; BP diastolic 74–95; PULSE 56–80; RESP 12–19; TEMP 36.2–36.6; O2SAT 96–99
[2024-02-28 05:45] LABS: Basophils % (Auto) 1 % (0-2.5); Eosinophils # (Auto) 0.4 Thou/mm3 (0.0-0.5); Eosinophils % (Auto) 7 % (0-10); Hematocrit 49.1 % (41.0-53.0); Immature Granulocytes % (Auto) 0 % (0-0); Immature Granulocytes Auto 0.01 Thou/mm3 (0.00-0.00); Lymphocytes # (Auto) 1.4 Thou/mm3 (1.0-4.8); Lymphocytes % (Auto) 27 % (10-50); Mean Corpuscular HGB Conc 34.6 g/dl (31.0-37.0); Mean Corpuscular Hemoglobin 31.6 pg (25.0-35.0); Mean Corpuscular Volume 91 fL (80-100); Monocytes # (Auto) 0.6 Thou/mm3 (0.0-0.8); Monocytes % (Auto) 11 % (0-12); Neutrophils # (Auto) 2.9 Thou/mm3 (1.8-7.7); Neutrophils % (Auto) 54 % (37-80); Nucleated Red Blood Cell % 0 /100 WBC (0); Platelet Count 208 Thou/mm3 (140-440); RDW Standard Deviation 40.6 fL (35.1-43.9); Red Blood Count 5.38 Miln/mm3 (4.50-5.90); White Blood Count 5.3 Thou/mm3 (3.8-10.6)
[2024-02-28 06:37] LABS: Anion Gap 8 (7-16); BUN/Creatinine Ratio 10 Ratio (12-20); Blood Urea Nitrogen 8 mg/dL (9-23); Calcium 9.1 mg/dL (8.3-10.6); Carbon Dioxide 27.5 mMol/L (20.0-31.0); Chloride 104 mMol/L (98-107); Creatinine (Component) 0.8 mg/dL (0.6-1.3); Estimated Creatinine Clearance 101.8 mL/min (>60); Glucose 72 mg/dL (74-106); Magnesium 2.1 mg/dL (1.6-2.6); Osmolality,Calculated 274 (275-295); Phosphorous 4.1 mg/dL (2.4-5.1); Potassium 3.5 mMol/L (3.4-5.1); Sodium 139 mMol/L (136-145); eGFR > 60 See Note
--- NOTE | 2024-02-28 07:29 | ESPR_ITS ---
RE: RUTHIE WALTERS : 1980 DATE OF SERVICE: 02/28/2024 S: Mr. Walters is a 43-year-old gentleman with a known history of myeloproliferative disorder/polycythemia. Final pathology reports are pending. Workup is in progress. He denies any systemic symptoms. O: General: He is alert with no apparent distress. Vital Signs: He is afebrile. Vital signs stable. HEENT: Pupils are reactive to light and accommodation. Sclera are nonicteric. Neck: Supple. There is no JVD or palpable mass. Lungs: There is good air entry bilaterally. They are clear to auscultation and percussion. Heart: Regular. Abdomen: Soft. Bowel sounds are present. Extremities: 3+ pedal pulses. No cyanosis or edema. Central Nervous System: He has weakness on his left side, but he has a history of CVAs. LABORATORY DATA: His blood work today has a white blood cell count of 5.3, hemoglobin 17, hematocrit 49.1, and platelet count 208,000. He had a phlebotomy a few days ago. P: We will continue the present plan of treatment. DT: 07:06:48 TT: 07:28:00 Ref: [id number] - TID: [id number]
[2024-02-28] MEDS: ASPIRIN EC 81 MG TABEC PO (08:51)
[2024-02-28] MEDS: PANTOPRAZOLE 40 MG TABLET PO (08:51)
[2024-02-28] MEDS: Lisinopril 2.5 MG TABLET 5 MG PO (08:51)
[2024-02-28] MEDS: HEPARIN SOD INJ 5000 UNIT/ML VIAL SC ×2 (08:52→20:24)
--- NOTE | 2024-02-28 10:55 | PC.SS ---
Rounding note: Patient pending bone marrow biopsy results. Patient has been working with PT and ambulated over 200 feet. Possible d/c home.
--- NOTE | 2024-02-28 14:30 | ESPR_ITS ---
<Statement entered by Vidal Stephens MD - 02/28/24 18:43> Patient was seen and examined by me personally. I agree with most of the assessment and plan as discussed with the actuarial intern physician, and my attending, Dr. Payne. Holding 02/28 dose of ASA 81mg and plavix has been held for 3 days for bone marrow biopsy, s/f 12/5 a.m. Will resume ASA and plavix after biopsy, if safe to do so. NPO after MN; coags ordered. Patient continues to endorse weakness on left. Patient will need to follow up with hematology or neuro outpatient for hypercoag work up results. Vidal Stephens MD, PGY-3 Documentation for date of: 02/28/24 Subjective Subjective Interval history: No acute overnight events. Tolerating oral intake. Ambulating with walker. Denies fever, chills, headaches, chest pain, sob, cough, GI or urinary symptoms. Exam Vital Signs Temp Pulse Resp BP Pulse Ox O2 Del Method O2 Flow Rate 97.7 F 80 16 117/89 H 99 Room Air 3 02/28/24 11:52 02/28/24 11:52 02/28/24 11:52 02/28/24 11:52 02/28/24 11:52 02/28/24 11:52 02/26/24 13:34 Narrative Exam General: A/O x3, no acute distress, well-nourished, well-developed Eyes: PERRL, EOMI. Anicteric, vision grossly intact. Ears: No ear pain, no ear discharge, Hearing grossly intact. Nose: No nasal discharge. Mouth/Throat: Moist mucous membranes, poor denation, no redness, no lesions. Neck: Neck supple, non-tender, no cervical lymphadenopathy. Lungs: Clear WILIAN to auscultation and percussion, No accessory muscle use. Cardio: Normal S1/S2, regular rhythm, no murmurs, no JVD assessed. Abdomen: Soft, non-tender, no palpable masses, peristalsis present, no guarding or rebound. Extremities: Symmetrical, no significant deformities, no peripheral edema , non-tender, peripheral pulses presents. Skin: No rashes, no lesions, warm to touch. multiple tattoos throughout upper body. Neuro: Able to move all extremities, strength bilateral lower extremities 4/4, strength bilateral upper extremities 4/4, decreased sensation on left side of face, unequal sensation on left upper extremity and left lower extremity when compared to right upper extremity and right lower extremity respectively. No facial asymmetry and clear speech. Psych: Cooperative, appropriate mood and effect. Objective Labs 02/29/24 05:35 02/28/24 05:00 Labs: Laboratory Results - last 24 hr 02/28/24 05:00 WBC 5.3 RBC 5.38 Hgb 17.0 H Hct 49.1 MCV 91 MCH 31.6 MCHC 34.6 RDW Std Deviation 40.6 Plt Count 208 Neut % (Auto) 54 Lymph % (Auto) 27 [place] % (Auto) 11 Eos % (Auto) 7 Baso % (Auto) 1 Neut # (Auto) 2.9 Lymph # (Auto) 1.4 [place] # (Auto) 0.6 Eos # (Auto) 0.4 Baso # (Auto) 0.0 Immature Gran # (Auto) 0.01 H Absolute Nucleated RBC 0.00 Immature Gran % 0 Nucleated RBC % 0 Sodium 139 Potassium 3.5 D Chloride 104 Carbon Dioxide 27.5 Anion Gap 8 BUN 8 L Creatinine 0.8 Estim Creat Clear Calc 101.8 eGFR > 60 BUN/Creatinine Ratio 10 L Glucose 72 L Calculated Osmolality 274 L Calcium 9.1 Phosphorus 4.1 Magnesium 2.1 ABG Interpretation ABG results: 02/25/24 13:44 ABG pH 7.39 ABG pCO2 40 ABG pO2 84 ABG HCO3 25 ABG O2 Saturation 97 ABG Base Excess 0 Quality Measures Quality Measures VTE prophylaxis and stroke Suspected type of Stroke: Acute Ischemic Tenecteplase given: Reason(s) Tenecteplase not given: Outside the time window not given Rehab services: PT evaluation ordered VTE Prophylaxis: pharmaceutical Antithrombotic by day 2:: ordered Statin ordered: n/a Anticoagulation ordered for A-fib or flutter (current or hx): not indicated Assessment & Plan Assessment Current Active Medications: Generic Name Dose Route Start Last Admin Trade Name Freq PRN Reason Stop Dose Admin Acetaminophen 650 mg 02/21/24 20:29 Acetaminophen 325 Mg Tablet PO 03/22/24 20:28 Q6H PRN PAIN OR FEVER > 101 Amlodipine Besylate 5 mg 02/25/24 21:00 02/27/24 20:21 Amlodipine Besylate 5 Mg Tablet PO 03/26/24 20:59 5 mg HS MINO Administration Aspirin 81 mg 02/27/24 09:00 02/28/24 08:51 Aspirin Ec 81 Mg Tabec PO 03/28/24 08:59 81 mg QDAY MINO Administration Atorvastatin Calcium 80 mg 02/23/24 21:00 02/27/24 20:21 Atorvastatin Calcium 20 Mg Tablet PO 03/24/24 20:59 80 mg HS MINO Administration Clopidogrel Bisulfate 75 mg 02/24/24 09:00 02/26/24 11:35 Clopidogrel Bisulfate 75 Mg Tablet PO 03/25/24 08:59 Not Given QDAY MINO Heparin Sodium (Porcine) 5,000 unit 02/24/24 21:00 02/28/24 08:52 Heparin Sod Inj 5000 Unit/Ml Vial SC 03/09/24 20:59 5,000 unit BID MINO Administration Lisinopril 5 mg 02/27/24 09:00 02/28/24 08:51 Lisinopril 2.5 Mg Tablet PO 03/28/24 08:59 5 mg QDAY MINO Administration Ondansetron HCl 4 mg 02/21/24 20:29 Ondansetron Inj 2 Mg/Ml Inj 2 Ml IV 03/22/24 20:28 Q6H PRN NAUSEA OR VOMITING Protocol Pantoprazole Sodium 40 mg 02/22/24 09:00 02/28/24 08:51 Pantoprazole 40 Mg Tablet PO 03/23/24 08:59 40 mg QDAY MINO Administration Sennosides 1 tab 02/22/24 09:00 02/28/24 08:53 Senna Tablet PO 03/23/24 08:59 Not Given QDAY MINO Protocol Plan In summary: 43-year-old male PMHx of substance use disorder, 77-[id number]-jcjp tobacco user, possible HTN not on meds currently, admitted for acute CVA/TIA rule out and hypertensive emergency. MRI showed 20 mm right thalamic infarct. Patient started on AMLODIPINE, LISINOPRIL, ASPIRIN, CLOPIDOGREL and statin. Patient currently being worked up for polycythemia. We are holding PLAVIX and HEPARIN for bone marrow biopsy on . Pending JAK2 mutation, appropriate level, protein BOOK COVERER, factor V and anticoag's panel. MEGAN was done which is negative. Overall no changes in current plan. # Acute ischemic CVA # Right thalamic infarct # Dizziness # Left lower extremity paresthesia Symptoms overall improving Presents with left-sided numbness and weakness, outside window for tPA CT head and CTA head neck negative for acute pathology MRI demonstrated 20 mm right thalamic infarct 02/20. Echo negative bubble study no evidence of PFO or ASD, EF 65-70% Passed bedside swallowing Neurology recommended Holter monitor along with echo which was already done, ASPIRIN and PLAVIX and high intensity statin Patient cleared by physical therapy ? Neurochecks every 4 hours ? Head elevation greater than 30 degrees ? Continue ASPIRIN 80 mg daily ? Holding PLAVIX for biopsy on ? Continue statin ? Temperature control ? Euglycemic state ? Physical therapy: Patient independent # Hypertensive emergency Patient presented with blood pressure with systolics in the 200s In ED patient was given 20 of IV push hydralazine, and was placed on nicardipine drip Patient does not follow-up outpatient with PCP BP continue within normal limits ? Continue LISINOPRIL 5 mg daily ? 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 Patient active smoker, greater than 89-[id number] history, likely contributing to erythrocytosis. No history of STEROID use. Renal ultrasound negative for possible secondary erythrocytosis. Hematology, Dr. Farrell, following, recommending IR marrow aspiration which is scheduled for this week. Patient completed phlebotomy on 12/26, hemoglobin improved from 18.8 to 16.5. Pending hypercoagulability workup: JAK2, erythropoietin levels, blood smear, antiphospholipid antibodies, Antithrombin III, factor V Leiden, homocysteine, lupus anticoagulant, protein C, protein S ? Continue LR 150 cc an hour ? Appreciate heme-onc recommendations # Alcohol use disorder # Hyperbilirubinemia Patient states he drinks 5-6 beers a day Last drink was day prior to admission 5?points Child Class A Life Expectancy 9?points MELD Score (2016)* 1.9% Estimated 3-Month Mortality Patient appears slightly listless and restless on examination but denies having any diaphoresis/visual or auditory hallucinations/tongue fasciculations or tremors currently Ultrasound liver - Negative for cholelithiasis, normal CBD. Gallbladder sludge noted. No signs of seizure withdrawals ? CIWA protocol in place ? Maddrey score: No surgery indicated at this time ? Banana bag alternative x1 given ? IV Folic and Thiamine supplementation # Triglyceridemia Triglyceride 151, normal, cholesterol 195, normal LDL 123 ? Consider lifestyle modifications ? Follow-up PCP outpatient Hospital Management: Dispo: Pending stroke workup; telemetry Bowel: Senna as needed Diet: Regular GI prophylaxis: Not required DVT prophylaxis: Heparin SC q12 Code status: Full Patient case was discussed with attending, Dr. Elmer PECK and senior residents Dr. Stephens and Dr. Caba. Abbey Flores DO PGYI Attending Provider Attestation/Addendum I reviewed labs, imaging, EKG, home medications and prior available records. Face to face evaluation was performed by me. I have personally examined the patient and discussed assessment and plan with the IM team. I reviewed the resident note and agree with the plan with exceptions as below. Acute CVA: Brain MRI showed 2 cm right thalamic infarct. Echocardiogram showed no PFO but preserved EF. Started the patient on aspirin, atorvastatin, and Plavix. Held aspirin and Plavix prior to anticipated bone biopsy. Resume after. Erythrocytosis: Possibly contributing to his CVA. Hematology was consulted and is following. He is s/p phlebotomy. Continue to monitor H&H. Dual antiplatelet therapy as above.
[2024-02-28] MEDS: ATORVASTATIN CALCIUM 20 MG TABLET 80 MG PO (20:24)
[2024-02-28] MEDS: amLODIPine BESYLATE 5 MG TABLET PO (20:28)
--- NOTE | 2024-02-28 23:52 | ESPR_ITS ---
Documentation for date of: 02/28/24 Subjective Subjective Interval history: Patient is in telemetry. Continues to have left leg monoparesis and paresthesia but significantly improved since admission. Exam - Neurology Vital Signs Temp Pulse Resp BP Pulse Ox O2 Del Method O2 Flow Rate 97.4 F 63 18 136/95 H 97 Room Air 3 02/28/24 20:00 02/28/24 20:28 02/28/24 20:00 02/28/24 20:28 02/28/24 20:00 02/28/24 20:00 02/26/24 13:34 Narrative Exam GENERAL APPEARANCE: Well hydrated, well-nourished in no acute distress. HEENT: Normocephalic, atraumatic, extraocular movements intact. Pupils: Equal reacting to light and accommodation NECK: Supple, no JVD or bruits. CARDIOVASULAR: Heart: S1, S2 heard, regular without S3-S4 or murmur no rubs or gallops. LUNGS/CHEST: Clear to auscultation bilaterally. No rails, rhonchi, or wheezing. Normal inspection. ABDOMEN: Soft, nontender, with normal bowel sounds. No pulsatile masses. No rebound, rigidity, or guarding. Normal inspection and palpation. EXTREMITIES: Normal inspection and palpation. No edema, clubbing or cyanosis. SKIN: Warm and dry without rashes. Normal inspection. MUSCULOSKELETAL: No cervical, thoracic, lumbar or midline bony tenderness. Normal inspection. NEURO: Alert, awake and oriented x3. Cranial nerves: II through XII grossly intact. Speech and language: Normal with no dysarthria or dysphasia. Motor system: Tone and bulk: Normal: Strength: 5 out of 5 in all 4 extremities; No pronator drift noted. Deep tendon reflexes: 2+ bilaterally symmetrical. Plantar reflex: Downgoing bilaterally. Sensory system: Intact to all modalities of sensation bilaterally. Coordination: Intact to cvxjbz-ukcb-pvpfx and jnjt-qqjf-jxow test bilaterally. No ataxia, no dysmetria, or dysdiadochokinesia noted. No intention tremors noted. Gait: Walked with a walker. No signs of meningeal irritation noted. PSYCHIATRIC: Normal mood and affect. Objective Labs 02/28/24 05:00 02/28/24 05:00 Labs: Laboratory Results - last 24 hr 02/28/24 05:00 WBC 5.3 RBC 5.38 Hgb 17.0 H Hct 49.1 MCV 91 MCH 31.6 MCHC 34.6 RDW Std Deviation 40.6 Plt Count 208 Neut % (Auto) 54 Lymph % (Auto) 27 [place] % (Auto) 11 Eos % (Auto) 7 Baso % (Auto) 1 Neut # (Auto) 2.9 Lymph # (Auto) 1.4 [place] # (Auto) 0.6 Eos # (Auto) 0.4 Baso # (Auto) 0.0 Immature Gran # (Auto) 0.01 H Absolute Nucleated RBC 0.00 Immature Gran % 0 Nucleated RBC % 0 Sodium 139 Potassium 3.5 D Chloride 104 Carbon Dioxide 27.5 Anion Gap 8 BUN 8 L Creatinine 0.8 Estim Creat Clear Calc 101.8 eGFR > 60 BUN/Creatinine Ratio 10 L Glucose 72 L Calculated Osmolality 274 L Calcium 9.1 Phosphorus 4.1 Magnesium 2.1 ABG Interpretation ABG results: 02/25/24 13:44 ABG pH 7.39 ABG pCO2 40 ABG pO2 84 ABG HCO3 25 ABG O2 Saturation 97 ABG Base Excess 0 Assessment & Plan Assessment and plan (1) Acute CVA (cerebrovascular accident): Status: Acute Assessment and plan: With left leg monoparesis and paresthesia MRI brain showed right thalamic infarct Echocardiogram: Normal study Underwent transesophageal echocardiogram : negative Needs extended Holter monitoring to evaluate for cardiac arrhythmias Follow-up with hypercoagulopathy workup and it becomes available Continue with aspirin 81 mg and Plavix 75 mg for prophylaxis along with high intensity statin. He needs to take atleast ASA 81 mg if he is going to have Bone marrow biopsy. (2) Hypertensive urgency: Status: Resolved Assessment and plan: Continue with aggressive blood pressure management (3) Polycythemia: Status: Acute Assessment and plan: Needs hematology evaluation for periodic phlebotomy. Recommended Bone marrow biopsy, and it is scheduled for tomorrow by radiology.
[2024-02-29] VITALS (8 sets, daily range): BP systolic 110–126; BP diastolic 71–86; PULSE 63–90; RESP 12–22; TEMP 36.2–36.8; O2SAT 96–98; BMI 23.6
[2024-02-29 06:04] LABS: Basophils % (Auto) 1 % (0-2.5); Eosinophils # (Auto) 0.4 Thou/mm3 (0.0-0.5); Eosinophils % (Auto) 6 % (0-10); Hematocrit 49.3 % (41.0-53.0); Hemoglobin 16.9 g/dL (13.5-16.0); Immature Granulocytes % (Auto) 0 % (0-0); Immature Granulocytes Auto 0.01 Thou/mm3 (0.00-0.00); Lymphocytes # (Auto) 1.7 Thou/mm3 (1.0-4.8); Lymphocytes % (Auto) 31 % (10-50); Mean Corpuscular HGB Conc 34.3 g/dl (31.0-37.0); Mean Corpuscular Hemoglobin 31.4 pg (25.0-35.0); Mean Corpuscular Volume 92 fL (80-100); Monocytes # (Auto) 0.5 Thou/mm3 (0.0-0.8); Monocytes % (Auto) 9 % (0-12); Neutrophils # (Auto) 2.9 Thou/mm3 (1.8-7.7); Neutrophils % (Auto) 52 % (37-80); Nucleated Red Blood Cell % 0 /100 WBC (0); Platelet Count 218 Thou/mm3 (140-440); Red Blood Count 5.39 Miln/mm3 (4.50-5.90); White Blood Count 5.5 Thou/mm3 (3.8-10.6)
[2024-02-29 06:18] LABS: Partial Thromboplastin Time 27.1 Seconds (22.0-36.0); Prothrombin Time 11.3 Seconds (9.0-12.2)
[2024-02-29 06:25] LABS: Magnesium 2.2 mg/dL (1.6-2.6); Phosphorous 3.9 mg/dL (2.4-5.1)
[2024-02-29 07:02] LABS: Protein C Activity* 145 % normal (70-180)
[2024-02-29 07:06] LABS: Protein S Activity* 93 % normal (70-150)
[2024-02-29] MEDS: Lisinopril 2.5 MG TABLET 5 MG PO (08:50)
[2024-02-29] MEDS: PANTOPRAZOLE 40 MG TABLET PO (08:50)
--- NOTE | 2024-02-29 10:47 | ESPR_ITS ---
Documentation for date of: 02/29/24 Subjective Subjective Interval history: No acute overnight events. Persistent but improved left lower extremity numbness. Ambulating with walker independently. Denies fever, chills, headaches, chest pain, sob, cough, GI or urinary symptoms. Exam Vital Signs Temp Pulse Resp BP Pulse Ox O2 Del Method O2 Flow Rate 97.7 F 74 22 H 125/86 H 97 Room Air 3 02/29/24 08:00 02/29/24 08:50 02/29/24 08:00 02/29/24 08:50 02/29/24 08:00 02/29/24 08:00 02/26/24 13:34 Objective Labs 02/29/24 05:35 02/28/24 05:00 Labs: Laboratory Results - last 24 hr 02/24/24 02/29/24 05:42 05:35 WBC 5.5 RBC 5.39 Hgb 16.9 H Hct 49.3 MCV 92 MCH 31.4 MCHC 34.3 RDW Std Deviation 40.0 Plt Count 218 Neut % (Auto) 52 Lymph % (Auto) 31 [place]son % (Auto) 9 Eos % (Auto) 6 Baso % (Auto) 1 Neut # (Auto) 2.9 Lymph # (Auto) 1.7 [place] # (Auto) 0.5 Eos # (Auto) 0.4 Baso # (Auto) 0.0 Immature Gran # (Auto) 0.01 H Absolute Nucleated RBC 0.00 Immature Gran % 0 Nucleated RBC % 0 PT 11.3 INR 1.0 APTT 27.1 Protein C Activity 145 Protein S Activity 93 Phosphorus 3.9 Magnesium 2.2 ABG Interpretation ABG results: 02/25/24 13:44 ABG pH 7.39 ABG pCO2 40 ABG pO2 84 ABG HCO3 25 ABG O2 Saturation 97 ABG Base Excess 0 Quality Measures Quality Measures none (admitted for stroke ) Assessment & Plan Assessment Current Active Medications: Generic Name Dose Route Start Last Admin Trade Name Freq PRN Reason Stop Dose Admin Acetaminophen 650 mg 02/21/24 20:29 Acetaminophen 325 Mg Tablet PO 03/22/24 20:28 Q6H PRN PAIN OR FEVER > 101 Amlodipine Besylate 5 mg 02/25/24 21:00 02/28/24 20:28 Amlodipine Besylate 5 Mg Tablet PO 03/26/24 20:59 5 mg HS MINO Administration Aspirin 81 mg 02/27/24 09:00 02/28/24 08:51 Aspirin Ec 81 Mg Tabec PO 03/28/24 08:59 81 mg QDAY MINO Administration Atorvastatin Calcium 80 mg 02/23/24 21:00 02/28/24 20:24 Atorvastatin Calcium 20 Mg Tablet PO 03/24/24 20:59 80 mg HS MINO Administration Clopidogrel Bisulfate 75 mg 02/24/24 09:00 02/26/24 11:35 Clopidogrel Bisulfate 75 Mg Tablet PO 03/25/24 08:59 Not Given QDAY MINO Heparin Sodium (Porcine) 5,000 unit 02/24/24 21:00 02/28/24 20:24 Heparin Sod Inj 5000 Unit/Ml Vial SC 03/09/24 20:59 5,000 unit BID MINO Administration Lisinopril 5 mg 02/27/24 09:00 02/29/24 08:50 Lisinopril 2.5 Mg Tablet PO 03/28/24 08:59 5 mg QDAY MINO Administration Ondansetron HCl 4 mg 02/21/24 20:29 Ondansetron Inj 2 Mg/Ml Inj 2 Ml IV 03/22/24 20:28 Q6H PRN NAUSEA OR VOMITING Protocol Pantoprazole Sodium 40 mg 02/22/24 09:00 02/29/24 08:50 Pantoprazole 40 Mg Tablet PO 03/23/24 08:59 40 mg QDAY MINO Administration Plan In summary: 43-year-old male PMHx of substance use disorder, [id number] tobacco user, possible HTN not on meds currently, admitted for acute CVA/TIA rule out and hypertensive emergency. MRI showed 20 mm right thalamic infarct. Patient started on AMLODIPINE, LISINOPRIL, ASPIRIN, CLOPIDOGREL and statin. Patient currently being worked up for polycythemia. We are holding PLAVIX and HEPARIN for bone marrow biopsy on . Pending JAK2 mutation, appropriate level, protein [employer], factor V and anticoag's panel. MEGAN was done which is negative. Overall no changes in current plan. Radiology team confirmed schedule bone marrow aspiration tomorrow 02/28. # Acute ischemic CVA # Right thalamic infarct # Dizziness # Left lower extremity paresthesia Symptoms overall improving Presents with left-sided numbness and weakness, outside window for tPA CT head and CTA head neck negative for acute pathology MRI demonstrated 20 mm right thalamic infarct 02/20. Echo negative bubble study no evidence of PFO or ASD, EF 65-70% Passed bedside swallowing Neurology recommended Holter monitor along with echo which was already done, ASPIRIN and PLAVIX and high intensity statin Patient cleared by physical therapy ? Neurochecks every 4 hours ? Head elevation greater than 30 degrees ? Continue ASPIRIN 80 mg daily ? Holding PLAVIX for biopsy on Monday ? Continue statin ? Temperature control ? Euglycemic state ? Physical therapy: Patient independent # Hypertensive emergency Patient presented with blood pressure with systolics in the 200s In ED patient was given 20 of IV push hydralazine, and was placed on nicardipine drip Patient does not follow-up outpatient with PCP BP continue within normal limits ? Continue LISINOPRIL 5 mg daily ? 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 Patient active smoker, greater than 61-[id number] history, likely contributing to erythrocytosis. No history of STEROID use. Renal ultrasound negative for possible secondary erythrocytosis. Hematology, Dr. Farrell, following, recommending IR marrow aspiration which is scheduled for this week. Patient completed phlebotomy on 12/26, hemoglobin improved from 18.8 to 16.5. Pending hypercoagulability workup: JAK2, erythropoietin levels, blood smear, antiphospholipid antibodies, Antithrombin III, factor V Leiden, homocysteine, lupus anticoagulant, protein C, protein S ? Continue LR 150 cc an hour ? Appreciate heme-onc recommendations # Alcohol use disorder # Hyperbilirubinemia Patient states he drinks 5-6 beers a day Last drink was day prior to admission 5?points Child Class A Life Expectancy 9?points MELD Score (2016)* 1.9% Estimated 3-Month Mortality Patient appears slightly listless and restless on examination but denies having any diaphoresis/visual or auditory hallucinations/tongue fasciculations or tremors currently Ultrasound liver - Negative for cholelithiasis, normal CBD. Gallbladder sludge noted. No signs of seizure withdrawals ? CIWA protocol in place ? Maddrey score: No surgery indicated at this time ? Banana bag alternative x1 given ? IV Folic and Thiamine supplementation # Triglyceridemia Triglyceride 151, normal, cholesterol 195, normal LDL 123 ? Consider lifestyle modifications ? Follow-up PCP outpatient Hospital Management: Dispo: Pending stroke workup; telemetry Bowel: Senna as needed Diet: Regular GI prophylaxis: Not required DVT prophylaxis: Heparin SC q12 Code status: Full Patient case was discussed with attending, Dr. Elmer PECK and senior residents Dr. Stephens and Dr. Caba. Abbey Flores DO PGYI Attending Provider Attestation/Addendum I reviewed labs, imaging, EKG, home medications and prior available records. Face to face evaluation was performed by me. I have personally examined the patient and discussed assessment and plan with the IM team. I reviewed the resident note and agree with the plan with exceptions as below. Acute CVA: Brain MRI showed 2 cm right thalamic infarct. Echocardiogram showed no PFO but preserved EF. Started the patient on aspirin, atorvastatin, and Plavix. Held aspirin and Plavix prior to anticipated bone biopsy. Resume after. Biopsy need to be done before 10 AM for the sample to be sent on time. Erythrocytosis: Possibly contributing to his CVA. Hematology was consulted and is following. He is s/p phlebotomy. Continue to monitor H&H. Dual antiplatelet therapy as above.
[2024-02-29] MEDS: ASPIRIN EC 81 MG TABEC PO (11:12)
--- NOTE | 2024-02-29 13:37 | PC.PT ---
Patient will be D/C from physical therapy services secondary to patient is at his PLOF. He is able to ambulate independently with no DME.
[2024-02-29] MEDS: amLODIPine BESYLATE 5 MG TABLET PO (20:49)
[2024-02-29] MEDS: ATORVASTATIN CALCIUM 20 MG TABLET 80 MG PO (20:49)
--- NOTE | 2024-02-29 22:40 | PD.NEUROPROG ---
Documentation for date of: 02/29/24 Subjective Subjective Interval history: Patient is in telemetry. Continues to have left leg monoparesis and paresthesia but significantly improved since admission. Exam - Neurology Vital Signs Temp Pulse Resp BP Pulse Ox O2 Del Method O2 Flow Rate 97.5 F 72 17 126/80 96 Room Air 3 02/29/24 20:00 02/29/24 20:49 02/29/24 20:00 02/29/24 20:49 02/29/24 20:00 02/29/24 20:00 02/26/24 13:34 Narrative Exam GENERAL APPEARANCE: Well hydrated, well-nourished in no acute distress. HEENT: Normocephalic, atraumatic, extraocular movements intact. Pupils: Equal reacting to light and accommodation NECK: Supple, no JVD or bruits. CARDIOVASULAR: Heart: S1, S2 heard, regular without S3-S4 or murmur no rubs or gallops. LUNGS/CHEST: Clear to auscultation bilaterally. No rails, rhonchi, or wheezing. Normal inspection. ABDOMEN: Soft, nontender, with normal bowel sounds. No pulsatile masses. No rebound, rigidity, or guarding. Normal inspection and palpation. EXTREMITIES: Normal inspection and palpation. No edema, clubbing or cyanosis. SKIN: Warm and dry without rashes. Normal inspection. MUSCULOSKELETAL: No cervical, thoracic, lumbar or midline bony tenderness. Normal inspection. NEURO: Alert, awake and oriented x3. Cranial nerves: II through XII grossly intact. Speech and language: Normal with no dysarthria or dysphasia. Motor system: Tone and bulk: Normal: Strength: 5 out of 5 in all 4 extremities; No pronator drift noted. Deep tendon reflexes: 2+ bilaterally symmetrical. Plantar reflex: Downgoing bilaterally. Sensory system: Intact to all modalities of sensation bilaterally. Coordination: Intact to ozuhop-eesa-jrwww and deoy-rpyc-qdcc test bilaterally. No ataxia, no dysmetria, or dysdiadochokinesia noted. No intention tremors noted. Gait: Walked with a walker. No signs of meningeal irritation noted. PSYCHIATRIC: Normal mood and affect. Objective Labs 02/29/24 05:35 02/28/24 05:00 Labs: Laboratory Results - last 24 hr 02/24/24 02/29/24 05:42 05:35 WBC 5.5 RBC 5.39 Hgb 16.9 H Hct 49.3 MCV 92 MCH 31.4 MCHC 34.3 RDW Std Deviation 40.0 Plt Count 218 Neut % (Auto) 52 Lymph % (Auto) 31 [place] % (Auto) 9 Eos % (Auto) 6 Baso % (Auto) 1 Neut # (Auto) 2.9 Lymph # (Auto) 1.7 [place] # (Auto) 0.5 Eos # (Auto) 0.4 Baso # (Auto) 0.0 Immature Gran # (Auto) 0.01 H Absolute Nucleated RBC 0.00 Immature Gran % 0 Nucleated RBC % 0 PT 11.3 INR 1.0 APTT 27.1 Protein C Activity 145 Protein S Activity 93 Phosphorus 3.9 Magnesium 2.2 ABG Interpretation ABG results: 02/25/24 13:44 ABG pH 7.39 ABG pCO2 40 ABG pO2 84 ABG HCO3 25 ABG O2 Saturation 97 ABG Base Excess 0 Assessment & Plan Assessment and plan (1) Acute CVA (cerebrovascular accident): Status: Acute Assessment and plan: With left leg monoparesis and paresthesia MRI brain showed right thalamic infarct Echocardiogram: Normal study Underwent transesophageal echocardiogram : negative Needs extended Holter monitoring to evaluate for cardiac arrhythmias Follow-up with hypercoagulopathy workup and it becomes available Continue with aspirin 81 mg and Plavix 75 mg for prophylaxis along with high intensity statin. He needs to take atleast ASA 81 mg if he is going to have Bone marrow biopsy. (2) Hypertensive urgency: Status: Resolved Assessment and plan: Continue with aggressive blood pressure management (3) Polycythemia: Status: Acute Assessment and plan: Needs hematology evaluation for periodic phlebotomy. Recommended Bone marrow biopsy, and it is scheduled for tomorrow by radiology.
[2024-03-01] VITALS (9 sets, daily range): BP systolic 110–147; BP diastolic 74–99; PULSE 50–88; RESP 10–15; TEMP 36.3–36.9; O2SAT 92–100; BMI 23.6
[2024-03-01 06:51] LABS: Antithrombin III, Activity 116 % normal (80-135); Antithrombin III, Antigen 94 % normal (80-120); Factor V Leiden Mutation NEGATIVE; PTT-LA Screen 35 seconds (< OR = 40); dRVVT Screen 35 seconds (< OR = 45)
[2024-03-01 07:02] LABS: Cardiolipin Ab IgA <2.0 APL-U/mL; Cardiolipin Ab IgG 16.8 GPL-U/mL
--- NOTE | 2024-03-01 08:20 | PC.NURSE ---
Patient was taken to procedure at this time.
[2024-03-01 09:01] LABS: Basophils # (Auto) 0.1 Thou/mm3 (0.0-0.2); Basophils % (Auto) 1 % (0-2.5); Eosinophils # (Auto) 0.3 Thou/mm3 (0.0-0.5); Eosinophils % (Auto) 5 % (0-10); Hematocrit 50.6 % (41.0-53.0); Hemoglobin 17.3 g/dL (13.5-16.0); Immature Granulocytes % (Auto) 0 % (0-0); Immature Granulocytes Auto 0.01 Thou/mm3 (0.00-0.00); Lymphocytes # (Auto) 1.4 Thou/mm3 (1.0-4.8); Lymphocytes % (Auto) 24 % (10-50); Mean Corpuscular HGB Conc 34.2 g/dl (31.0-37.0); Mean Corpuscular Hemoglobin 31.5 pg (25.0-35.0); Mean Corpuscular Volume 92 fL (80-100); Monocytes # (Auto) 0.5 Thou/mm3 (0.0-0.8); Monocytes % (Auto) 8 % (0-12); Neutrophils # (Auto) 3.7 Thou/mm3 (1.8-7.7); Neutrophils % (Auto) 62 % (37-80); Nucleated Red Blood Cell % 0 /100 WBC (0); Platelet Count 234 Thou/mm3 (140-440); RDW Standard Deviation 40.1 fL (35.1-43.9)
--- NOTE | 2024-03-01 09:17 | XR_ITS ---
Examination: CT-guided percutaneous bone marrow aspiration right posterior superior iliac crest CT-guided percutaneous bone biopsy deep right posterior superior iliac crest CT pelvis without intravenous contrast Date and time of procedure: March 01, 2024 0934 hours INDICATIONS: Diagnosis polycythemia Informed consent provided. A timeout was completed verifying correct patient, procedure, site and positioning. . Technique: Axial 3 mm sections were obtained for localization of the right posterior superior iliac crest Appropriate area is marked. The patient's site was prepped and draped in sterile fashion Maximal sterile barrier technique utilized, including hand hygiene Local anesthesia was obtained with 1% lidocaine. Low dose protocols were performed. One or more of the following dose reduction techniques were used; automated exposure control, adjustment of the mA and/or KV according to patient size, use of iterative reconstruction technique. Utilizing CT fluoroscopic guidance 14-gauge bone biopsy needle placed in the right posterior superior iliac crest 5 cc marrow aspirate obtained which appears sufficient 4 cm bone core obtained Estimated blood loss 2 cc Patient appears in stable condition during this procedure. At completion of the procedure, the patient is in satisfactory condition. Complete pathology report to follow. Impression: Successful CT-guided percutaneous bone marrow aspiration right posterior superior iliac crest Successful CT-guided percutaneous bone biopsy deep right posterior superior iliac crest
[2024-03-01 09:21] LABS: Albumin, Serum 4.5 gm/dL (3.5-5.0); Anion Gap 8 (7-16); BUN/Creatinine Ratio 10 Ratio (12-20); Blood Urea Nitrogen 10 mg/dL (9-23); Calcium 9.4 mg/dL (8.3-10.6); Calcium (Corrected) 9.4 mg/dL (8.5-10.1); Carbon Dioxide 29.4 mMol/L (20.0-31.0); Chloride 103 mMol/L (98-107); Estimated Creatinine Clearance 81.4 mL/min (>60); Glucose 91 mg/dL (74-106); Osmolality,Calculated 278 (275-295); Phosphorous 3.4 mg/dL (2.4-5.1); Potassium 4.1 mMol/L (3.4-5.1); Sodium 140 mMol/L (136-145); eGFR > 60 See Note
[2024-03-01 09:34] LABS: Partial Thromboplastin Time 27.3 Seconds (22.0-36.0); Prothrombin Time 11.4 Seconds (9.0-12.2)
[2024-03-01] MEDS: fentaNYL CIT INJ 50 mCg/ML AMP 2ML 100 MCG IVP (09:53)
[2024-03-01 10:13] LABS: Flow Cytometry* See Sep Rpt
[2024-03-01] MEDS: Lisinopril 2.5 MG TABLET 5 MG PO (10:22)
[2024-03-01] MEDS: PANTOPRAZOLE 40 MG TABLET PO (10:22)
--- NOTE | 2024-03-01 10:45 | PC.NURSE ---
Patient transferred to [facility] via [facility] post bone marrow biopsy and aspiration. Patient A&O x4. Report given to MAGUE Whitfield. Dressing clean, dry, and intact.
--- NOTE | 2024-03-01 12:01 | ESDS_ITS ---
Planned Discharge Date 03/01/24 DS: Providers Provider Date of admission: 02/21/24 20:29 Primary care physician: Gerson Parks MD Admitting Provider: Doug Payne MD Attending Provider on Admission: Doug Payne MD Consults: 02/21/24 17:35 Consult to Neurology / Tele-Neurology Routine Comment: Consulting Provider: [facility] 02/21/24 20:35 Consult to Neurology / Tele-Neurology Stat Comment: Consulting Provider: rBy Olson Referral Physical Therapy Stat Comment: Physician Instructions: 02/24/24 11:36 Consult to Cardiology Routine Comment: MEGAN prior to DC per neuro recs Consulting Provider: Gil Albert 02/25/24 09:56 Consult to Hematology Routine Comment: Erythrocytosis Consulting Provider: Natacha Farrell Attending Provider on DC: Doug Payne MD Discharging Provider: Doug Payne MD DS: Diagnosis Problem List Completed Was Problem List Reviewed/Reconciled?: Yes Hospital Course Hospital Course Hospital course: This is a 43-year-old male with no significant PMHx, presenting with dizziness, difficulty walking, and left leg and shoulder numbness or admitted for acute ischemic CVA and right thalamic infarct. Patient was started on PLAVIX, ASPIRIN and high-dose statin for hypertriglyceridemia. In interim patient also had hypertensive emergency for which he was started on LISINOPRIL and AMLODIPINE. Had important findings of polycythemia, patient currently active smoker, for which he underwent extensive coagulopathy workup (currently pending, to be reviewed by hematology), and completed a IR bone marrow aspirate under recommendations of hematology. Patient will follow-up with hematology and neurology after discharge. Completed physical therapy. Patient dynamically stable, ambulating independently at the time of discharge, patient discharged to home. He will follow-up with neurology and hematology within 1 to 2 weeks of discharge, continue occasions as prescribed. PATIENT INSTRUCTIONS: ? Follow-up with PCP within 1 week of discharge ? Follow-up with neurology within 1 week of discharge ? Follow-up with hematology with 1 to 2-week of discharge ? Continue monitoring blood pressure daily ? Continue taking ASPIRIN 81 mg daily ? Continue taking PLAVIX 5 mg once daily ? Continue take ATORVASTATIN 80 mg daily ? Continue taking AMLODIPINE 5 mg daily ? Continue taking NICOTINE patches and gum as prescribed. ADMISSION DIAGNOSES: # Acute ischemic CVA # Right thalamic infarct # Dizziness # Left lower extremity paresthesia # Hypertensive emergency # Polycythemia # Active smoker # Alcohol use disorder # Hyperbilirubinemia # Triglyceridemia Patient case was discussed with attending, Doug Payne MD and senior residents Dr. Stephens and Dr. Caba. Abbey Flores DO PGYI Time Spent with Patient Time attestation: Total time spent providing and/or coordinating discharge services: Greater than 35 minutes Exam Vital Signs Temp Pulse Resp BP Pulse Ox O2 Del Method O2 Flow Rate 98.5 F 68 12 140/98 H 97 Nasal Cannula 3 03/01/24 08:32 03/01/24 10:22 03/01/24 10:00 03/01/24 10:22 03/01/24 10:00 03/01/24 10:00 03/01/24 10:00 Narrative Exam General: A/O x3, no acute distress, well-nourished, well-developed Eyes: PERRL, EOMI. Anicteric, vision grossly intact. Ears: No ear pain, no ear discharge, Hearing grossly intact. Nose: No nasal discharge. Mouth/Throat: Moist mucous membranes, poor denation, no redness, no lesions. Neck: Neck supple, non-tender, no cervical lymphadenopathy. Lungs: Clear WILIAN to auscultation and percussion, No accessory muscle use. Cardio: Normal S1/S2, regular rhythm, no murmurs, no JVD assessed. Abdomen: Soft, non-tender, no palpable masses, peristalsis present, no guarding or rebound. Extremities: Symmetrical, no significant deformities, no peripheral edema , non-tender, peripheral pulses presents. Skin: No rashes, no lesions, warm to touch. multiple tattoos throughout upper body. Neuro: Able to move all extremities, strength bilateral lower extremities 4/4, strength bilateral upper extremities 4/4, decreased sensation on left side of face, unequal sensation on left upper extremity and left lower extremity when compared to right upper extremity and right lower extremity respectively. No facial asymmetry and clear speech. Psych: Cooperative, appropriate mood and effect. Discharge Plan Plan Patient Disposition: HOME (Self Care) Patient condition on transfer: Stable Care Plan Goals: Monitor blood pressure daily. Take ASA for 21 days. Take Plavix once daily for life. Take Atorvastatin once daily for life. Take Amlodipine once daily to maintain good blood pressure control. F/U with PCP within 1 week of discharge. Obtain referral for Hematology/Oncology and schedule appointment [facility]VARO. Follow up on hypercoaguable work up with Dr. Farrell F/U with Neurology- Dr. Olson within 1-2 weeks of discharge. Please quit smoking. Nicotine patches and gum have been sent for you. Use 1 patch/24 hours; 1 lozenge every 1-2 hours (max 20 lozenges per day). Follow up with your PCP for additional resources. Return to ED if symptoms recur or worsen. Prescriptions/Referrals Prescriptions/Med Rec: New amlodipine [Norvasc] 10 mg tablet 10 mg PO QDAY 30 Days Qty: 30 0RF aspirin 81 mg Tablet,Delayed Release (Dr/Ec) 81 mg PO QDAY 21 Days Qty: 21 0RF atorvastatin [Lipitor] 80 mg tablet 80 mg PO HS 30 Days Qty: 30 3RF clopidogrel 75 mg Tablet 75 mg PO QDAY 30 Days Qty: 30 3RF nicotine 21 mg/24 hr patch 24 hour 21 mg topical QDAY Qty: 28 2RF Rx Instructions: Use 1 patch daily nicotine (polacrilex) 4 mg lozenge 4 mg buccal .q1-2h MDD 80mg PRN (Reason: nicotine cravings) 30 Days Qty: 108 3RF Rx Instructions: Take 1 lozenge every 1-2 hours. Max 20 lozenges per day Referrals: Natacha Farrell MD [Physician] - Gerson Parks MD [Primary Care Provider] - Bry Olson MD [Physician] - Patient/Caregiver Discharge Instructions Discharge Activity: as per physical therapy Education Materials: Quit-Smoking Tools Help for ..., Nicotine Oral Lozenge 4 mg, Nicotine Patch 21 mg, Using Blood Thinners Anticoagulants, Preparing Your Home After Stroke, Hypertension Stroke Link, Risk Factors for Stroke, Healthy Lifestyle to Prevent ... Print Language: Citizen Of [place] Stand Alone Forms: [employer]icha Award Info., Patient Portal Info Letter Discharge Order Discharge Orders: Discharge (Routine); Ordered 03/01/24 Ordered By: Vidal Stephens Quality Discharge Quality Measures VTE prophylaxis Attestestation Attestation I reviewed labs, imaging, EKG, home medications and prior available records. Face to face evaluation was performed by me. I have personally examined the patient and discussed assessment and plan with the IM team. I reviewed the resident note and agree with the plan with exceptions as below. Acute CVA: Brain MRI showed 2 cm right thalamic infarct. Echocardiogram showed no PFO but preserved EF. Started the patient on aspirin, atorvastatin, and Plavix. Held aspirin and Plavix prior to anticipated bone biopsy. Resume after and upon discharge. Erythrocytosis: Possibly contributing to his CVA. Hematology was consulted and is following. He is s/p phlebotomy. Continue to monitor H&H. Status post bone marrow biopsy. Follow-up with results with hematology/oncology as outpatient. Resumed dual antiplatelet therapy as above. Tobacco use: Ordered nicotine 4 mg buccal as needed. Time spent is 40 minutes. More than 50% of the time was spent on patient education and coordination of care.
--- NOTE | 2024-03-01 15:04 | PC.SS ---
Follow up note: SS spoke to PT re: DME request. They stated they did not recommend any DME due to patient ambulating independently without any assisted devices. SS notified of patient via p/c.
[2024-03-04 06:49] LABS: B2-Glycoprotein I Ab IgA <2.0 U/mL; B2-Glycoprotein I Ab IgG <2.0 U/mL; B2-Glycoprotein I Ab IgM <2.0 U/mL; Cardiolipin Ab IgM <2.0 MPL-U/mL; Phos.Serine Ab IgG <9 U (< OR = 30); Phos.Serine Ab IgM <9 U (< OR = 30)
== END 2024-03-01 13:34 | disposition home or self-care (01) | DRG 45 ==
LOC: SERX 20:09 → SERHOLD 20:49 → S2NX 22:24
PROVIDERS: Internal Medicine Cardiovascular Disease; Nurse Practitioner Primary Care; Psychiatry & Neurology Neurology; Specialist; Student in an Organized Health Care Education/Training Program; Admitting Provider Student in an Organized Health Care Education/Training Program; Emergency Provider Emergency Medicine; PCP Family Medicine; Visit Provider Student in an Organized Health Care Education/Training Program
PROC: (CPT 93312; principal; 2024-02-26 09:30)
DX: I63.50 Cerebral infarction due to unspecified occlusion or stenosis of unspecified cerebral artery (principal); I16.1 Hypertensive emergency; I47.10 Supraventricular tachycardia, unspecified; R29.701 NIHSS score 1; I10 Essential (primary) hypertension; D75.1 Secondary polycythemia; E78.1 Pure hyperglyceridemia; R47.81 Slurred speech; G83.14 Monoplegia of lower limb affecting left nondominant side; F10.10 Alcohol abuse, uncomplicated; R17 Unspecified jaundice; Y90.0 Blood alcohol level of less than 20 mg/100 ml; D47.1 Chronic myeloproliferative disease; K82.8 Other specified diseases of gallbladder; F17.210 Nicotine dependence, cigarettes, uncomplicated; Z56.0 Unemployment, unspecified; Z79.82 Long term (current) use of aspirin; Z79.02 Long term (current) use of antithrombotics/antiplatelets; Z79.899 Other long term (current) drug therapy
CPT/HCPCS: 36415; 36600; 70450; 70496; 70498; 70553; 76705; 76770; 77012; 80048; 80053; 80061; 80069; 80307; 80320; 81001; 81219; 81241; 81270; 81279; 81339; 82607; 82668; 82803; 83036; 83090; 83615; 83735; 83880; 84100; 84443; 84484; 85025; 85300; 85301; 85303; 85306; 85610; 85613; 85730; 86146; 86147; 86148; 92610; 93005; 93306; 93312; 96361; 96374; 97162; 99152; 99285; A4649; A9579; J0360; J1643; J2250; J3010; J3490; J7030; Q9967; A9270; G0480; J1644; J1920